=== PATIENT | female | born 1950 | race Caucasian/White ===

== ENCOUNTER → 2016-11-11 | Outpatient (CLI) | payer BC ==
[~2016-11-11] MED LIST: ALEN70TA2 PO; AMIO200T2 PO; BUME2TAB17 PO; CHOL200047 PO; CLON-202 PO; DIGO125T17 PO; GLIM4TAB3 PO; LEVO150T9 PO; LIRA0.6P SQ; LOSA25TA34 PO; METO25TA6 PO; ONDA4TAB7 PO; PANT40TA27 PO; POTA20TA69 PO; SERT50TA PO; SIMV20TA6 PO; SPIR50TA26 PO; WARF5TAB67 PO; WARF7.5T4 PO; [UNRECOGNIZED DRUG - CODE] PO
--- NOTE | 2016-11-11 13:50 | DI ---
Indication: ITS.REASON: S09.90XA INJURY OF HEAD PROCEDURE: CT HEAD W/O CONTRAST: Encounter: Initial Comparison: None Technique: Axial CT images through the head were performed without contrast. Iterative Reconstruction dose reducing technique was utilized. FINDINGS: The attenuation of the brain is normal.. There is no evidence of midline displacement. No hemorrhage, signs of acute territorial stroke, mass effect, mass lesions, or edema is evident. The visualized portions of the skull base, midface, and calvarium demonstrate no abnormality. The paranasal sinuses are well aerated and free of significant disease. The tympanic and mastoid cavities appear normal. A small scalp hematoma is noted in the posterior right parietal region. IMPRESSION: No acute intracranial abnormality or hemorrhage. Attempts to reach the referring provider was unsuccessful as this was a call report. A voice message was left to return the call. .
== END ==
LOC: IMA 13:07
PROVIDERS: ATTEND Family Medicine
DX: S00.03XA Contusion of scalp, initial encounter (principal); W19.XXXA Unspecified fall, initial encounter; Y93.9 Activity, unspecified; Y92.098 Other place in other non-institutional residence as the place of occurrence of the external cause; Y99.9 Unspecified external cause status; S09.90XA Unspecified injury of head, initial encounter

== ENCOUNTER 2016-11-18 17:40 | Emergency (ER) | payer BC ==
[~2016-11-18] VITALS: Ht 157.5 cm; Wt 109.1 kg
[~2016-11-18 17:40] MED LIST changes: -ONDA4TAB7 PO
[2016-11-18 17:42] VITALS: Ht 157.5 cm; Wt 109.1 kg
--- OUTSIDE RECORDS SUMMARY | 2016-11-18 17:44 | XMS REPORT | Continuity of Care Document ---
Author Author [facility] Organization [facility] Address Unknown Phone Unavailable Allergies Active Description Code Type Severity Reaction Onset Reported/Identified Relationship to Patient Clinical Status Yes iodine iodine Drug Allergy Unknown UNKNOWN 10/10/2016 Yes acetaminophen acetaminophen Drug Allergy Severe HIVES 10/16/2016 Yes amoxicillin amoxicillin Drug Allergy Severe GI 10/16/2016 Yes codeine codeine Drug Allergy Severe HIVES 10/16/2016 Yes erythromycin base erythromycin base Drug Allergy Severe GI 10/16/2016 Yes hydrocodone hydrocodone Drug Allergy Severe HIVES 10/16/2016 Yes meperidine meperidine Drug Allergy Severe HIVES 10/16/2016 Yes morphine morphine Drug Allergy Severe HIVES 10/16/2016 Yes penicillamine penicillamine Drug Allergy Severe GI 10/16/2016 Medications Problems Procedures Results Test Result Range CREATININE BEDSIDE - 10/10/16 13:59 METHOD Bedside CREATININE 0.9 mg/dL 0.6-1.0 GLUCOSE (POC) - 10/16/16 05:55 GLUCOSE (POC) 169 mg/dL 70-99 CBC - 10/16/16 06:05 MEAN CELL HGB 28.9 pg 27.0-33.0 MEAN CELL HGB CONCENTRATION 32.8 g/dL 32.0-37.0 MEAN CELL VOLUME 88.1 fl 80.0-100.0 RED BLOOD CELL 5.19 m/cumm 4.00-6.00 RED CELL DISTRIBUTION WIDTH 16.8 % 11.0- 15.6 WHITE BLOOD CELL 9.0 k/cumm 5.0-10.0 HEMOGLOBIN 15.0 gm/dL 12.0-16.0 HEMATOCRIT 45.7 % 37.0-47.0 PLATELET COUNT 248 k/cumm 150-450 METABOLIC PANEL, [facility] - 10/16/16 06:05 POTASSIUM 3.6 mmol/L 3.5-5.3 EST GFR (MDRD) 50 mL/min > 59 ANION GAP 10 mmol/L 5-15 GLUCOSE 169 mg/dL 70-99 CALCIUM 8.7 mg/dL 8.5-10.1 BLOOD UREA NITROGEN 16 mg/dL 7-20 CREATININE 1.1 mg/dL 0.6-1.0 SODIUM 139 mmol/L 135-148 CHLORIDE 101 mmol/L 98-110 AST/SGOT 20 Units/L 10-37 ALT/SGPT 25 Units/L < 66 CARBON DIOXIDE 28 mmol/L 21-32 TOTAL PROTEIN 7.5 gm/dL 6.4-8.2 ALBUMIN 3.6 gm/dL 3.4-5.0 BILI TOTAL 0.5 mg/dL 0.0-1.0 ALKALINE PHOSPHATASE TOTAL 68 IU/L 45- 117 MAGNESIUM - 10/16/16 06:05 MAGNESIUM 1.9 mg/dL 1.8-2.4 PROTHROMBIN TIME WITH INR - 10/16/16 06:05 INTERNATIONAL NORMAL RATIO 2.0 0.9-1.1 PROTHROMBIN TIME 23.9 sec 10.0-12.9 PARTIAL THROMBOPLASTIN TIME - 10/16/16 06:05 PARTIAL THROMBOPLASTIN TIME 38 sec 25-37 ACT PLUS (POC) - 10/16/16 09:42 ACT PLUS (POC) 166 sec [place] <160 ACT PLUS (POC) - 10/16/16 10:27 ACT PLUS (POC) 263 sec [place] <160 ACT PLUS (POC) - 10/16/16 10:52 ACT PLUS (POC) 272 sec [place] <160 ACT PLUS (POC) - 10/16/16 11:15 ACT PLUS (POC) 403 sec [place] <160 ACT PLUS (POC) - 10/16/16 11:42 ACT PLUS (POC) 347 sec [place] <160 ACT PLUS (POC) - 10/16/16 12:07 ACT PLUS (POC) 395 sec [place] <160 ACT PLUS (POC) - 10/16/16 12:36 ACT PLUS (POC) 401 sec [place] <160 GLUCOSE (POC) - 10/16/16 13:17 GLUCOSE (POC) 193 mg/dL 70-99 ACT PLUS (POC) - 10/16/16 13:19 ACT PLUS (POC) 366 sec [place] <160 GLUCOSE (POC) - 10/16/16 20:31 GLUCOSE (POC) 297 mg/dL 70-99 GLUCOSE (POC) - 10/17/16 05:54 GLUCOSE (POC) 189 mg/dL 70-99 GLUCOSE (POC) - 10/17/16 11:09 GLUCOSE (POC) 261 mg/dL 70-99 GLUCOSE (POC) - 10/17/16 17:22 GLUCOSE (POC) 231 mg/dL 70-99 GLUCOSE (POC) - 10/17/16 21:30 GLUCOSE (POC) 289 mg/dL 70-99 GLUCOSE (POC) - 10/18/16 06:12 GLUCOSE (POC) 141 mg/dL 70-99 GLUCOSE (POC) - 10/18/16 11:09 GLUCOSE (POC) 248 mg/dL 70-99 Encounters ACCT No. Visit Date/Time Discharge Status Pt. Type Provider Facility Loc./Unit Complaint [id number] 10/25/2013 08:28:00 10/25/2013 23 :59:59 CLS Outpatient [id number] 07/19/2013 13:40:00 07/19/2013 23 :59:59 CLS Outpatient
--- OUTSIDE RECORDS SUMMARY | 2016-11-18 17:44 | XMS REPORT | Continuity of Care Document ---
Author Author [facility] Organization [facility] Address Unknown Phone Unavailable Support Name Relationship Address Phone EDMUND RO MD Caregiver [address] [place] [address] [address] [place] [address] Unavailable EDMUND RO MD Caregiver [address] [place] [address] [address] [place] [address] Unavailable HECTOR LOPEZ MD Caregiver [address] [address] Unavailable KENNETH HELMS DO Caregiver [address] [place] [address] Unavailable RUDY FIGUEREDO Next Of Kin [address] [place] [address] Insurance Providers Guarantor Marilyn Figueredo Address [address] [place] [id number] Email DENIED/10-14-16 Payer [facility] Policy Number [id number] Subscriber's Name LoveMarilyn Relationship 18 Self Group Number [id number] Advance Directives Directive Response Recorded Date/Time Ordered Resuscitation Status Full Code 10/14/16 7:51pm DPOA for Healthcare Only No 10/15/16 9:16am Living Will No 10/14/16 11:06pm Problems Active Problems Medical Problem Onset Date Status Atherosclerotic heart disease of [place] coronary artery without angina pectoris Unknown Chronic Atrial fibrillation Unknown Chronic Atrial fibrillation with rapid ventricular response Unknown Acute Cardiac pacemaker Unknown Chronic Cellulitis of leg, left Unknown Acute Chest pain Unknown Acute Chronic combined systolic and diastolic heart failure Unknown Chronic Congestive heart failure (CHF) Unknown Chronic Diabetes type 2, controlled Unknown Acute Dyslipidemia Unknown Acute Essential (primary) hypertension Unknown Chronic Gastroenteritis due to norovirus Unknown Acute Hypertension Unknown Chronic Ischemic cardiomyopathy Unknown 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 Chronic Mixed hyperlipidemia Unknown Chronic Nonrheumatic mitral valve insufficiency Unknown Chronic Pain and swelling of left lower leg Unknown Acute Presence of automatic implantable cardioverter-defibrillator Unknown Chronic Presence of prosthetic heart valve Unknown Chronic Type 2 diabetes mellitus without complications Unknown Chronic Vomiting Unknown Acute Past Problems Medical Problem Onset Date Dyspnea Unknown Hypotension Unknown Tachycardia Unknown Tachycardia Unknown Medications Current Home Medications Medication Dose Units Route Directions Days Qty Instructions Start Date Alendronate Sodium (Fosamax) 70 Mg Tablet 70 Mg Oral Every Friday At 12: 00PM 04/23/16 Amiodarone Hcl 200 Mg Tablet 200 Mg Oral Twice A Day 10/14/16 Bumetanide (Bumex) 2 Mg Tablet 2 Mg Oral Twice A Day 06/16/12 Cholecalciferol (Vitamin D3) (Vitamin D3) 2,000 Unit Capsule 2,000 Unit Oral Daily 04/23/16 Clonazepam 0.5 Mg Tablet 0.5 Mg Oral Bedtime as needed for Prn Orders 05/12/13 Digoxin (Digox) 125 Mcg Tablet 125 Mcg Oral Give With Lunch 09/02 Glimepiride 4 Mg Tablet 4 Mg Oral Daily 09/02/16 Levothyroxine Sodium 150 Mcg Tablet 150 Mcg Oral Before Breakfast 05/11/13 Liraglutide (Victoza 2-Marc) 18 Mg/Syringe Inj 1.2 Mg Sub-Q 1500 09/02/16 Losartan Potassium 25 Mg Tablet 25 Mg Oral Daily 04/24/16 Metoprolol Tartrate 25 Mg Tablet 25 Mg Oral Twice A Day 09/02/16 Oxycodone Hcl/Acetaminophen (Percocet 7.5/325 Mg Tablet) 1 Tab Tablet 1 Tab Oral Every 4-6 Hours as needed for Pain 06/16/12 Pantoprazole Sodium 40 Mg Tablet.dr 40 Mg Oral Before Breakfast 04/23/16 Potassium Chloride 20 Meq Tab.prt.sr 20 Meq Oral Daily 06/16/12 Sertraline Hcl (Zoloft) 50 Mg Tablet 50 Mg Oral Bedtime 04/24/16 Simvastatin 20 Mg Tablet 20 Mg Oral Give With Supper 04/23/16 Spironolactone 50 Mg Tablet 50 Mg Oral Daily 03/07/10 Warfarin Sodium (Coumadin) 5 Mg Tablet 5 Mg Oral Sutuwethsa@1700 03/07/10 Warfarin Sodium 7.5 Mg Tablet 7.5 Mg Oral Mofr@1700 04/23/16 Past Home Medications Medication Directions Ordered Status Amiodarone Hcl 200 Mg Tablet, 200 Mg Oral Give With Supper 09/02/16 Discontinued Amiodarone Hcl (Pacerone) 200 Mg Tablet, 400 Mg Oral Daily 01/28/09 Discontinued Aspirin (Aspir 81) 81 Mg Tablet.dr, 81 Mg Oral Daily 05/20/13 Discontinued Aspirin (Enteric Aspirin) 81 Mg Tablet.dr, 81 Mg Oral Daily 07/20/08 Discontinued Atorvastatin Calcium (Lipitor) 40 Mg Tablet, 1 Tab Oral Bedtime 01/28/09 Discontinued Atorvastatin Calcium (Lipitor) 40 Mg Tablet, 40 Mg Oral Bedtime 10/08/08 Discontinued Calcium Carbonate (Calcium) 600 Mg Tablet, 600 Mg Oral Daily 07/20/08 Discontinued Capidex , 60 Twice A Day 01/28/09 Discontinued Carvedilol (Coreg) 3.125 Mg Tablet, 3.125 Mg Oral Twice A Day 03/07/10 Discontinued Carvedilol (Coreg) 6.25 Mg Tablet, 6.25 Mg Oral Twice A Day 10/08/08 Discontinued Clonazepam 0.5 Mg Tablet, 0.5 Mg Oral Daily 03/07/10 Discontinued Fiber Capsule , 07/20/08 Discontinued Furosemide (Lasix) 40 Mg Tablet, 40 Mg Oral Twice A Day 12/20/09 Discontinued Furosemide (Lasix) 20 Mg Tablet, 40 Mg Oral Twice A Day 09/26/09 Discontinued Furosemide 20 Mg Tablet, 1 Tab Oral Twice A Day 01/28/09 Discontinued Lansoprazole (Prevacid) 30 Mg Capsule.dr, 30 Mg Oral Daily 07/20/08 Discontinued Levothyroxine Sodium 137 Mcg Tablet, Daily 09/26/09 Discontinued Levothyroxine Sodium 150 Mcg Tablet, 150 Mcg Oral Daily 10/08/08 Discontinued Levothyroxine Sodium (Synthroid) 137 Mcg Tablet, 137 Mcg Oral Daily 07/20/08 Discontinued Lisinopril 2.5 Mg Tablet, 2.5 Mg Oral Daily 03/07/10 Discontinued Lisinopril 10 Mg Tablet, 10 Mg Oral Daily 07/20/08 Discontinued Mag Hydrox/Al Hydrox/Simeth (Mylanta Max Strength Liquid) 360 Ml Oral.susp, 360 Ml Oral 12/20/09 Discontinued Magnesium Hydroxide/Al Hydrox (Mylanta Liquid) 355 Ml Oral.susp, 355 Ml Oral 2 Tsp Hs 12/18/09 Discontinued Metoprolol Succinate 50 Mg Tab.sr.24h, 0.5 Tab Oral Twice A Day 01/28/09 Discontinued Minocycline Hcl (Minocin) 100 Mg Capsule, 100 Mg Oral Before Meals Twice A Day 04/25/16 Discontinued Nature Multi Vit , 07/20/08 Discontinued Nitrofurantoin/Nitrofuran Mac (Nitrofurantoin-Macro 100 Mg) 100 Mg Capsule, 100 Mg Oral Twice A Day 05/20/13 Discontinued Omeprazole (Prilosec) 40 Mg Capsule.dr, 40 Mg Oral Daily 01/23/10 Discontinued Omeprazole Magnesium (Prilosec Otc) 20 Mg Tablet.dr, 20 Mg Oral Daily Discontinued Oxycodone Hcl/Acetaminophen (Percocet 10/650 Mg Tablet) 1 Tab Tablet, 1 Tab Oral Every 4 Hours Prn 01/23/10 Discontinued Potassium Chloride (Micro-K) 10 Meq Capsule.sa, 20 Meq Oral Three Times A Day 12/20/09 Discontinued Potassium Chloride (Klor-Con M20) 20 Meq Tab.prt.sr, 20 Meq Oral Twice A Day 01/28/09 Discontinued Potassium Chloride (Klor-Con M20) 20 Meq Tab.prt.sr, 20 Meq Oral Twice A Day 10/05/08 Discontinued Prasugrel Hcl (Effient) 10 Mg Tablet, 10 Mg Oral Daily 05/20/13 Discontinued Ranitidine Hcl (Zantac) 150 Mg Tablet, 150 Mg Oral Twice A Day 12/19/09 Discontinued Ranitidine Hcl (Zantac) 150 Mg Tablet.eff, 150 Mg Oral Twice A Day 09/26/09 Discontinued Rosuvastatin Calcium (Crestor) 20 Mg Tablet, 20 Mg Oral Daily 06/16/12 Discontinued Simvastatin , 10/09/15 Discontinued Simvastatin (Zocor) 20 Mg Tablet, 20 Mg Oral Daily 03/07/10 Discontinued Triamterene/Hydrochlorothiazid (Maxzide 75/50 Tablet) 1 Tab Tablet, 0.5 Mg Oral Three Times A Day 12/18/09 Discontinued Warfarin Sodium (Coumadin) 5 Mg Tablet, 2.5 Mg Oral Every Friday05/12/13 Discontinued Warfarin Sodium (Coumadin) 7.5 Mg Tablet, 7.5 Mg Oral Q Day Except Fri Discontinued Warfarin Sodium 5 Mg Tablet, Fri,Fri09/26/09 Discontinued Warfarin Sodium 5 Mg Tablet, 5 Mg Oral Daily 10/08/08 Discontinued Social History Social History Problem Response Recorded Date/Time Onset Date Status Reason for Hospitalization afib RVR 10/15/2016 3:18pm Not Applicable Not Applicable Chewing Tobacco Status No 05/12/2013 1:02pm Not Applicable Not Applicable Hx Substance Use No 10/14/2016 5:55pm Not Applicable Not Applicable Hx Alcohol Use No 10/14/2016 5:55pm Not Applicable Not Applicable Has the pt used tobacco in the last 12 months No 10/14/2016 11:07pm Not Applicable Not Applicable Query Response Start Date Stop Date Smoking Status Former smoker Hospital Discharge Instructions Instructions: Care Instructions: I was in the hospital because (patient own words): in a.fib Discharge Diet: Resume heart healthy diet Discharge Activity: May resume usual activity as tolerated. Follow Up Appointments: Follow up with Dr. Ro on: in 2 weeks following Ablation [phone] Pending Lab / Results: No Pending Lab Patient Instructions: Ablation with Dr. Bishop on 10/16/16 Expected Signs/Symptoms: NA Notify Physician If: chest pain, difficulty breathing. During Business Hours:: Please call the physician's office at [phone] After Business Hours:: Please call [phone] and have the dielectric embossing machine operator page the physician. Pain Management/Treatment: NA Pain Scale Utilized to Educate Patient: 0-10 Pain Scale Wound/Incision Care: NA. Condition at time of discharge: Good Plan of Care Discharge Date 10/15/16 4:20pm Disposition 01 DISCHARGED HOME, SELF-CARE Instructions/Education Provided [facility] Congestive Heart Failure Hypotension (DC) Tachycardia (ED) Prescriptions See Medication Section Care Plan and Goals See Discharge Instructions Section Functional Status Query Response Date Recorded Mobility Status Ambulatory October 15, 2016 12:24am Assistive Devices None October 15, 2016 12:24am Activity Limitations None October 15, 2016 12:24am Feeding Ability Independent October 15, 2016 12:24am Toileting Ability Independent October 15, 2016 12:24am Grooming Ability Independent October 15, 2016 12:24am Dressing Ability Independent October 15, 2016 12:24am Driving Ability Independent October 15, 2016 12:24am Housework Ability Independent October 15, 2016 12:24am Meal Preparation Ability Independent October 15, 2016 12:24am Stair Climbing Ability Independent October 15, 2016 12:24am Ability to complete ADL's impeded by No change October 15, 2016 12:24am Cognitive/Perceptual Impairments None October 15, 2016 12:24am Preferred Method of Learning Listening October 15, 2016 12:24am Allergies, Adverse Reactions, Alerts Allergen Type Severity Reaction Status Last Updated Iodinated Contrast Media - Oral and Adverse Reaction Intermediate VOMITING Active 10/14/16 Penicillin Allergy Intermediate HIVES Active 10/14/16 Morphine Allergy Unknown HEADACHES Active 10/14/16 Codeine Allergy Intermediate HIVES Active 10/14/16 Hydrocodone Adverse Reaction Intermediate ABDOMINAL CRAMPS Active 10/14/16 Erythromycin base Adverse Reaction Intermediate ABDOMINAL CRAMPS Active Amoxicillin Allergy Intermediate hives Active 10/14/16 Metformin Allergy Intermediate NAUSEA & VOMITING Active 10/14/16 Meperidine Allergy Unknown HIVES Active 10/14/16 ANESTHETICS Adverse Reaction Mild NAUSEA Active 04/24/16 Immunizations Query Response on File Recorded Date/Time Hx Influenza Vaccination Y 05/201610/14/16 11:07pm Hx Pneumococcal Vaccination No 10/14/16 11:07pm Hx Influenza Vaccination Y 05/201610/14/16 11:07pm DTaP Vaccine History 2016 10/14/16 5:55pm Influenza Vaccine Hx 05/201610/15/16 11:44am Vital Signs Acute Vital Signs Vital Response Date/Time Temperature (Fahrenheit) 97.5 deg F (96.8 - 99.1) 10/15/2016 7:45am Temperature (Calculated Celsius) 36.64030 degrees C (36.0 - 37.3) 10/15/2016 7:45am Pulse Rate (adult) 107 bpm (60 - 100) 10/15/2016 11:39am Respiratory Rate 16 breaths/min (10 - 20) 10/15/2016 11:39am O2 Sat by Pulse Oximetry 95 % (90 - 100) 10/15/2016 11:39am Oxygen Delivery Method Nasal Cannula 09/02/2016 10:37pm Oxygen Delivery Method Room Air 10/15/2016 11:40am Oxygen Flow Rate 2.00 L/min 10/15/2016 11:39am Blood Pressure 125/84 mm Hg 10/15/2016 11:39am Blood Pressure Source Automatic Cuff 10/15/2016 11:39am Height (Feet) 5 feet 10/15/2016 9:16am Height (Inches) 6.00 inches 10/15/2016 9:16am Weight (Kilograms) 111.000 kg 10/15/2016 7:48am Body Mass Index (BMI) 39.3 10/14/2016 11:05pm Results Laboratory Results Test Name Result Units Flags Reference Collection Date/Time Result Date/ Time Comments D-Dimer 173 NG/ML 0-230 08/11/2016 3:24am 08/11/2016 3:54am <230 NG/ ML D-DU=PRESUMPTIVE NEGATIVE FOR PE OR DVT >230 NG/ML D-DU=ADDITIONAL EVAL FOR PE OR DVT RECOMMENDED Unconjugated Bilirubin 0.60 MG/DL 0.00-1.10 09/03/2016 8:48am 2016 9:05am Conjugated Bilirubin 0.00 MG/DL 0.00-0.30 09/03/2016 8:48am 09/03/2016 9:05am Magnesium Level 2.0 MG/DL 1.6-2.3 09/03/2016 8:48am 09/03/2016 10:01am Thyroid Stimulating Hormone (TSH) 4.45 MIU/L 0.47-4.68 09/02/2016 2: 57pm 09/02/2016 4:13pm Adenovirus (PCR) NEGATIVE NEGATIVE 09/02/2016 5:13pm 09/02/2016 6: 47pm Coronavirus Type 229E (PCR) NEGATIVE NEGATIVE 09/02/2016 5:13pm 09/02 6:47pm Coronavirus Type HKU1 (PCR) NEGATIVE NEGATIVE 09/02/2016 5:13pm 09/02 6:47pm Coronavirus Type NL63 (PCR) NEGATIVE NEGATIVE 09/02/2016 5:13pm 09/02 6:47pm Coronavirus Type OC43 (PCR) DETECTED A NEGATIVE 09/02/2016 5:13pm 6:47pm Human Metapneumovirus (PCR) NEGATIVE NEGATIVE 09/02/2016 5:13pm 09/02 6:47pm Enterovirus/Rhinovirus (PCR) NEGATIVE NEGATIVE 09/02/2016 5:13pm 6:47pm Influenza Virus Type A (PCR) NEGATIVE NEGATIVE 09/02/2016 5:13pm 6:47pm Influenza Virus Type B (PCR) NEGATIVE NEGATIVE 09/02/2016 5:13pm 6:47pm Parainfluenza Type 1 (PCR) NEGATIVE NEGATIVE 09/02/2016 5:13pm 2016 6:47pm Parainfluenza Type 2 (PCR) NEGATIVE NEGATIVE 09/02/2016 5:13pm 2016 6:47pm Parainfluenza Type 3 (PCR) NEGATIVE NEGATIVE 09/02/2016 5:13pm 2016 6:47pm Parainfluenza Type 4 (PCR) NEGATIVE NEGATIVE 09/02/2016 5:13pm 2016 6:47pm Respiratory Syncytial Virus (PCR) NEGATIVE NEGATIVE 09/02/2016 5:13pm 09/02/2016 6:47pm Bordetella parapertussis DNA (PCR) NEGATIVE NEGATIVE 09/02/2016 5: 13pm 09/02/2016 6:47pm Chlamydia pneumoniae DNA (PCR) NEGATIVE NEGATIVE 09/02/2016 5:13pm 6:47pm Mycoplasma pneumoniae (PCR) NEGATIVE NEGATIVE 09/02/2016 5:13pm 09/02 6:47pm White Blood Count 7.7 T/MM3 4.5-11.0 10/14/2016 3:55pm 10/14/2016 3: 59pm Red Blood Count 5.08 M/MM3 4.00-5.20 10/14/2016 3:55pm 10/14/2016 3: 59pm Hemoglobin 14.6 GM/DL 12-16 10/14/2016 3:55pm 10/14/2016 3:59pm Hematocrit 45.0 % 36-46 10/14/2016 3:55pm 10/14/2016 3:59pm Mean Corpuscular Volume 88.6 UM3 80-100 10/14/2016 3:55pm 10/14/2016 3: 59pm Mean Corpuscular Hemoglobin 28.7 UUG 26-34 10/14/2016 3:55pm 2016 3:59pm Mean Corpuscular Hemoglobin Concent 32.4 GM/DL 31-37 10/14/2016 3:55pm 10/14/2016 3:59pm RDW Standard Deviation 53.0 FL H 36.9-50.2 10/14/2016 3:55pm 10/14/2016 3:59pm Platelet Count 224 T/MM3 130-400 10/14/2016 3:55pm 10/14/2016 3:59pm Mean Platelet Volume 10.3 UM3 9.4-12.4 10/14/2016 3:55pm 10/14/2016 3: 59pm Neutrophils (%) (Auto) 70.4 % H 33-66 10/14/2016 3:55pm 10/14/2016 3: 59pm Lymphocytes (%) (Auto) 19.0 % L 23-45 10/14/2016 3:55pm 10/14/2016 3: 59pm Monocytes (%) (Auto) 6.6 % 0-9.0 10/14/2016 3:55pm 10/14/2016 3:59pm Eosinophils (%) (Auto) 3.4 % 0-4 10/14/2016 3:55pm 10/14/2016 3:59pm Basophils (%) (Auto) 0.3 % 0-2 10/14/2016 3:55pm 10/14/2016 3:59pm Immature Granulocyte % (Auto) 0.3 % 0.0-0.5 10/14/2016 3:55pm 2016 3:59pm Absolute Neutrophils (auto) 5.4 T/MM3 1.8-7.7 10/14/2016 3:55pm 2016 3:59pm Absolute Lymphocytes (auto) 1.5 T/MM3 1-4.8 10/14/2016 3:55pm 2016 3:59pm Absolute Monocytes (auto) 0.5 T/MM3 0-0.8 10/14/2016 3:55pm 10/14/2016 3:59pm Absolute Eosinophils (auto) 0.3 T/MM3 0-0.5 10/14/2016 3:55pm 2016 3:59pm Absolute Basophils (auto) 0.0 T/MM3 0-0.2 10/14/2016 3:55pm 10/14/2016 3:59pm Absolute Immature Granulocyte (auto 0.02 T/MM3 0.00-0.03 10/14/2016 3: 55pm 10/14/2016 3:59pm Prothromb Time International Ratio 3.08 H 0.76-1.04 10/14/2016 3:55pm 10/14/2016 5:04pm THERAPUTIC RANGE=2.00-3.00 FOR ANTI-THROMBOSIS THERAPUTIC RANGE=2.50-3.50 FOR IMPLANTED VALVE Icterus Index < 2 0-7 10/14/2016 3:55pm 10/14/2016 4:21pm Chemistry Specimen Hemolysis < 15 0-25 10/14/2016 3:55pm 10/14/2016 4 :21pm 0-25: Specimen Exhibited No Hemolysis. Turbidity < 20 0-20 10/14/2016 3:55pm 10/14/2016 4:21pm Sodium Level 138 MEQ/L 134-144 10/14/2016 3:55pm 10/14/2016 4:09pm Potassium Level 3.7 MEQ/L 3.6-5 10/14/2016 3:55pm 10/14/2016 4:09pm Chloride Level 99 MEQ/L 98-107 10/14/2016 3:55pm 10/14/2016 4:09pm Carbon Dioxide Level 28 MEQ/L 22-30 10/14/2016 3:55pm 10/14/2016 4: 09pm Anion Gap 11 MEQ/L 5-15 10/14/2016 3:55pm 10/14/2016 4:09pm Blood Urea Nitrogen 18.0 MG/DL H 7-10/14/2016 3:55pm 10/14/2016 4: 09pm Creatinine 0.9 MG/DL 0.7-1.2 10/14/2016 3:55pm 10/14/2016 4:09pm BUN/Creatinine Ratio 20 RATIO 6-10/14/2016 3:55pm 10/14/2016 4:09pm Glomerular Filtration Rate Calc 63 10/14/2016 3:55pm 10/14/2016 4: 09pm Glucose Level 260 MG/DL H 65-110 10/14/2016 3:55pm 10/14/2016 4:09pm Calculated Osmolality 277 MOSM/KG 261-280 10/14/2016 3:55pm 10/14/2016 4:09pm Calcium Level 8.7 MG/DL 8.4-10.2 10/14/2016 3:55pm 10/14/2016 4:09pm Total Bilirubin 0.80 MG/DL 0.20-1.30 10/14/2016 3:55pm 10/14/2016 4: 09pm Alkaline Phosphatase 79 U/L 38-126 10/14/2016 3:55pm 10/14/2016 4:09pm Total Protein 7.0 G/DL 6.3-8.2 10/14/2016 3:55pm 10/14/2016 4:09pm Albumin 3.8 G/DL 3.5-5.0 10/14/2016 3:55pm 10/14/2016 4:09pm Globulin 3.2 G/DL 2.4-3.6 10/14/2016 3:55pm 10/14/2016 4:09pm Albumin/Globulin Ratio 1.2 RATIO 1.1-2.2 10/14/2016 3:55pm 10/14/2016 4 :09pm Aspartate Amino Transf (AST/SGOT) 24 U/L 14-36 10/14/2016 3:55pm 2016 4:09pm Alanine Aminotransferase (ALT/SGPT) 33 U/L 9-52 10/14/2016 3:55pm 10/14 4:09pm Troponin I < 0.012 ng/ml 0-0.12 10/14/2016 3:55pm 10/14/2016 4:21pm Troponin values with a difference of 55% increase from orginal troponin value represent a true biological DELTA value. (%increase Calc=Orginal Troponin value, divided by subsequent Troponin value, multiplied by 100) RJ-Jsq-N-Type Natriuretic Peptide 1910 PG/ML H 0-175 10/14/2016 3:55pm 10/14/2016 4:17pm Rule in cut points: <50 years old=450; 50-75 years old=900; >75 years old=1800; When utilizing ProBNP rule-in cut points, adjustment for impaired renal function is typically not required. Plasma Lactate 2.1 MMOL/L 0.6-2.2 10/14/2016 7:15pm 10/14/2016 7:28pm Procalcitonin < 0.05 NG/ML 10/14/2016 7:15pm 10/14/2016 7:45pm PCT < /=0.5 ng/mL - sepsis not likely; PCT >0.5 and </=2 ng/mL - sepsis possible; PCT >2 ng/mL - sepsis likely; PCT >/=10 ng/mL - systemic inflammatory response - sepsis or septic shock highly indicated. Digoxin Level 0.5 NG/ML L 0.8-2.0 10/14/2016 3:55pm 10/14/2016 4:31pm Urine Collection Type CLEANCATCH-MIDSTREAM 10/14/2016 6:52pm 2016 7:01pm Urine Color YELLOW YELLOW 10/14/2016 6:52pm 10/14/2016 7:01pm Urine Turbidity CLEAR CLEAR 10/14/2016 6:52pm 10/14/2016 7:01pm Urine Specific [place] 1.010 L 1.015-1.025 10/14/2016 6:52pm 2016 7:01pm Urine pH 6.0 5.0-8.0 10/14/2016 6:52pm 10/14/2016 7:01pm Urine Leukocyte Esterase NEGATIVE NEGATIVE 10/14/2016 6:52pm 2016 7:01pm Urine Nitrite NEGATIVE NEGATIVE 10/14/2016 6:52pm 10/14/2016 7:01pm Urine Protein NEGATIVE NEGATIVE 10/14/2016 6:52pm 10/14/2016 7:01pm Urine Glucose (UA) TRACE A NEGATIVE 10/14/2016 6:52pm 10/14/2016 7: 01pm Urine Ketones NEGATIVE NEGATIVE 10/14/2016 6:52pm 10/14/2016 7:01pm Urine Urobilinogen 0.2 EU/DL NORMAL 10/14/2016 6:52pm 10/14/2016 7: 01pm Urine Bilirubin NEGATIVE NEGATIVE 10/14/2016 6:52pm 10/14/2016 7: 01pm Urine Blood NEGATIVE NEGATIVE 10/14/2016 6:52pm 10/14/2016 7:01pm Urinalysis Comment MICROSCOPIC NOT IND. 10/14/2016 6:52pm 2016 7:01pm Glucometer 171 mg/dL H 65-110 10/15/2016 5:52am 10/15/2016 6:23am Name: MARILYN FIGUEREDO Unit #: [id number] : 1950 Sex: F Admit Date: Loc / Svc: ED Discharge Date: DIAGNOSTIC IMAGING REPORT Report #: [id number] [facility] GUSTAVO Duran INDICATION: ITS.REASON: shortness of air PROCEDURE: CHEST 2-VIEWS UPRIGHT (PA \\T\\ LAT) Encounter: Initial COMPARISON: 09/02/2016 FINDINGS: The lungs are clear without evidence of focal abnormal airspace opacity. There is no pleural effusion or pneumothorax. There is a left subclavian ICD in place, with the leads unchanged. The patient is status post median sternotomy. There is moderate cardiomegaly with mild pulmonary vascular congestion. No definite overt interstitial pulmonary edema. There is no significant skeletal abnormality. IMPRESSION: Cardiomegaly and pulmonary vascular congestion without overt CHF. . Procedures Procedure Status Date Provider(s) [id number] Completed 06/27/16 Chest x-ray 1 view frontal Completed 08/11/16 Comprehen metabolic panel Completed 08/11/16 Assay of magnesium Completed 08/11/16 Assay of natriuretic peptide Completed 08/11/16 Assay thyroid stim hormone Completed 08/11/16 Assay of troponin quant Completed 08/11/16 Complete cbc w/auto diff wbc Completed 08/11/16 Fibrin degradation quant Completed 08/11/16 Prothrombin time Completed 08/11/16 Electrocardiogram tracing Completed 08/11/16 Hydrate iv infusion add-on Completed 08/11/16 Ther/proph/diag inj sc/im Completed 08/11/16 Ther/proph/diag inj iv push Completed 08/11/16 Emergency dept visit Completed 08/11/16 [id number]"INJECTION, ENOXAPARIN SODIUM, 10 MG" Completed 08/11/16 [id number]"INFUSION, NORMAL SALINE SOLUTION , 1000 CC" Completed 08/11/16 Routine venipuncture Completed 09/02/16 Routine venipuncture Completed 09/02/16 Routine venipuncture Completed 09/02/16 Chest x-ray 1 view frontal Completed 09/02/16 Metabolic panel total ca Completed 09/02/16 Metabolic panel total ca Completed 09/02/16 Hepatic function panel Completed 09/02/16 Reagent strip/blood glucose Completed 09/02/16 Reagent strip/blood glucose Completed 09/02/16 Reagent strip/blood glucose Completed 09/02/16 Assay of magnesium Completed 09/02/16 Assay of magnesium Completed 09/02/16 Assay thyroid stim hormone Completed 09/02/16 Assay of troponin quant Completed 09/02/16 Assay of troponin quant Completed 09/02/16 Assay of troponin quant Completed 09/02/16 Complete cbc w/auto diff wbc Completed 09/02/16 Complete cbc w/auto diff wbc Completed 09/02/16 Prothrombin time Completed 09/02/16 Prothrombin time Completed 09/02/16 Chylmd pneum dna amp probe Completed 09/02/16 M.pneumon dna amp probe Completed 09/02/16 Resp virus 12-25 targets Completed 09/02/16 Detect agent nos dna amp Completed 09/02/16 Electrocardiogram tracing Completed 09/02/16 Electrocardiogram tracing Completed 09/02/16 Measure blood oxygen level Completed 09/02/16 Hydrate iv infusion add-on Completed 09/02/16 Ther/proph/diag inj iv push Completed 09/02/16 Tx/pro/dx inj new drug addon Completed 09/02/16 Initial observation care Completed 09/02/16 Initial observation care Completed 09/02/16 Initial observation care Completed 09/02/16 Initial observation care Completed 09/02/16 Emergency dept visit Completed 09/02/16 [id number]"INJECTION, FUROSEMIDE, UP TO 20 MG" Completed 09/02/16 [id number]"INFUSION, NORMAL SALINE SOLUTION , 1000 CC" Completed 09/02/16 Encounters Encounter Location Arrival/Admit Date Discharge/Depart Date Attending Provider Discharged Inpatient (obs) [facility] 10/14/16 7:50pm 10/15/16 4: 20pm EDMUND RO MD Registered Clinic [facility] 10/08/16 12:23pm EDMUND RO MD Discharged Inpatient (obs) [facility] 09/02/16 4:10pm 09/03/16 1: 15pm EDMUND RO MD Departed Emergency Room [facility] 08/11/16 2:51am 08/11/16 6: 00am FERNANDO PARNELL MD Discharged Recurring [facility] 06/27/16 3:20pm 08/14/16 11:59pm KENNETH HELMS DO Discharged [facility] 06/17/16 9:56am 08/01/16 11:59pm KENNETH HELMS DO
--- OUTSIDE RECORDS SUMMARY | 2016-11-18 17:45 | XMS REPORT ---
Author Author [place], [facility] - Organization Unknown Address Unknown Phone Unavailable Allergies, Adverse Reactions, Alerts * Tape (as Environmental allergen) causes spears skin. * Morphine causes Unknown "severe headache". * Lortab causes nausea and Unknown nausea. * Penicillins causes hives. * IV Dye, Iodine Containing causes vomit. * Erythromycin Base causes nausea. * Demerol causes Hives. * Codeine causes nausea. Onset old. * Amoxicillin causes Hives. * No Latex Allergy. * No Known Food Allergies. Problems * Atrial Fibrillation & Flutter* Status:Active. * Catheterization of Left Heart* Status:Inactive. * Chronic Pain* Status:Active. * Diabetes Mellitus, Type 2* Status:Active. * Tissue Perfusion Impairment* Status:Active. Procedures No relevant procedures performed. Medication It is the responsibility of the patient or patient sales representative business courses to confirm the list of medications with either the patient's personal care provider or the patient's follow-up care provider to ensure the patient has an appropriate list of medications to take at home. Discharge medications* bumetanide 2 mg Tablet, Ordered By: Khushi Ruiz Directions: 1 tablet oral three times a day * clonazePAM (KlonoPIN) 0.5 mg Tablet, Ordered By: Khushi Ruiz Directions: 1 tablet oral daily PRN anxiety * esomeprazole magnesium (NexIUM) 40 mg capsule,delayed release(DR/EC), Ordered By: Khushi Ruiz Directions: 1 capsule oral daily * glimepiride 2 mg Tablet, Ordered By: Khushi Ruiz Directions: 1 tablet oral daily * levothyroxine (Synthroid) 150 mcg Tablet, Ordered By: Khushi Ruiz Directions: 1 tablet oral daily * oxyCODONE-acetaminophen (Percocet) 7.5 mg-325 mg Tablet, Ordered By: Khushi Ruiz Directions: 1 tablet oral daily PRN pain * potassium chloride (Klor-Con M20) 20 mEq tablet,ER particles/crystals, Ordered By: Khushi Ruiz Directions: 1 tablet oral twice a day * rosuvastatin (Crestor) 20 mg Tablet, Ordered By: Khushi Ruiz Directions: 1 tablet oral daily at bedtime * spironolactone 50 mg Tablet, Ordered By: Khushi Ruiz Directions: 1 tablet oral daily * warfarin 5 mg Tablet, Ordered By: Kuhshi Ruiz Directions: 0.5 tablet oral every Friday * warfarin 5 mg Tablet, Ordered By: Khushi Ruiz Directions: 1 tablet oral daily every Friday, Friday, , Friday, Friday and Friday * nitrofurantoin monohyd/m-cryst 100 mg Capsule, Ordered By: Khushi Ruiz Directions: 1 capsule oral twice a day Additional Instructions: for 6 days * metoprolol tartrate 50 mg Tablet, Ordered By: Khushi Ruiz Directions: 1 tablet oral twice a day Stopped medications* amiodarone 200 mg Tablet Directions: 1 tablet oral daily * Prednisone 20 mg Tablet 3 oral the day before procedure and 3 oral day after procedure Last Taken: 05/11/2013 AM Results LAB--BEDSIDE TESTING from 05/13/2013 11:11 PMGlucose NPT 224 mg/dL H (70-100 mg/ dL) LAB--BEDSIDE TESTING from 05/14/2013 6:11 AMGlucose NPT 175 mg/dL H (70-100 mg/ dL) LAB--BEDSIDE TESTING from 05/14/2013 12:40 PMGlucose NPT 162 mg/dL H (70-100 mg/ dL) LAB--BEDSIDE TESTING from 05/14/2013 5:40 PMGlucose NPT 394 mg/dL H (70-100 mg/ dL) LAB--BEDSIDE TESTING from 05/15/2013 4:54 AMGlucose NPT 295 mg/dL H (70-100 mg/ dL) LAB--BEDSIDE TESTING from 05/15/2013 12:29 PMGlucose NPT 266 mg/dL H (70-100 mg/ dL) LAB--BEDSIDE TESTING from 05/15/2013 2:47 PMGlucose NPT 266 mg/dL H (70-100 mg/ dL) LAB--BEDSIDE TESTING from 05/15/2013 9:28 PMGlucose NPT 243 mg/dL H (70-100 mg/ dL) LAB--BEDSIDE TESTING from 05/16/2013 5:33 AMGlucose NPT 245 mg/dL H (70-100 mg/ dL) LAB--BEDSIDE TESTING from 05/16/2013 11:27 AMGlucose NPT 260 mg/dL H (70-100 mg/ dL) LAB--BEDSIDE TESTING from 05/16/2013 6:00 PMGlucose NPT 196 mg/dL H (70-100 mg/ dL) LAB--BEDSIDE TESTING from 05/16/2013 9:12 PMGlucose NPT 145 mg/dL H (70-100 mg/ dL) LAB--BEDSIDE TESTING from 05/17/2013 5:59 AMGlucose NPT 163 mg/dL H (70-100 mg/ dL) LAB--BEDSIDE TESTING from 05/17/2013 10:12 AMGlucose NPT 188 mg/dL H (70-100 mg/ dL) LAB--BEDSIDE TESTING from 05/17/2013 12:25 PMGlucose NPT 151 mg/dL H (70-100 mg/ dL) LAB--BEDSIDE TESTING from 05/17/2013 2:47 PMGlucose NPT 115 mg/dL H (70-100 mg/ dL) LAB--BEDSIDE TESTING from 05/17/2013 4:27 PMGlucose NPT 82 mg/dL (70-100 mg/dL) LAB--BEDSIDE TESTING from 05/17/2013 8:10 PMGlucose NPT 143 mg/dL H (70-100 mg/ dL) LAB--CHEMISTRY from 05/14/2013 3:02 AMAnion Gap 11 (3-20 ) Albumin 3.4 g/dL L (3.5-4.8 g/dL) B-Type Natriuretic Pep. 213 pg/mL H (0-99 pg/mL) BUN 25 mg/dL H (4-20 mg/dL) Calcium 9.2 mg/dL (8.6-10.0 mg/dL) Chloride 97 mEq/L L (99-109 mEq/L) CO2 29 mEq/L (22-32 mEq/L) Creatinine 1.39 mg/dL H (0.44-1.03 mg/dL) eGFR 39 A (>60- ) Glucose 205 mg/dL H (70-100 mg/dL) Potassium 4.2 mEq/L (3.6-5.1 mEq/L) Magnesium 2.4 mg/dL (1.8-2.5 mg/dL) Sodium 137 mEq/L (136-144 mEq/L) Phosphorus 3.1 mg/dL (2.4-4.7 mg/dL) LAB--CHEMISTRY from 05/15/2013 5:32 AMAnion Gap 15 (3-20 ) Albumin 3.3 g/dL L (3.5-4.8 g/dL) BUN 42 mg/dL H (4-20 mg/dL) Calcium 9.2 mg/dL (8.6-10.0 mg/dL) Chloride 96 mEq/L L (99-109 mEq/L) CO2 25 mEq/L (22-32 mEq/L) Creatinine 1.99 mg/dL H (0.44-1.03 mg/dL) eGFR 25 A (>60- ) Glucose 279 mg/dL H (70-100 mg/dL) Potassium 4.6 mEq/L (3.6-5.1 mEq/L) Sodium 136 mEq/L (136-144 mEq/L) Phosphorus 7.2 mg/dL H (2.4-4.7 mg/dL) LAB--CHEMISTRY from 05/16/2013 3:40 AMAnion Gap 9 (3-20 ) Albumin 2.7 g/dL L (3.5-4.8 g/dL) BUN 44 mg/dL H (4-20 mg/dL) Calcium 7.7 mg/dL L (8.6-10.0 mg/dL) Chloride 98 mEq/L L (99-109 mEq/L) CO2 28 mEq/L (22-32 mEq/L) Creatinine 1.73 mg/dL H (0.44-1.03 mg/dL) eGFR 30 A (>60- ) Glucose 271 mg/dL H (70-100 mg/dL) Potassium 4.4 mEq/L (3.6-5.1 mEq/L) Magnesium 2.4 mg/dL (1.8-2.5 mg/dL) Sodium 135 mEq/L L (136-144 mEq/L) Phosphorus 4.8 mg/dL H (2.4-4.7 mg/dL) TSH (with reflex Free T4) 0.68 uIU/mL (0.35-5.50 uIU/mL) LAB--CHEMISTRY from 05/17/2013 5:58 AMAnion Gap 8 (3-20 ) B-Type Natriuretic Pep. 179 pg/mL H (0-99 pg/mL) BUN 34 mg/dL H (4-20 mg/dL) Calcium 8.0 mg/dL L (8.6-10.0 mg/dL) Chloride 99 mEq/L (99-109 mEq/L) CO2 30 mEq/L (22-32 mEq/L) Creatinine 1.40 mg/dL H (0.44-1.03 mg/dL) eGFR 38 A (>60- ) Glucose 146 mg/dL H (70-100 mg/dL) Potassium 4.7 mEq/L (3.6-5.1 mEq/L) Magnesium 2.5 mg/dL (1.8-2.5 mg/dL) Sodium 137 mEq/L (136-144 mEq/L) LAB--COAG STUDIES from 05/15/2013 5:32 AMINR 1.2 (0.9-1.2 ) LAB--COAG STUDIES from 05/16/2013 3:40 AMINR 1.1 (0.9-1.2 ) LAB--COAG STUDIES from 05/16/2013 1:07 PMPTT 21.1 sec L (25.0-35.0 sec) LAB--COAG STUDIES from 05/16/2013 10:49 PMPTT 157.1 sec HH (25.0-35.0 sec) LAB--COAG STUDIES from 05/17/2013 5:58 AMINR 1.2 (0.9-1.2 ) PTT 69.5 sec H (25.0-35.0 sec) LAB--HEMATOLOGY from 05/14/2013 3:02 AMHCT 46.6 % (37.0-47.0 %) HGB 14.8 g/dl (12.0-16.0 g/dl) MCH 27.3 pg (27.0-32.0 pg) MCHC 31.8 g/dL L (32.0-36.0 g/dL) MCV 86.0 fL (82.0-99.0 fL) MPV 10.1 fL (9.4-12.4 fL) Platelet Count 265 K/uL (150-400 K/uL) RBC 5.42 M/uL H (4.00-5.20 M/uL) RDW 16.9 % H (11.5-14.5 %) WBC 9.3 K/uL (4.8-10.8 K/uL) LAB--HEMATOLOGY from 05/14/2013 9:10 PMAbsolute Basophils 0.03 THOUS (0.00-0.20 THOUS) Absolute Eosinophils 0.01 THOUS (0.00-0.50 THOUS) Absolute Lymphocytes 1.29 THOUS (0.80-3.30 THOUS) Absolute Monocytes 1.24 THOUS H (0.30-1.00 THOUS) Absolute Neutrophils 21.09 THOUS H (1.90-7.00 THOUS) HCT 42.3 % (37.0-47.0 %) HGB 13.9 g/dl (12.0-16.0 g/dl) MCH 28.3 pg (27.0-32.0 pg) MCHC 32.9 g/dL (32.0-36.0 g/dL) MCV 86.0 fL (82.0-99.0 fL) MPV 10.5 fL (9.4-12.4 fL) Platelet Count 367 K/uL (150-400 K/uL) RBC 4.92 M/uL (4.00-5.20 M/uL) RDW 16.9 % H (11.5-14.5 %) WBC 23.9 K/uL H (4.8-10.8 K/uL) Basophils 0 % (0-2 %) Eosinophils 0 % (0-4 %) Immature Granulocytes 1.1 % H (0.0-1.0 %) Lymphocytes 5 % L (20-46 %) Monocytes 5 % (4-11 %) Differential Scanned Slide Neutrophils 88 % H (51-75 %) LAB--HEMATOLOGY from 05/15/2013 5:32 AMAbsolute Basophils 0.02 THOUS (0.00-0.20 THOUS) Absolute Eosinophils 0.00 THOUS (0.00-0.50 THOUS) Absolute Lymphocytes 1.61 THOUS (0.80-3.30 THOUS) Absolute Monocytes 1.49 THOUS H (0.30-1.00 THOUS) Absolute Neutrophils 20.59 THOUS H (1.90-7.00 THOUS) HCT 40.6 % (37.0-47.0 %) HGB 13.6 g/dl (12.0-16.0 g/dl) MCH 28.7 pg (27.0-32.0 pg) MCHC 33.5 g/dL (32.0-36.0 g/dL) MCV 85.7 fL (82.0-99.0 fL) MPV 10.9 fL (9.4-12.4 fL) Platelet Count 309 K/uL (150-400 K/uL) RBC 4.74 M/uL (4.00-5.20 M/uL) RDW 16.6 % H (11.5-14.5 %) WBC 23.9 K/uL H (4.8-10.8 K/uL) Basophils 0 % (0-2 %) Eosinophils 0 % (0-4 %) Immature Granulocytes 0.7 % (0.0-1.0 %) Lymphocytes 7 % L (20-46 %) Monocytes 6 % (4-11 %) Nucleated RBC Automated 0.3 /100 WBC (0 /100 WBC) Polychromasia Occasional A Differential Scanned Slide Neutrophils 86 % H (51-75 %) LAB--HEMATOLOGY from 05/16/2013 3:40 AMHCT 30.3 % L (37.0-47.0 %) HGB 9.9 g/dl L (12.0-16.0 g/dl) MCH 28.2 pg (27.0-32.0 pg) MCHC 32.7 g/dL (32.0-36.0 g/dL) MCV 86.3 fL (82.0-99.0 fL) MPV 10.8 fL (9.4-12.4 fL) Platelet Count 239 K/uL (150-400 K/uL) RBC 3.51 M/uL L (4.00-5.20 M/uL) RDW 16.8 % H (11.5-14.5 %) WBC 22.6 K/uL H (4.8-10.8 K/uL) LAB--HEMATOLOGY from 05/17/2013 5:58 AMHCT 28.3 % L (37.0-47.0 %) HGB 8.9 g/dl L (12.0-16.0 g/dl) MCH 27.9 pg (27.0-32.0 pg) MCHC 31.4 g/dL L (32.0-36.0 g/dL) MCV 88.7 fL (82.0-99.0 fL) MPV 10.7 fL (9.4-12.4 fL) Platelet Count 220 K/uL (150-400 K/uL) RBC 3.19 M/uL L (4.00-5.20 M/uL) RDW 17.4 % H (11.5-14.5 %) WBC 17.1 K/uL H (4.8-10.8 K/uL) LAB--MICROBIOLOGY from 05/16/2013 11:00 AMUrine Culture Source: Urine Collected: 05/16/13 11:00 Site: Clean Catch Received : 05/16/13 11:10 Order#: [id number] Urine Culture FINAL 05/17/13 07:11 F Mixed dominic indicative of skin contamination F: Performed at: [facility], [address] [facility], [place] FOR RESULTS: * - NEW RESULT - RESULT WAS MODIFIED AFTER FINAL STATUS SET
[2016-11-18 18:11] LABS: BASOPHILS # (AUTO) 0.1 T/MM3 (0-0.2); BASOPHILS % (AUTO) 0.6 % (0-2); EOSINOPHILS # (AUTO) 0.3 T/MM3 (0-0.5); EOSINOPHILS % (AUTO) 3.5 % (0-4); HCT - HEMATOCRIT 45.2 % (36-46); HGB - HEMOGLOBIN 14.6 GM/DL (12-16); IMMATURE GRANULOCYTE # (AUTO) 0.02 T/MM3 (0.00-0.03); IMMATURE GRANULOCYTE % (AUTO) 0.2 % (0.0-0.5); LYMPHOCYTES # (AUTO) 1.7 T/MM3 (1-4.8); LYMPHOCYTES % (AUTO) 20.3 % (23-45); MEAN CORPUSCULAR HGB 28.7 UUG (26-34); MEAN CORPUSCULAR HGB CONC(MCHC 32.3 GM/DL (31-37); MEAN PLATELET VOLUME 10.5 UM3 (9.4-12.4); MONOCYTES # (AUTO) 0.8 T/MM3 (0-0.8); MONOCYTES % (AUTO) 9.3 % (0-9.0); NEUTROPHILS #(AUTO)-ABSOLUTE 5.5 T/MM3 (1.8-7.7); NEUTROPHILS % (AUTO) 66.1 % (33-66); RED BLOOD COUNT 5.08 M/MM3 (4.00-5.20); WBC - WHITE BLOOD COUNT 8.3 T/MM3 (4.5-11.0)
[2016-11-18 18:12] LABS: INR 2.38 (0.76-1.04); PROTHROMBIN TIME 25.9 SEC (9.31-12.49)
[2016-11-18 18:15] LABS: ALBUMIN 4.3 G/DL (3.5-5.0); ALBUMIN/GLOBULIN RATIO 1.2 RATIO (1.1-2.2); ALKALINE PHOSPHATASE 96 U/L (38-126); ALT (SGPT) 33 U/L (9-52); ANION GAP 18 MEQ/L (5-15); AST (SGOT) 28 U/L (14-36); BUN/CREATININE RATIO 22 RATIO (6-26); CALCIUM 9.5 MG/DL (8.4-10.2); CHLORIDE 98 MEQ/L (98-107); CO2 - CARBON DIOXIDE 25 MEQ/L (22-30); CREATININE 0.9 MG/DL (0.7-1.2); GLOMERULAR FILTRATION RATE 63; GLUCOSE 280 MG/DL (65-110); POTASSIUM 3.9 MEQ/L (3.6-5); SODIUM 141 MEQ/L (134-144); TOTAL PROTEIN 7.8 G/DL (6.3-8.2)
--- NOTE | 2016-11-18 18:17 | ERPDOC ---
Departure Disposition Decision Date: Nov 18, 2016 Disposition Decision Time: 19:32 (HONEY MEDINA APRN) Disposition: 01 DISCHARGED HOME, SELF-CARE Impression Impression (HONEY MEDINA APRN) Impression: Primary Impression: Gastroenteritis Severity: Moderate (HONEY MEDINA APRN) Condition: Stable Seen By: Mid-level only (HONEY MEDINA APRN) Referrals: KENNETH HELMS DO (Family) Patient Instructions: Gastroenteritis (ED) Problems/Meds/Labs Reviewed?: Yes Medications reviewed and manag: Yes (HONEY MEDINA APRN) Additional Instructions: Take the Zofran as needed for nausea. Take small frequent sips of fluids at home to maintain your hydration. Follow up tomorrow with Dr Khan as scheduled. If any further issues/concerns then return to ER for reevaluation. Follow up care ordered?: Yes Mental Status: Alert (HONEY MEDINA APRN) Scripts Ondansetron (Zofran Odt) 4 Mg Tab.rapdis 4 MG PO Q8HR, #10 TAB 0 Refills Orally disintegrating tablet Prov: HONEY MEDINA APRN 11/18/16 HPI - Chest Pain General Chief Complaint: Cardiac Complaint Stated Complaint: AFIB WITH NAUSEA & VOMITING Time Seen by Provider: 17:51 Source: patient Exam Limitations: no limitations (HONEY MEDINA APRN) Time Seen by Provider: 17:52 (DECEMBERNACHO DO) HPI - Chest Pain Initial Comments She presents to ER today for evaluation of palpitations and fast HR. She has a history of atrial fibrillation and sees Dr Khan for this. She did have a cardioversion early in October and was taken off of her Dig and Amiodarone. She states that she feels like her heart is pounding and it is worse when she lays down. She has had nausea and vomiting for the last 4 days as well. She states that she vomited twice on the first day and none since but is nauseated. When her comes back to the room he states however that they ate lunch at [employer] today and she vomited in the parking lot after they ate. She did fall and hit her head 2 weeks ago she states at home but she has some bruising on her neck from the fall. She did see her PCP the next day in clinic and had an outpatient CT of the head that was negative. She does take Coumadin and her INR was 4. Upon review of old charts she had a head CT here at [facility] on 11/11 which is one week ago. I do think that his is more consistent with her injuries of a fall 1 week ago and not 2. Has been feeling fatigued and SOA with exertion. Occurred At: home Onset/Timing: Gradual Duration: 1 week Activities at Onset/Context: none Associated Symptoms: diaphoresis, dizziness, fast HR, nausea/vomiting, shortness of breath, weakness, DENIES: abdominal pain, back pain, edema, fatigue , fever/chills, headache, heartburn, irregular HR, rash, slow HR, swelling/lump in chest, syncope Chest Pain Radiation: no radiation Nitro Today/Relief: no nitro taken today Aspirin Treatment Today: unknown Hx of Similar Symptoms: No (HONEY MEDINA APRN) Allergies: Coded Allergies: Penicillins (Verified Allergy, Intermediate, HIVES, 10/14/16) REACTION PER H&P DATED 05-05-13 amoxicillin (Verified Allergy, Intermediate, hives, 10/14/16) codeine (Verified Allergy, Intermediate, HIVES, 10/14/16) AND NAUEA metformin (Verified Allergy, Intermediate, NAUSEA & VOMITING, 10/14/16) meperidine (Verified Allergy, Unknown, HIVES, 10/14/16) PER H&P DATED 05-05-13 morphine (Verified Allergy, Unknown, HEADACHES, 10/14/16) PER H&P DATED 05-05-13 Iodinated Contrast Media - Oral and (Verified Adverse Reaction, Intermediate, VOMITING, 10/14/16) erythromycin base (Verified Adverse Reaction, Intermediate, ABDOMINAL CRAMPS, 10/14/16) hydrocodone (Verified Adverse Reaction, Intermediate, ABDOMINAL CRAMPS, ) Uncoded Allergies: ANESTHETICS (Adverse Reaction, Mild, NAUSEA, 04/24/16) Past History Patient Surgical History CABG 1 vessel 1991 CABG 3 vessel 2011 (HONEY MEDINA CLOTH HAND) Past Medical History Metabolic: diabetes, hypercholesterolemia, hypertension, hypothyroidism Cardiac: A-fib, CAD, CHF, echocardiogram GI: GERD Integumentary: rashes Hematologic: DVT (NOLD,HONEY N CLOTH HAND) Surgical History General: gallbladder Cardiac: cardiac bypass, cardiac cath, cardiac stent, implantable defib, radio ablation, valve replacement Reproductive/: hysterectomy Joint: knee (NOLD,HONEY N CLOTH HAND) Family History Family PMH: FOUND: CAD, cancer, hypertension (NOLD,HONEY N CLOTH HAND) Vaccines Hx Influenza Vaccination: Yes (05/2016) Hx Pneumococcal Vaccination: No (NOLD,HONEY N CLOTH HAND) Social History Does patient use chewing tobac: No Second Hand Exposure: No Substance Use Type: does not use Alcohol Intake: none Marital Status: Sexuality: male partner Housing: house Household Members: spouse Service: No Current Occupational Status: unemployed Occupational Hazard: No Advance Directives: Yes Full Code (NOLD,HONEY N CLOTH HAND) Review of Systems Constitutional Constitutional: appetite decrease, fatigue, weakness, DENIES: chills, dizziness , fever (NOLD,HONEY N CLOTH HAND) Eyes Vision: DENIES: blurring, double vision (NOLD,HONEY N CLOTH HAND) ENMT Ears: DENIES: drainage, pain Sinuses: DENIES: congestion, rhinorrhea Mouth/Throat: DENIES: painful swallowing, scratchy throat, sore throat (NOLD, HONEY N CLOTH HAND) Cardiovascular Cardiac: chest pain, dyspnea on exertion, DENIES: orthopnea Rhythm/Rate: palpitations, DENIES: irregular beat Vascular: DENIES: pedal edema, unilateral swelling (NOLD,HONEY N CLOTH HAND) Pulmonary Respiratory: DENIES: cough, dyspnea, sputum, tachypnea (NOLD,HONEY N CLOTH HAND) GI Upper Abdomen: nausea, vomiting, DENIES: pain Lower Abdomen: DENIES: constipation, diarrhea, pain (NOLD,HONEY N CLOTH HAND) Integumentary Skin: DENIES: rash (NOLD,HONEY N CLOTH HAND) Neurological General: weakness, DENIES: headache, numbness, tingling (NOLD,HONEY N CLOTH HAND) Physical Exam General General Nourishment: well nourished, well developed, appears stated age, no acute distress, adult, obese General Body Habitus: well groomed (NOLD,HONEY N CLOTH HAND) Vitals and Pain First Documented Vital Signs Date Time Temp Pulse Resp B/P Pulse Ox O2 Delivery O2 Flow Rate FiO2 4/3/17 17:42 97.8 99 18 112/71 95 Room Air (EB M DO) Vitals and Pain Weight: Kilograms: Height (feet): 5 Height (inches): 6.00 Triage Pain Scale: (HONEY MEDINA APRN) RN VS reviewed by Provider: Yes (HONEY MEDINA APRN) Normal Exams: Eyes: Pupils are PERRLA w/ EOMI, No scleral icterus, irritation, or foreign bodies noted ENMT: No facial trauma, nasal exudates, pharyngeal erythema, or exudates are noted Neck: Full range of motion, without adenopathy, JVD, bruits or thyromegaly Chest/Resp: Clear all [place], with good airflow, and symmetry bilaterally CV: Regular rate and rhythm, without murmur or gallop, Pulses 2+ all extremities, capillary refill, <2 seconds all ext., no pedal edema noted Abdomen: Bowel sounds positive, non-distended, no hepatosplenomegaly, masses or bruits noted Lymphatic: No lymphadenopathy, or lymphedema noted Neurologic: Patient is alert, and oriented, cranial nerves, motor/sensory/ cerebellar, exams w/o gross deficits, to observation Psychiatric: Patient exhibits, appropriate attention, emotion and affect (HONEY MEDINA APRN) Abdomen Inspection: NOT FOUND: distention Palpation: FOUND: soft, tender (TTP in the bilateral and mid lower abdomen, mildly), NOT FOUND: involuntary guarding, rebound, voluntary guarding (HONEY MEDINA APRN) Integumentary (brief) Integumentary Brief: FOUND: other (Noted bruising on the right lateral neck) ( HONEY MEDINA APRN) Differential Diagnoses Considering: Acute UT, Anxiety/Panic, Angina, Bradycardia, Costochondritis, Pulmonary Embolus, Other (atrial fibrillation, ICH) (HONEY MEDINA APRN) Progress Results/Orders Orders Procedure Category Date Status Time EKG EKG 11/18/16 Taken Chest, Pa & Lateral RAD 11/18/16 Taken Cbc W/Auto LAB 11/18/16 Complete Diff-Reflex Manual Cmp - Comprehensive LAB 11/18/16 Complete Metabolic Iv Lock (Ed Only) EDM 11/18/16 Transmitted 18:04 Troponin I W LAB 11/18/16 Complete Hemolysis Index INR LAB 11/18/[address] Head W/O Contrast CT 11/18/16 Taken Normal Saline (Normal PHA 11/18/16 Complete Saline Iv) 18:30 Ondansetron Inj PHA 11/18/16 Complete (Zofran) 18:30 Ua, Dip Wreflex LAB 11/18/16 Complete Microsc & Stoner Hand 18:39 D-Dimer LAB 11/18/16 Complete () Lab Results Laboratory Tests Test 11/18/16 18:00 11/18/16 18:51 White Blood Count 8.3T/MM3 Red Blood Count 5.08M/MM3 Hemoglobin 14.6GM/DL Hematocrit 45.2% Mean Corpuscular Volume 89.0UM3 Mean Corpuscular Hemoglobin 28.7UUG Mean Corpuscular Hemoglobin Concent 32.3GM/DL RDW Standard Deviation 53.4FL Platelet Count 286T/MM3 Mean Platelet Volume 10.5UM3 Immature Granulocyte % (Auto) 0.2% Neutrophils (%) (Auto) 66.1% Lymphocytes (%) (Auto) 20.3% Monocytes (%) (Auto) 9.3% Eosinophils (%) (Auto) 3.5% Basophils (%) (Auto) 0.6% Absolute Immature Granulocyte (auto 0.02T/MM3 Absolute Neutrophils (auto) 5.5T/MM3 Absolute Lymphocytes (auto) 1.7T/MM3 Absolute Monocytes (auto) 0.8T/MM3 Absolute Eosinophils (auto) 0.3T/MM3 Absolute Basophils (auto) 0.1T/MM3 Prothromb Time International Ratio 2.38 D-Dimer < 150NG/ML Turbidity < 20 Sodium Level 141MEQ/L Potassium Level 3.9MEQ/L Chloride Level 98MEQ/L Carbon Dioxide Level 25MEQ/L Anion Gap 18MEQ/L Blood Urea Nitrogen 20.0MG/DL Creatinine 0.9MG/DL Glomerular Filtration Rate Calc 63 BUN/Creatinine Ratio 22RATIO Glucose Level 280MG/DL Calculated Osmolality 284MOSM/KG Calcium Level 9.5MG/DL Total Bilirubin 0.90MG/DL Icterus Index < 2 Aspartate Amino Transf (AST/SGOT) 28U/L Alanine Aminotransferase (ALT/SGPT) 33U/L Alkaline Phosphatase 96U/L Troponin I < 0.012ng/ml Total Protein 7.8G/DL Albumin 4.3G/DL Globulin 3.5G/DL Albumin/Globulin Ratio 1.2RATIO Chemistry Specimen Hemolysis < 15 Urine Collection Type Cleancatch-midstream Urine Color Yellow Urine Turbidity Clear Urine pH 5.5 Urine Specific [place] 1.015 Urine Protein Negative Urine Glucose (UA) Trace Urine Ketones Negative Urine Blood Negative Urine Nitrite Negative Urine Bilirubin Negative Urine Urobilinogen 0.2EU/DL Urine Leukocyte Esterase Negative Urinalysis Comment Microscopic not ind. () Medications Current ED Medications Sodium Chloride (Normal Saline IV) 1,000 ml @ 500 mls/hr Q2H ONCE IV Last administered on 11/18/16 18:37; Start 11/18/16 at 18:30; Stop 11/18/16 at 20:29; Status DC Ondansetron HCl (Zofran) 4 mg O ONCE IV Last administered on 11/18/16 18:37; Start 11/18/16 at 18:30; Stop 11/18/16 at 18:31; Status DC () Progress Progress CBC, CMP, troponin, and d dimer today were all negative. UA was clear. Chest xray was negative. EKG does show ventricular paced rhythm which is consistent with previous EKGs. CT of head is negative for ICH. Vitals are stable. She does report that she feels better overall. Is not feeling as weak and is no longer nauseated. Will go ahead and let her go home today. Have her follow up with her primary care provider for reevaluation. She does have an appointment with Dr Khan scheduled fo r tomorrow at 1140. (HONEY MEDINA APRN) Xray Xray : Reason for Exam: SOA Xray: CXR PA/Lat Interpretation: Normal (HONEY MEDINA APRN) CT CT : Reason for Exam: vomiting, post head injury CT: Head no contrast Interpretation: Normal (HONEY MEDINA APRN) HONEY MEDINA APRN Nov 18, 2016 18:17 [place],[facility] Nov 18, 2016 22:54
--- OUTSIDE RECORDS SUMMARY | 2016-11-18 18:17 | XMS REPORT | Continuity of Care Document ---
Author Author [facility] Organization [facility] Address Unknown Phone Unavailable Allergies Active [...] PLATELET COUNT 248 k/cumm 150-450 METABOLIC PANEL, [facility] - 10/16/16 06:05 POTASSIUM 3.6 mmol/L [...] 10/16/16 09:42 ACT PLUS (POC) 166 sec [place] <160 ACT PLUS (POC) - 10/16/16 10:27 ACT PLUS (POC) 263 sec [place] <160 ACT PLUS (POC) - 10/16/16 10:52 ACT PLUS (POC) 272 sec [place] <160 ACT PLUS (POC) - 10/16/16 11:15 ACT PLUS (POC) 403 sec [place] <160 ACT PLUS (POC) - 10/16/16 11:42 ACT PLUS (POC) 347 sec [place] <160 ACT PLUS (POC) - 10/16/16 12:07 ACT PLUS (POC) 395 sec [place] <160 ACT PLUS (POC) - 10/16/16 12:36 ACT PLUS (POC) 401 sec [place] <160 GLUCOSE (POC) - 10/16/16 13:17 GLUCOSE (POC) 193 mg/dL 70-99 ACT PLUS (POC) - 10/16/16 13:19 ACT PLUS (POC) 366 sec [place] <160 GLUCOSE (POC) - 10/16/16 20:31 GLUCOSE [...] Status Pt. Type Provider Facility Loc./Unit Complaint [id number] 10/25/2013 08:28:00 10/25/2013 23 :59:59 CLS Outpatient [id number] 07/19/2013 13:40:00 07/19/2013 23 :59:59 CLS Outpatient
--- OUTSIDE RECORDS SUMMARY | 2016-11-18 18:18 | XMS REPORT ---
Author Author [place], [facility] - Organization Unknown Address Unknown Phone Unavailable [...] the responsibility of the patient or patient technical service representative to confirm the list of medications with [...] mg Tablet, Ordered By: Khushi Ruiz Directions: 0.5 tablet oral every Friday [...] Clean Catch Received : 05/16/13 11:10 Order#: [id number] Urine Culture FINAL 05/17/13 07:11 F Mixed dominic indicative of skin contamination F: Performed at: [facility], [address] [facility], [place] FOR RESULTS: * - NEW RESULT - RESULT WAS MODIFIED AFTER FINAL STATUS SET
[2016-11-18] MEDS ORDERED: ONDANSETRON 4mg/2ml INJECTION IV ONE (18:30)
[2016-11-18] MEDS ORDERED: NORMAL SALINE 1,000 ML IV ONE (18:30)
[2016-11-18 18:56] LABS: BLOOD, URINE NEGATIVE (NEGATIVE); COLOR,URINE YELLOW (YELLOW); LEUKOCYTE ESTERASE ,URINE NEGATIVE (NEGATIVE); NITRITE,URINE NEGATIVE (NEGATIVE); UROBILINOGEN,URINE 0.2 EU/DL (NORMAL)
[2016-11-18] MEDS ORDERED: ONDA4TAB7 PO (19:33)
[2016-11-18 19:55] VITALS: BP 109/72; PULSE 97; RESP 22; TEMP 97.8; O2SAT 94
--- NOTE | 2016-11-19 08:01 | DI ---
Indication: ITS.REASON: lapsed head injury PROCEDURE: CT HEAD W/O CONTRAST: Encounter: Initial Comparison: November 11, 2016 Technique: Axial CT images through the head were performed without contrast. Iterative Reconstruction dose reducing technique was utilized. FINDINGS: Mild atrophy. The ventricles are of normal size, shape, and configuration for the patient's age. There is no evidence of acute intracranial hemorrhage, midline displacement, or mass effect. There are scattered areas of low attenuation in the white matter which most likely represent changes of chronic microvascular ischemia. The CT attenuation of the brain parenchyma is otherwise normal within the cerebellum, brain stem, and cerebral hemispheres. The tympanic cavities and mastoid air cells are free of appreciable disease. There are no definite fractures of the skull base, calvarium, or visualized portion of the midface. Right parietal scalp swelling. IMPRESSION: No CT evidence of acute traumatic intracranial injury. There is a preliminary report by [facility]. .
--- NOTE | 2016-11-19 08:02 | DI ---
INDICATION: ITS.REASON: chest pain, dyspnea PROCEDURE: CHEST 2-VIEWS UPRIGHT (PA \T\ LAT) Encounter: Initial Comparison: October 14, 2016 Findings: The lungs are stable in appearance without new focal airspace consolidation. There is no pleural effusion or pneumothorax. The heart size, pulmonary vascularity and mediastinal contours are unchanged. Left pacemaker and cardiac valve replacement. Prior CABG. IMPRESSION: Stable appearance of the chest without acute cardiopulmonary disease. .
== END 2016-11-18 19:55 | disposition home or self-care (01) ==
LOC: ED 17:40
DX: I48.91 Unspecified atrial fibrillation (principal); R53.83 Other fatigue; K52.9 Noninfective gastroenteritis and colitis, unspecified; Z79.01 Long term (current) use of anticoagulants
CPT/HCPCS: 70450; 71020; 80053; 81003; 84484; 85025; 85379; 85610; 93005; 96361; 96374; 99284; J2405; J7030; 36000

== ENCOUNTER 2016-11-20 18:55 | Emergency (ER) | payer BC ==
[~2016-11-20] VITALS: Ht 167.6 cm; Wt 110.0 kg
[2016-11-20 18:55] VITALS: Ht 167.6 cm; Wt 110.0 kg
[~2016-11-20 18:55] MED LIST changes: -AMIO200T2 PO; -DIGO125T17 PO; +ONDA4TAB7 PO
--- OUTSIDE RECORDS SUMMARY | 2016-11-20 19:00 | XMS REPORT | Continuity of Care Document ---
Author Author [facility] Organization [facility] Address Unknown Phone Unavailable Support Name Relationship Address Phone DECEMBERNACHO DO Caregiver [address] [place] [address] Unavailable KENNETH HELMS DO Caregiver [address] [place] [address] Unavailable RUDY FIGUEREDO Next Of Kin [address], [place] [id number] Insurance Providers Guarantor Marilyn Figueredo Address [address] [place] [address] Email DENIED 16 Payer [facility] Policy Number [id number] Subscriber's Name LoveShauntay Relationship 18 Self Group Number [id number] Advance Directives Directive Response Recorded Date/Time Advanced Directives Type None 11/18/16 5:42pm Chief Complaint and Reason for Visit Chief Complaint Cardiac Complaint Reason for Visit Gastroenteritis Problems Active Problems Medical Problem Onset Date Status 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 [...] Hypertension Unknown Chronic Ischemic cardiomyopathy Unknown Chronic custodial (current) use of anticoagulants Unknown Chronic Mixed hyperlipidemia Unknown Chronic Nonrheumatic mitral valve insufficiency Unknown Chronic Pain and swelling of left lower leg Unknown Acute Presence of automatic implantable cardioverter-defibrillator Unknown Chronic Presence of prosthetic heart valve Unknown Chronic Type 2 diabetes mellitus without complications Unknown Chronic Vomiting Unknown Acute Past Problems Medical Problem Onset Date Dyspnea Unknown Gastroenteritis Unknown Hypotension Unknown Tachycardia Unknown Tachycardia Unknown Medications Current Home Medications Medication Dose Units Route Directions Days Qty Instructions Start Date Alendronate Sodium (Fosamax) 70 Mg Tablet 70 Mg Oral Every Friday At 12: 00PM 04/23/16 Bumetanide (Bumex) 2 Mg Tablet 2 Mg Oral Twice A Day 06/16/12 Cholecalciferol (Vitamin D3) (Vitamin D3) 2,000 Unit Capsule 2,000 Unit Oral Daily 04/23/16 Clonazepam 0.5 Mg Tablet 0.5 Mg Oral Bedtime as needed for Prn Orders 05/12/13 Glimepiride 4 Mg Tablet 4 Mg Oral Daily 09/02/16 Levothyroxine Sodium 150 Mcg Tablet 150 Mcg Oral Before Breakfast 05/11/13 Liraglutide (Victoza 2-Marc) 18 Mg/Syringe Inj 1.2 Mg Sub-Q 1500 09/02/16 Losartan Potassium 25 Mg Tablet 25 Mg Oral Daily 04/24/16 Metoprolol Tartrate 25 Mg Tablet 25 Mg Oral Twice A Day 09/02/16 Ondansetron (Zofran Odt) 4 Mg Tab.rapdis 4 Mg Oral Q8h @ 0100/0900/1700 10 Tablet Orally disintegrating tablet 11/18/16 Oxycodone Hcl/Acetaminophen (Percocet 7.5/325 Mg Tablet) 1 [...] Day 05/20/13 Discontinued Omeprazole (Prilosec) 40 Mg Capsule., 40 Mg Oral Daily 01/23/10 Discontinued Omeprazole Magnesium (Prilosec Otc) 20 Mg Tablet., 20 Mg Oral Daily Discontinued Oxycodone Hcl/Acetaminophen [...] Problem Response Recorded Date/Time Onset Date Status Chewing Tobacco Status No 05/12/2013 1:02pm Not Applicable Not Applicable Hx Substance Use No 11/18/2016 5:45pm Not Applicable Not Applicable Hx Alcohol Use No 11/18/2016 5:45pm Not Applicable Not Applicable Has the pt used tobacco in the last 12 months No 10/14/2016 11:07pm Not Applicable Not Applicable Query Response Start Date Stop Date Smoking Status Former smoker Hospital Discharge Instructions No hospital discharge instructions. Plan of Care Discharge Date 11/18/16 7:55pm Disposition 01 DISCHARGED HOME, SELF-CARE Condition at Discharge Stable Instructions/Education Provided Gastroenteritis (ED) Prescriptions See Medication Section Referrals KENNETH HELMS DO Address: [address] [place] [address] [place] [address] Additional Instructions/Education Take the Zofran as needed for nausea. Take small frequent sips of fluids at home to maintain your hydration. Follow up tomorrow with Dr Ro as scheduled. If any further issues/concerns then return to ER for reevaluation. Care Plan and Goals Physician Care Plan Problem:Nausea/vomiting Goal: Follow up with primary care provider Instructions: Take medications and follow care plan as discussed/written Functional Status No functional status results. Allergies, Adverse Reactions, Alerts Allergen Type Severity [...] Y 05/201610/14/16 11:07pm DTaP Vaccine History 2016 11/18/16 5:45pm Influenza Vaccine Hx 05/201611/18/16 5:45pm Vital Signs Acute Vital Signs Vital Response Date/Time Temperature (Fahrenheit) 97.8 deg F (96.8 - 99.1) 11/18/2016 7:55pm Temperature (Calculated Celsius) 36.25226 degrees C (36.0 - 37.3) 11/18/2016 7:55pm Pulse Rate (adult) 97 bpm (60 - 100) 11/18/2016 7:55pm Respiratory Rate 22 breaths/min (10 - 20) 11/18/2016 7:55pm O2 Sat by Pulse Oximetry 94 % (90 - 100) 11/18/2016 7:55pm Oxygen Delivery Method Nasal Cannula 09/02/2016 10:37pm Oxygen Delivery Method Room Air 10/15/2016 11:40am Oxygen Flow Rate 2.00 L/min 10/15/2016 11:39am Blood Pressure 109/72 mm Hg 11/18/2016 7:55pm Blood Pressure Source Automatic Cuff 10/15/2016 11:39am Height (Feet) 5 feet 11/18/2016 5:42pm Height (Inches) 2.00 inches 11/18/2016 5:42pm Weight (Kilograms) 109.100 kg 11/18/2016 5:42pm Body Mass Index (BMI) 43.0 11/18/2016 5:42pm Results Laboratory Results Test Name Result Units Flags Reference Collection Date/Time Result Date/ Time Comments Unconjugated Bilirubin 0.60 MG/DL 0.00-1.10 09/03/2016 8:48am [...] (PCR) NEGATIVE NEGATIVE 09/02/2016 5:13pm 09/02 6:47pm LV-Rwq-I-Type Natriuretic Peptide 1910 PG/ML H 0-175 10/14/2016 [...] NG/ML L 0.8-2.0 10/14/2016 3:55pm 10/14/2016 4:31pm Glucometer 227 mg/dL H 65-110 10/15/2016 11:13am 10/15/2016 5:05pm White Blood Count 8.3 T/MM3 4.5-11.0 11/18/2016 6:00pm 11/18/2016 6: 11pm Red Blood Count 5.08 M/MM3 4.00-5.20 11/18/2016 6:00pm 11/18/2016 6: 11pm Hemoglobin 14.6 GM/DL 12-16 11/18/2016 6:00pm 11/18/2016 6:11pm Hematocrit 45.2 % 36-46 11/18/2016 6:00pm 11/18/2016 6:11pm Mean Corpuscular Volume 89.0 UM3 80-100 11/18/2016 6:00pm 11/18/2016 6: 11pm Mean Corpuscular Hemoglobin 28.7 UUG 26-34 11/18/2016 6:00pm 2016 6:11pm Mean Corpuscular Hemoglobin Concent 32.3 GM/DL 31-37 11/18/2016 6:00pm 11/18/2016 6:11pm RDW Standard Deviation 53.4 FL H 36.9-50.2 11/18/2016 6:00pm 11/18/2016 6:11pm Platelet Count 286 T/MM3 130-400 11/18/2016 6:00pm 11/18/2016 6:11pm Mean Platelet Volume 10.5 UM3 9.4-12.4 11/18/2016 6:00pm 11/18/2016 6: 11pm Neutrophils (%) (Auto) 66.1 % H 33-66 11/18/2016 6:00pm 11/18/2016 6: 11pm Lymphocytes (%) (Auto) 20.3 % L 23-45 11/18/2016 6:00pm 11/18/2016 6: 11pm Monocytes (%) (Auto) 9.3 % H 0-9.0 11/18/2016 6:00pm 11/18/2016 6:11pm Eosinophils (%) (Auto) 3.5 % 0-4 11/18/2016 6:00pm 11/18/2016 6:11pm Basophils (%) (Auto) 0.6 % 0-2 11/18/2016 6:00pm 11/18/2016 6:11pm Immature Granulocyte % (Auto) 0.2 % 0.0-0.5 11/18/2016 6:00pm 2016 6:11pm Absolute Neutrophils (auto) 5.5 T/MM3 1.8-7.7 11/18/2016 6:00pm 2016 6:11pm Absolute Lymphocytes (auto) 1.7 T/MM3 1-4.8 11/18/2016 6:00pm 2016 6:11pm Absolute Monocytes (auto) 0.8 T/MM3 0-0.8 11/18/2016 6:00pm 11/18/2016 6:11pm Absolute Eosinophils (auto) 0.3 T/MM3 0-0.5 11/18/2016 6:00pm 2016 6:11pm Absolute Basophils (auto) 0.1 T/MM3 0-0.2 11/18/2016 6:00pm 11/18/2016 6:11pm Absolute Immature Granulocyte (auto 0.02 T/MM3 0.00-0.03 11/18/2016 6: 00pm 11/18/2016 6:11pm Prothromb Time International Ratio 2.38 H 0.76-1.04 11/18/2016 6:00pm 11/18/2016 6:12pm THERAPUTIC RANGE=2.00-3.00 FOR ANTI-THROMBOSIS THERAPUTIC RANGE=2.50-3.50 FOR IMPLANTED VALVE D-Dimer < 150 NG/ML 0-230 11/18/2016 6:00pm 11/18/2016 7:18pm <230 NG/ ML D-DU=PRESUMPTIVE NEGATIVE FOR PE OR DVT >230 NG/ML D-DU=ADDITIONAL EVAL FOR PE OR DVT RECOMMENDED Icterus Index < 2 0-7 11/18/2016 6:00pm 11/18/2016 6:15pm Chemistry Specimen Hemolysis < 15 0-25 11/18/2016 6:00pm 11/18/2016 6 :15pm 0-25: Specimen Exhibited No Hemolysis. Turbidity < 20 0-20 11/18/2016 6:00pm 11/18/2016 6:15pm Sodium Level 141 MEQ/L 134-144 11/18/2016 6:00pm 11/18/2016 6:15pm Potassium Level 3.9 MEQ/L 3.6-5 11/18/2016 6:00pm 11/18/2016 6:15pm Chloride Level 98 MEQ/L 98-107 11/18/2016 6:00pm 11/18/2016 6:15pm Carbon Dioxide Level 25 MEQ/L 22-30 11/18/2016 6:00pm 11/18/2016 6: 15pm Anion Gap 18 MEQ/L H 5-15 11/18/2016 6:00pm 11/18/2016 6:15pm Blood Urea Nitrogen 20.0 MG/DL H 7-17 11/18/2016 6:00pm 11/18/2016 6: 15pm Creatinine 0.9 MG/DL 0.7-1.2 11/18/2016 6:00pm 11/18/2016 6:15pm BUN/Creatinine Ratio 22 RATIO 6-26 11/18/2016 6:00pm 11/18/2016 6:15pm Glomerular Filtration Rate Calc 63 11/18/2016 6:00pm 11/18/2016 6: 15pm Glucose Level 280 MG/DL H 65-110 11/18/2016 6:00pm 11/18/2016 6:15pm Calculated Osmolality 284 MOSM/KG H 261-280 11/18/2016 6:00pm 2016 6:15pm Calcium Level 9.5 MG/DL 8.4-10.2 11/18/2016 6:00pm 11/18/2016 6:15pm Total Bilirubin 0.90 MG/DL 0.20-1.30 11/18/2016 6:00pm 11/18/2016 6: 15pm Alkaline Phosphatase 96 U/L 38-126 11/18/2016 6:00pm 11/18/2016 6:15pm Total Protein 7.8 G/DL 6.3-8.2 11/18/2016 6:00pm 11/18/2016 6:15pm Albumin 4.3 G/DL 3.5-5.0 11/18/2016 6:00pm 11/18/2016 6:15pm Globulin 3.5 G/DL 2.4-3.6 11/18/2016 6:00pm 11/18/2016 6:15pm Albumin/Globulin Ratio 1.2 RATIO 1.1-2.2 11/18/2016 6:00pm 11/18/2016 6 :15pm Aspartate Amino Transf (AST/SGOT) 28 U/L 14-36 11/18/2016 6:00pm 2016 6:15pm Alanine Aminotransferase (ALT/SGPT) 33 U/L 9-52 11/18/2016 6:00pm 11/18 6:15pm Troponin I < 0.012 ng/ml 0-0.12 11/18/2016 6:00pm 11/18/2016 6:27pm Troponin values with a difference of 55% increase from orginal troponin value represent a true biological DELTA value. (%increase Calc=Orginal Troponin value, divided by subsequent Troponin value, multiplied by 100) Urine Collection Type CLEANCATCH-MIDSTREAM 11/18/2016 6:51pm 2016 6:56pm Urine Color YELLOW YELLOW 11/18/2016 6:51pm 11/18/2016 6:56pm Urine Turbidity CLEAR CLEAR 11/18/2016 6:51pm 11/18/2016 6:56pm Urine Specific [place] 1.015 1.015-1.025 11/18/2016 6:51pm 2016 6:56pm Urine pH 5.5 5.0-8.0 11/18/2016 6:51pm 11/18/2016 6:56pm Urine Leukocyte Esterase NEGATIVE NEGATIVE 11/18/2016 6:51pm 2016 6:56pm Urine Nitrite NEGATIVE NEGATIVE 11/18/2016 6:51pm 11/18/2016 6:56pm Urine Protein NEGATIVE NEGATIVE 11/18/2016 6:51pm 11/18/2016 6:56pm Urine Glucose (UA) TRACE A NEGATIVE 11/18/2016 6:51pm 11/18/2016 6: 56pm Urine Ketones NEGATIVE NEGATIVE 11/18/2016 6:51pm 11/18/2016 6:56pm Urine Urobilinogen 0.2 EU/DL NORMAL 11/18/2016 6:51pm 11/18/2016 6: 56pm Urine Bilirubin NEGATIVE NEGATIVE 11/18/2016 6:51pm 11/18/2016 6: 56pm Urine Blood NEGATIVE NEGATIVE 11/18/2016 6:51pm 11/18/2016 6:56pm Urinalysis Comment MICROSCOPIC NOT IND. 11/18/2016 6:51pm 2016 6:56pm Procedures Procedure Status Date Provider(s) Routine venipuncture Completed 09/02/16 Routine venipuncture Completed [...] Completed 09/02/16 Emergency dept visit Completed 09/02/16 259242"INJECTION, FUROSEMIDE, UP TO 20 MG" Completed 09/02/16 [id number]"INFUSION, NORMAL SALINE SOLUTION , 1000 CC" Completed 09/02/16 Breathing capacity test Completed 10/08/16 Pulm funct tst plethysmograp Completed 10/08/16 Co/membane diffuse capacity Completed 10/08/16 Routine venipuncture Completed 10/14/16 Chest x-ray 2vw frontal&latl Completed 10/14/16 Comprehen metabolic panel Completed 10/14/16 Assay of digoxin total Completed 10/14/16 Urinalysis auto w/o scope Completed 10/14/16 Reagent strip/blood glucose Completed 10/14/16 Reagent strip/blood glucose Completed 10/14/16 Reagent strip/blood glucose Completed 10/14/16 Assay of lactic acid Completed 10/14/16 Assay of natriuretic peptide Completed 10/14/16 Procalcitonin (pct) Completed 10/14/16 Assay of troponin quant Completed 10/14/16 Complete cbc w/auto diff wbc Completed 10/14/16 Prothrombin time Completed 10/14/16 Electrocardiogram tracing Completed 10/14/16 Hydrate iv infusion add-on Completed 10/14/16 Hydrate iv infusion add-on Completed 10/14/16 Ther/proph/diag inj iv push Completed 10/14/16 Tx/pro/dx inj new drug addon Completed 10/14/16 Initial observation care Completed 10/14/16 Initial observation care Completed 10/14/16 Initial observation care Completed 10/14/16 Initial observation care Completed 10/14/16 Emergency dept visit Completed 10/14/16 [id number]"INJECTION, DIGOXIN, UP TO 0.5 MG" Completed 10/14/16 [id number]"INFUSION, NORMAL SALINE SOLUTION , 1000 CC" Completed 10/14/16 [id number]"INFUSION, NORMAL SALINE SOLUTION , 1000 CC" Completed 10/14/16 Encounters Encounter Location Arrival/Admit Date Discharge/Depart Date Attending Provider Departed Emergency Room [facility] 11/18/16 5:40pm 11/18/16 7: 55pm NACHO ROBBINS DO Registered [facility] 11/11/16 1:07pm KENNETH HELMS DO Discharged Inpatient (obs) [facility] 10/14/16 7:50pm 10/15/16 4: 20pm EDMUND RO MD Registered [facility] 10/08/16 12:23pm EDMUND RO MD Discharged Inpatient (obs) [facility] 09/02/16 4:10pm 09/03/16 1: 15pm EDMUND RO MD Recent Diagnosis
--- OUTSIDE RECORDS SUMMARY | 2016-11-20 19:01 | XMS REPORT | Continuity of Care Document ---
Author Author [facility] Organization [facility] Address Unknown Phone Unavailable Allergies Active [...] PLATELET COUNT 248 k/cumm 150-450 METABOLIC PANEL, [facility] - 10/16/16 06:05 POTASSIUM 3.6 mmol/L 3.5-5.3 [...] 10/16/16 09:42 ACT PLUS (POC) 166 sec [place] <160 ACT PLUS (POC) - 10/16/16 10:27 ACT PLUS (POC) 263 sec [place] <160 ACT PLUS (POC) - 10/16/16 10:52 ACT PLUS (POC) 272 sec [place] <160 ACT PLUS (POC) - 10/16/16 11:15 ACT PLUS (POC) 403 sec [place] <160 ACT PLUS (POC) - 10/16/16 11:42 ACT PLUS (POC) 347 sec [place] <160 ACT PLUS (POC) - 10/16/16 12:07 ACT PLUS (POC) 395 sec [place] <160 ACT PLUS (POC) - 10/16/16 12:36 ACT PLUS (POC) 401 sec [place] <160 GLUCOSE (POC) - 10/16/16 13:17 GLUCOSE (POC) 193 mg/dL 70-99 ACT PLUS (POC) - 10/16/16 13:19 ACT PLUS (POC) 366 sec [place] <160 GLUCOSE (POC) - 10/16/16 20:31 GLUCOSE [...] Status Pt. Type Provider Facility Loc./Unit Complaint [id number] 10/25/2013 08:28:00 10/25/2013 23 :59:59 CLS Outpatient [id number] 07/19/2013 13:40:00 07/19/2013 23 :59:59 CLS Outpatient
--- OUTSIDE RECORDS SUMMARY | 2016-11-20 19:02 | XMS REPORT ---
Author Author [facility], [facility] - Organization Unknown Address Unknown Phone Unavailable [...] the responsibility of the patient or patient apparel trimmings sales representative to confirm the list of medications [...] Clean Catch Received : 05/16/13 11:10 Order#: [id number] Urine Culture FINAL 05/17/13 07:11 F Mixed dominic indicative of skin contamination F: Performed at: [facility], [address] [facility], [place] FOR RESULTS: * - NEW RESULT - RESULT WAS MODIFIED AFTER FINAL STATUS SET
--- NOTE | 2016-11-20 19:11 | ERPDOC ---
Departure Disposition Decision Date: Nov 20, 2016 Disposition Decision Time: 22:39 Disposition: 01 DISCHARGED HOME, SELF-CARE Impression Impression Impression: Primary Impression: Viral gastroenteritis Additional Impression: Mild dehydration Severity: Moderate Condition: Stable Seen By: Physician only Referrals: KENNETH HELMS DO (Family) Patient Instructions: Abdominal Pain (ED) Problems/Meds/Labs Reviewed?: Yes Medications reviewed and manag: Yes Additional Instructions: Gatorade sips frequently for hydration. Follow-up with your primary care provider tomorrow. Please take your nausea medication as prescribed. Follow up care ordered?: Yes HPI - Abdominal Pain General Chief Complaint: Abdominal Pain Stated Complaint: ABD PAIN Time Seen by Provider: 19:08 HPI - Abdominal Pain Initial Comments 66-year-old female brought in by EMS with abdominal pain. Patient has had abdominal pain for a couple of days, has an appointment with Dr. Helms for tomorrow, but feels like she cannot wait. She describes her pain currently is 10 out of 10, but states it is been worse than this in the last few days. When we tried to commit her to scale of 1-10, she stated that she might as well call it a 10. No fever, no chills. Abdominal pain is more epigastric. Denies shortness of breath. She received [address] of f[address] on the way in, due to the severity of her pain. She has had no diarrhea, or vomiting. Allergies: Coded Allergies: Penicillins (Verified Allergy, Intermediate, HIVES, 11/20/16) REACTION PER H&P DATED 05-05-13 amoxicillin (Verified Allergy, Intermediate, hives, 11/20/16) codeine (Verified Allergy, Intermediate, HIVES, 11/20/16) AND NAUEA metformin (Verified Allergy, Intermediate, NAUSEA & VOMITING, 11/20/16) meperidine (Verified Allergy, Unknown, HIVES, 11/20/16) PER H&P DATED 05-05-13 morphine (Verified Allergy, Unknown, HEADACHES, 11/20/16) PER H&P DATED 05-05-13 Iodinated Contrast Media - Oral and (Verified Adverse Reaction, Intermediate, VOMITING, 11/20/16) erythromycin base (Verified Adverse Reaction, Intermediate, ABDOMINAL CRAMPS, 11/20/16) hydrocodone (Verified Adverse Reaction, Intermediate, ABDOMINAL CRAMPS, 11/20/16) Uncoded Allergies: ANESTHETICS (Adverse Reaction, Mild, NAUSEA, 04/24/16) Past History Patient Surgical History CABG 1 vessel 1991 CABG 3 vessel 2011 Past Medical History Metabolic: diabetes, hypercholesterolemia, hypertension, hypothyroidism Cardiac: A-fib, CAD, CHF, echocardiogram GI: GERD Integumentary: rashes Hematologic: DVT Surgical History General: gallbladder Cardiac: cardiac bypass, cardiac cath, cardiac stent, implantable defib, radio ablation, valve replacement Reproductive/: hysterectomy Joint: knee Family History Family PMH: FOUND: CAD, cancer, hypertension Vaccines Hx Influenza Vaccination: Yes (05/2016) Hx Pneumococcal Vaccination: No Social History Smoking Status: Former smoker Does patient use chewing tobac: No Second Hand Exposure: No Substance Use Type: does not use Alcohol Intake: none Marital Status: Sexuality: male partner Housing: house Household Members: spouse Service: No Current Occupational Status: unemployed Occupational Hazard: No Advance Directives: Yes Full Code Record Review Pertinent history updated: Yes Review of Systems GI Upper Abdomen: see HPI Lower Abdomen: see HPI Musculoskeletal General: see HPI Physical Exam General General Nourishment: adult, obese General Body Habitus: well groomed Vitals and Pain First Documented Vital Signs Date Time Temp Pulse Resp B/P Pulse Ox O2 Delivery O2 Flow Rate FiO2 11/20/16 18:55 97.5 94 16 95/61 98 Room Air 11/20/16 19:10 2.00 Weight: Kilograms: Height (feet): 5 Height (inches): 2.00 Triage Pain Scale: Normal Exams: Head: Normocephalic w/o trauma ENMT: No facial trauma, nasal exudates, pharyngeal erythema, or exudates are noted Neck: Full range of motion, without adenopathy, JVD, bruits or thyromegaly Chest/Resp: Clear all [place], with good airflow, and symmetry bilaterally CV: Regular rate and rhythm, without murmur or gallop, Pulses 2+ all extremities, capillary refill, <2 seconds all ext., no pedal edema noted Neurologic: Patient is alert, and oriented, cranial nerves, motor/sensory/ cerebellar, exams w/o gross deficits, to observation Psychiatric: Patient exhibits, appropriate attention, emotion and affect Abdomen (brief) Comments Positive bowel sounds, obese, no masses palpable. Patient tolerated fairly deep palpation with the Ramos the stethoscope as I was listening to bowel sounds, but as soon as I used my hand, she literally came up off the table even with light touch midepigastric. Differential Diagnoses Considering: Biliary Colic, Bowel Obstruction, Constipation, Diverticulitis, Gastroenteritis, GI Bleed, Ileus Progress Results/Orders Orders Procedure Category Date Status Time Iv Lock (Ed Only) EDM 11/20/16 Transmitted 19:14 Nothing By Mouth (Ed EDM 11/20/16 Transmitted Only) 19:14 Cbc W/Auto LAB 11/20/16 Complete Diff-Reflex Manual 19:14 Cmp - Comprehensive LAB 11/20/16 Complete Metabolic 19:14 Lipase LAB 11/20/16 Complete 19:14 Kub W/Upright RAD 11/20/16 Taken 19:14 Normal Saline (Normal PHA 11/20/16 Complete Saline Iv) 19:14 Ondansetron Inj PHA 11/20/16 Complete (Zofran) 19:15 Blood Culture YNES 11/20/16 In Process 19:14 UA, LAB 11/20/16 Complete Dip&Micro(Complete) & 19:40 G.I. Cocktail PHA 11/20/16 Complete (/Maalox/Lidocaine 20:45 Oxycodone/Apap PHA 11/20/16 Complete 7.5/325 (Percocet 21:30 Ct Abd/Pelvis W/O CT 11/20/16 Taken Contrast 21:28 Lab Results Laboratory Tests Test 11/20/16 19:40 White Blood Count 9.2T/MM3 Red Blood Count 5.14M/MM3 Hemoglobin 14.6GM/DL Hematocrit 46.4% Mean Corpuscular Volume 90.3UM3 Mean Corpuscular Hemoglobin 28.4UUG Mean Corpuscular Hemoglobin Concent 31.5GM/DL RDW Standard Deviation 56.2FL Platelet Count 279T/MM3 Mean Platelet Volume 11.1UM3 Immature Granulocyte % (Auto) 0.1% Neutrophils (%) (Auto) 64.7% Lymphocytes (%) (Auto) 21.3% Monocytes (%) (Auto) 10.8% Eosinophils (%) (Auto) 2.7% Basophils (%) (Auto) 0.4% Absolute Immature Granulocyte (auto 0.01T/MM3 Absolute Neutrophils (auto) 5.9T/MM3 Absolute Lymphocytes (auto) 2.0T/MM3 Absolute Monocytes (auto) 1.0T/MM3 Absolute Eosinophils (auto) 0.3T/MM3 Absolute Basophils (auto) 0.0T/MM3 Urine Collection Type Voided-not cc-midstr Urine Color Yellow Urine Turbidity Sl cloudy Urine pH 5.5 Urine Specific Burden 1.025 Urine Protein Trace Urine Glucose (UA) Negative Urine Ketones Negative Urine Blood 1+ Urine Nitrite Negative Urine Bilirubin Negative Urine Urobilinogen 1.0EU/DL Urine Leukocyte Esterase Negative Urine RBC 3-5/HPF Urine WBC 0-1/HPF Urine Amorphous Urates Moderate Urine Bacteria None seen Urine Fine Granular Casts 3-5/LPF Urine Culture Indicated Cult not indicated Turbidity < 20 Sodium Level 142MEQ/L Potassium Level 3.6MEQ/L Chloride Level 96MEQ/L Carbon Dioxide Level 28MEQ/L Anion Gap 18MEQ/L Blood Urea Nitrogen 17.0MG/DL Creatinine 1.0MG/DL Glomerular Filtration Rate Calc 56 BUN/Creatinine Ratio 17RATIO Glucose Level 176MG/DL Calculated Osmolality 279MOSM/KG Calcium Level 8.9MG/DL Total Bilirubin 1.10MG/DL Icterus Index < 2 Aspartate Amino Transf (AST/SGOT) 30U/L Alanine Aminotransferase (ALT/SGPT) 34U/L Alkaline Phosphatase 80U/L Total Protein 7.5G/DL Albumin 4.2G/DL Globulin 3.3G/DL Albumin/Globulin Ratio 1.3RATIO Lipase 147U/L Chemistry Specimen Hemolysis < 15 Medications Current ED Medications Sodium Chloride (Normal Saline IV) 1,000 ml @ 500 mls/hr Q2H ONCE IV Last administered on 11/20/16 20:23; Start 11/20/16 at 19:14; Stop 11/20/16 at 21:13; Status DC Ondansetron HCl (Zofran) 4 mg O ONCE IV Last administered on 11/20/16 20:23; Start 11/20/16 at 19:15; Stop 11/20/16 at 19:18; Status DC Pharmacy Profile Note (/Maalox/ Lidocaine Soln) 30 ml O ONCE PO Last administered on 11/20/16 20:35; Start 11/20/16 at 20:45; Stop 11/20/16 at 20:46; Status DC Oxycodone/ Acetaminophen (Percocet 7.5/ 325) 1 tab O ONCE PO ; Start 11/20/16 at 21:30; Stop 11/20/16 at 21:31; Status DC Progress Progress White count returns normal at 5.1, CMP is appropriate, UA shows 1+ hematuria. Patient is not noticed any blood in her urine, has no dysuria. I did obtain CT abdomen pelvis due to the hematuria and the fact that she has had tomorrow very complete workup over the last 3 days and has not been satisfied. I was concerned we may have been missing something in the abdomen or pelvis, however CT returned normal. She was worked up thoroughly in the emergency room 48 hours ago, and saw Dr. Khan in his clinic yesterday. She was scheduled to see Dr. Helms today, and came into the emergency department tonight. She has had 3 different physicians all agree on diagnosis of viral gastroenteritis. I have encouraged her to see Dr. Helms tomorrow. The patient and her were very insistent that she be admitted to the hospital, however I cannot come up with a qualifying diagnosis. They are adamant that she will just come back tomorrow, which she is welcome to do if she feels she needs to. I tried to answer questions, but was unable to satisfy her . They continued to insist on hospital admission, I did offer to admit her, but explained that insurance would likely not cover the cost and they may be responsible for it out of pocket. They declined to come into the hospital under those conditions. I explained that I had ordered the CT scan of her abdomen pelvis in an attempt to find anything else that would allow me to admit her. With normal labs over a [address] scan of abdomen pelvis, she was given IV fluids, pain medication and nausea medication. She declined oral pain medication stating she would throw it up. I offered more nausea medication on discharge, patient stated that she had some. She wasn't certain what was and could not remember what it tasted like, I offered to write both Phenergan and Zofran for so that she would have the alternative, but she declined that as well. She states she can't have Gatorade because she has heart failure, explained that for the next couple of days Gatorade would be just fine and would help keep her hydrated. She states she's been eating broth, and throwing it up. I explained that this is more solid Gatorade and likely be more irritating to her stomach as well. She may need to see GI for follow-up if she continues to have the abdominal pain, she can discuss this with Dr. Helms. ANTHONY GELLER MD Nov 20, 2016 19:11
[2016-11-20] MEDS ORDERED: NORMAL SALINE 1,000 ML IV ONE (19:14)
[2016-11-20] MEDS ORDERED: ONDANSETRON 4mg/2ml INJECTION IV ONE (19:15)
--- OUTSIDE RECORDS SUMMARY | 2016-11-20 19:29 | XMS REPORT | Continuity of Care Document ---
Author Author [facility] Organization [facility] Address Unknown Phone Unavailable Allergies Active [...] PLATELET COUNT 248 k/cumm 150-450 [facility]EL, [facility] - 10/16/16 06:05 POTASSIUM 3.6 mmol/L 3.5-5.3 [...] 10/16/16 09:42 ACT PLUS (POC) 166 sec [place] <160 ACT PLUS (POC) - 10/16/16 10:27 ACT PLUS (POC) 263 sec [place] <160 ACT PLUS (POC) - 10/16/16 10:52 ACT PLUS (POC) 272 sec [place] <160 ACT PLUS (POC) - 10/16/16 11:15 ACT PLUS (POC) 403 sec [place] <160 ACT PLUS (POC) - 10/16/16 11:42 ACT PLUS (POC) 347 sec [place] <160 ACT PLUS (POC) - 10/16/16 12:07 ACT PLUS (POC) 395 sec [place] <160 ACT PLUS (POC) - 10/16/16 12:36 ACT PLUS (POC) 401 sec [place] <160 GLUCOSE (POC) - 10/16/16 13:17 GLUCOSE (POC) 193 mg/dL 70-99 ACT PLUS (POC) - 10/16/16 13:19 ACT PLUS (POC) 366 sec [place] <160 GLUCOSE (POC) - 10/16/16 20:31 GLUCOSE [...] Status Pt. Type Provider Facility Loc./Unit Complaint [id number] 10/25/2013 08:28:00 10/25/2013 23 :59:59 CLS Outpatient [id number] 07/19/2013 13:40:00 07/19/2013 23 :59:59 CLS Outpatient
--- OUTSIDE RECORDS SUMMARY | 2016-11-20 19:31 | XMS REPORT ---
Author Author [place], [facility] - Organization Unknown Address Unknown Phone Unavailable [...] the responsibility of the patient or patient training representative to confirm the list of medications [...] Clean Catch Received : 05/16/13 11:10 Order#: [id number] Urine Culture FINAL 05/17/13 07:11 F Mixed dominic indicative of skin contamination F: Performed at: [facility], [address] [facility], [place] FOR RESULTS: * - NEW RESULT - RESULT WAS MODIFIED AFTER FINAL STATUS SET
--- NOTE | 2016-11-20 19:41 | NUR ---
LAB IN ROOM
[2016-11-20 20:05] LABS: BLOOD, URINE 1+ (NEGATIVE); COLOR,URINE YELLOW (YELLOW); LEUKOCYTE ESTERASE ,URINE NEGATIVE (NEGATIVE); NITRITE,URINE NEGATIVE (NEGATIVE)
[2016-11-20 20:12] LABS: BASOPHILS % (AUTO) 0.4 % (0-2); EOSINOPHILS # (AUTO) 0.3 T/MM3 (0-0.5); EOSINOPHILS % (AUTO) 2.7 % (0-4); HCT - HEMATOCRIT 46.4 % (36-46); HGB - HEMOGLOBIN 14.6 GM/DL (12-16); IMMATURE GRANULOCYTE # (AUTO) 0.01 T/MM3 (0.00-0.03); IMMATURE GRANULOCYTE % (AUTO) 0.1 % (0.0-0.5); LYMPHOCYTES % (AUTO) 21.3 % (23-45); MEAN CORPUSCULAR HGB 28.4 UUG (26-34); MEAN CORPUSCULAR HGB CONC(MCHC 31.5 GM/DL (31-37); MEAN CORPUSCULAR VOLUME 90.3 UM3 (80-100); MEAN PLATELET VOLUME 11.1 UM3 (9.4-12.4); MONOCYTES % (AUTO) 10.8 % (0-9.0); NEUTROPHILS #(AUTO)-ABSOLUTE 5.9 T/MM3 (1.8-7.7); NEUTROPHILS % (AUTO) 64.7 % (33-66); RED BLOOD COUNT 5.14 M/MM3 (4.00-5.20); WBC - WHITE BLOOD COUNT 9.2 T/MM3 (4.5-11.0)
[2016-11-20 20:16] LABS: ALBUMIN 4.2 G/DL (3.5-5.0); ALBUMIN/GLOBULIN RATIO 1.3 RATIO (1.1-2.2); ALKALINE PHOSPHATASE 80 U/L (38-126); ALT (SGPT) 34 U/L (9-52); ANION GAP 18 MEQ/L (5-15); AST (SGOT) 30 U/L (14-36); BUN/CREATININE RATIO 17 RATIO (6-26); CALCIUM 8.9 MG/DL (8.4-10.2); CHLORIDE 96 MEQ/L (98-107); CO2 - CARBON DIOXIDE 28 MEQ/L (22-30); GLOMERULAR FILTRATION RATE 56; GLUCOSE 176 MG/DL (65-110); LIPASE 147 U/L (23-300); POTASSIUM 3.6 MEQ/L (3.6-5); SODIUM 142 MEQ/L (134-144); TOTAL PROTEIN 7.5 G/DL (6.3-8.2)
[2016-11-20 20:24] LABS: WBC,URINE 0-1 /HPF (0-5)
[2016-11-20 20:34] LABS: BACTERIA,URINE NONE SEEN (NEGATIVE)
[2016-11-20] MEDS ORDERED: G.I. COCKTAIL 30ml PO ONE (20:45)
--- NOTE | 2016-11-20 21:15 | NUR ---
STATUS PT STATES GI COCKTAIL DID NOT HELP THE PAIN
--- NOTE | 2016-11-20 21:45 | NUR ---
BACK FROM CT
--- NOTE | 2016-11-20 21:51 | NUR ---
STATUS PT REFUSES PAIN PILL SHE STATES THAT SHE IS NAUSEATED. REFUSES CRACKERS OR PUDDING
--- NOTE | 2016-11-20 21:52 | NUR ---
PAIN DR GELLER NOTIFIED OF PTS PAIN C/O
--- NOTE | 2016-11-20 22:23 | NUR ---
DR GELLER WITH PT
[2016-11-20 22:50] VITALS: BP 108/62; PULSE 97; RESP 18; TEMP 97.5; O2SAT 98
--- NOTE | 2016-11-21 07:54 | DI ---
Indication: ITS.REASON: abdominal pain, midepigastric, hematuria PROCEDURE: CT ABD/PELVIS W/O CONTRAST: Encounter: Initial Comparison: May 20, 2013 Technique: Axial CT images were performed through the abdomen and pelvis without intravenous contrast. Coronal and sagittal two-dimensional reformats. Automated Exposure Control and Iterative Reconstruction dose reducing techniques were utilized. Findings: Cardiac pacemaker and mitral valve replacement. Cardiomegaly trace right pleural effusion. Liver is enlarged without contour deforming mass. The gallbladder is surgically absent. The spleen, pancreas and adrenal glands are within normal limits. Unenhanced kidneys are grossly normal. No ureteral stones seen. Bladder is normal. Uterus is absent. Small amount of free fluid in the pelvis. No bowel obstruction. The appendix is not seen. There is an enlarged right inguinal lymph node on axial image #94 measuring 1.4 cm in diameter. This could be reactive. Bone windows show no acute findings. Impression: 1. No acute disease process seen in the abdomen or pelvis. 2. Borderline enlarged superficial right inguinal lymph node. This is probably reactive however a follow-up ultrasound is recommended in one to two months to evaluate for resolution. .
--- NOTE | 2016-11-21 07:57 | DI ---
Indication: ITS.REASON: abdominal pain PROCEDURE: KUB W/UPRIGHT: Encounter: Initial Comparison: None Findings: Lung bases are grossly clear. No free air identified. Nonobstructive nonspecific bowel gas pattern. Hepatomegaly. Scattered colonic gas seen to the level of the rectum. Mild degenerative change and scoliosis in the spine. Cholecystectomy clips. Impression: Hepatomegaly. No acute disease process seen. .
[2016-11-21] MEDS ORDERED: ALEN70TA48 PO (13:08)
== END 2016-11-20 22:50 | disposition home or self-care (01) ==
LOC: ED 18:55
DX: A08.4 Viral intestinal infection, unspecified (principal); E86.0 Dehydration; R31.9 Hematuria, unspecified; I11.0 Hypertensive heart disease with heart failure; I50.9 Heart failure, unspecified; Z87.891 Personal history of nicotine dependence
CPT/HCPCS: 36415; 74020; 74176; 80053; 81001; 83690; 85025; 87040; 96361; 96374; 99284; J2405; J7030; J7999

== ENCOUNTER 2016-11-21 11:53 | Inpatient (IN) | payer BC ==
[2016-11-21] VITALS (7 sets, daily range): BP systolic 112–134; BP diastolic 67–84; PULSE 96–99; RESP 16–24; TEMP 95.1–97.2; O2SAT 88–94; Ht 167.6 cm; Wt 117.4 kg
[~2016-11-21] VITALS: Ht 167.6 cm; Wt 117.4 kg
[~2016-11-21 11:53] MED LIST changes: -ALEN70TA2 PO; -ONDA4TAB7 PO; -WARF7.5T4 PO
[2016-11-21] MEDS ORDERED: PROMETHAZINE 25 MG INJECTION IV PRN (12:00)
[2016-11-21] MEDS ORDERED: 1/2 NS 1,000 ML IV SCH (12:00)
--- NOTE | 2016-11-21 12:05 | NUR ---
ADMISSION TO MEDICAL VSS, HOWEVER PATIENT'S O2 SATURATION AT TIMES DIPS BELOW 9%, 1L O2 NC APPLIED. PATIENT REPORTS SOME SOA. REPORTING 10/10 PAIN IN EPIGASTRIC AREA, EXTREMELY PAINFUL TO TOUCH ESPECIALLY. ORIENTED TO ROOM. SON PRESENT.
--- OUTSIDE RECORDS SUMMARY | 2016-11-21 12:06 | XMS REPORT | Continuity of Care Document ---
Author Author [facility] Organization [facility] Address Unknown Phone Unavailable Allergies Active Description [...] PLATELET COUNT 248 k/cumm 150-450 METABOLIC PANEL, [facility] - 10/16/16 06:05 POTASSIUM 3.6 mmol/L [...] 10/16/16 09:42 ACT PLUS (POC) 166 sec [place] <160 ACT PLUS (POC) - 10/16/16 10:27 ACT PLUS (POC) 263 sec [place] <160 ACT PLUS (POC) - 10/16/16 10:52 ACT PLUS (POC) 272 sec [place] <160 ACT PLUS (POC) - 10/16/16 11:15 ACT PLUS (POC) 403 sec [place] <160 ACT PLUS (POC) - 10/16/16 11:42 ACT PLUS (POC) 347 sec [place] <160 ACT PLUS (POC) - 10/16/16 12:07 ACT PLUS (POC) 395 sec [place] <160 ACT PLUS (POC) - 10/16/16 12:36 ACT PLUS (POC) 401 sec [place] <160 GLUCOSE (POC) - 10/16/16 13:17 GLUCOSE (POC) 193 mg/dL 70-99 ACT PLUS (POC) - 10/16/16 13:19 ACT PLUS (POC) 366 sec [place] <160 GLUCOSE (POC) - 10/16/16 20:31 GLUCOSE [...] Status Pt. Type Provider Facility Loc./Unit Complaint [id number] 10/25/2013 08:28:00 10/25/2013 23 :59:59 CLS Outpatient [id number] 07/19/2013 13:40:00 07/19/2013 23 :59:59 CLS Outpatient
--- OUTSIDE RECORDS SUMMARY | 2016-11-21 12:07 | XMS REPORT ---
Author Author [place], [facility] - Organization Unknown Address Unknown [...] the responsibility of the patient or patient pharmaceutical specialty representative to confirm the list of medications [...] Clean Catch Received : 05/16/13 11:10 Order#: [id number] Urine Culture FINAL 05/17/13 07:11 F Mixed dominic indicative of skin contamination F: Performed at: [facility], [address] [facility], [place] FOR RESULTS: * - NEW RESULT - RESULT WAS MODIFIED AFTER FINAL STATUS SET
--- OUTSIDE RECORDS SUMMARY | 2016-11-21 12:08 | XMS REPORT | Continuity of Care Document ---
Author Author [facility] Organization [facility] Address Unknown Phone Unavailable Support Name Relationship Address Phone ANTHONY GELLER MD Caregiver [address] [place] [address] Unavailable KENNETH HELMS DO Caregiver [address] [place] [address] Unavailable RUDY FIGUEREDO Next Of Kin [address], [place] [id number] Insurance Providers Guarantor Marilyn Figueredo Address [address] [place] [address] Email DENIED 16 Payer [facility] Policy Number [id number] Subscriber's Name FigueredoShaun choudharytay Relationship 18 Self Group Number [id number] Chief Complaint and Reason for Visit Chief Complaint Abdominal Pain Reason for Visit Viral gastroenteritis Mild dehydration Problems Active Problems Medical Problem Onset Date Status 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 [...] Hypertension Unknown Chronic Ischemic cardiomyopathy Unknown 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 Mixed hyperlipidemia Unknown Chronic Nonrheumatic mitral valve insufficiency Unknown Chronic Pain and swelling of left lower leg Unknown Acute Presence of automatic implantable cardioverter-defibrillator Unknown Chronic Presence of prosthetic heart valve Unknown Chronic Type 2 diabetes mellitus without complications Unknown Chronic Vomiting Unknown Acute Past Problems Medical Problem Onset Date Dyspnea Unknown Gastroenteritis Unknown Hypotension Unknown Mild dehydration Unknown Tachycardia Unknown Tachycardia Unknown Viral gastroenteritis Unknown Medications Current Home Medications Medication Dose [...] Daily 04/24/16 Metoprolol Tartrate 25 Mg Tablet 50 Mg Oral Twice A Day 09/02/16 Ondansetron [...] 01/28/09 Discontinued Aspirin (Aspir 81) 81 Mg Tablet., 81 Mg Oral Daily 05/20/13 Discontinued Aspirin [...] Applicable Not Applicable Hx Substance Use No 11/20/2016 7:10pm Not Applicable Not Applicable Hx Alcohol Use No 11/20/2016 7:10pm Not Applicable Not Applicable Has the pt used tobacco in the last 12 months No 10/14/2016 11:07pm Not Applicable Not Applicable Query Response Start Date Stop Date Smoking Status Never smoker Hospital Discharge Instructions No hospital discharge instructions. Plan of Care Discharge Date 11/20/16 10:50pm Disposition 01 DISCHARGED HOME, SELF-CARE Condition at Discharge Stable Instructions/Education Provided Abdominal Pain (ED) Prescriptions See Medication Section Referrals KENNETH HELMS DO Address: [address] [place] [address] [place] [address] Additional Instructions/Education Gatorade sips frequently for hydration. Follow-up with your primary care provider tomorrow. Please take your nausea medication as prescribed. Functional Status No functional status results. Allergies, Adverse Reactions, Alerts Allergen Type Severity Reaction Status Last Updated Iodinated Contrast Media - Oral and Adverse Reaction Intermediate VOMITING Active 11/20/16 Penicillin Allergy Intermediate HIVES Active 11/20/16 Morphine Allergy Unknown HEADACHES Active 11/20/16 Codeine Allergy Intermediate HIVES Active 11/20/16 Hydrocodone Adverse Reaction Intermediate ABDOMINAL CRAMPS Active 11/20/16 Erythromycin base Adverse Reaction Intermediate ABDOMINAL CRAMPS Active Amoxicillin Allergy Intermediate hives Active 11/20/16 Metformin Allergy Intermediate NAUSEA & VOMITING Active 11/20/16 Meperidine Allergy Unknown HIVES Active 11/20/16 ANESTHETICS Adverse Reaction Mild NAUSEA Active 04/24/16 Immunizations Query Response on File Recorded Date/Time Hx Influenza Vaccination Y 05/201610/14/16 11:07pm Hx Pneumococcal Vaccination No 10/14/16 11:07pm Hx Influenza Vaccination Y 05/201610/14/16 11:07pm DTaP Vaccine History 2016 11/20/16 7:10pm Influenza Vaccine Hx 05/201611/20/16 7:10pm Vital Signs Acute Vital Signs Vital Response Date/Time Temperature (Fahrenheit) 97.5 deg F (96.8 - 99.1) 11/20/2016 10:50pm Temperature (Calculated Celsius) 36.00425 degrees C (36.0 - 37.3) 11/20/2016 10:50pm Pulse Rate (adult) 97 bpm (60 - 100) 11/20/2016 10:50pm Respiratory Rate 18 breaths/min (10 - 20) 11/20/2016 10:50pm O2 Sat by Pulse Oximetry 98 % (90 - 100) 11/20/2016 10:50pm Oxygen Delivery Method Nasal Cannula 09/02/2016 10:37pm Oxygen Delivery Method Room Air 10/15/2016 11:40am Oxygen Flow Rate 2.00 L/min 11/20/2016 10:50pm Blood Pressure 108/62 mm Hg 11/20/2016 10:50pm Blood Pressure Source Automatic Cuff 10/15/2016 11:39am Height (Feet) 5 feet 11/20/2016 6:55pm Height (Inches) 6.00 inches 11/20/2016 6:55pm Weight (Kilograms) 110.000 kg 11/20/2016 6:55pm Body Mass Index (BMI) 39.0 11/20/2016 6:55pm Results Laboratory Results Test Name Result Units [...] (PCR) NEGATIVE NEGATIVE 09/02/2016 5:13pm 09/02 6:47pm IB-Oon-P-Type Natriuretic Peptide 1910 PG/ML H 0-175 10/14/2016 [...] mg/dL H 65-110 10/15/2016 11:13am 10/15/2016 5:05pm Prothromb Time International Ratio 2.38 H 0.76-1.04 11/18/2016 6:00pm 11/18/2016 6:12pm THERAPUTIC RANGE=2.00-3.00 FOR ANTI-THROMBOSIS THERAPUTIC RANGE=2.50-3.50 FOR IMPLANTED VALVE D-Dimer < 150 NG/ML 0-230 11/18/2016 6:00pm 11/18/2016 7:18pm <230 NG/ ML D-DU=PRESUMPTIVE NEGATIVE FOR PE OR DVT >230 NG/ML D-DU=ADDITIONAL EVAL FOR PE OR DVT RECOMMENDED Troponin I < 0.012 ng/ml 0-0.12 11/18/2016 6:00pm 11/18/2016 6:27pm Troponin values with a difference of 55% increase from orginal troponin value represent a true biological DELTA value. (%increase Calc=Orginal Troponin value, divided by subsequent Troponin value, multiplied by 100) Urinalysis Comment MICROSCOPIC NOT IND. 11/18/2016 6:51pm 2016 6:56pm White Blood Count 9.2 T/MM3 4.5-11.0 11/20/2016 7:40pm 11/20/2016 8: 12pm Red Blood Count 5.14 M/MM3 4.00-5.20 11/20/2016 7:40pm 11/20/2016 8: 12pm Hemoglobin 14.6 GM/DL 12-16 11/20/2016 7:40pm 11/20/2016 8:12pm Hematocrit 46.4 % H 36-46 11/20/2016 7:40pm 11/20/2016 8:12pm Mean Corpuscular Volume 90.3 UM3 80-100 11/20/2016 7:40pm 11/20/2016 8: 12pm Mean Corpuscular Hemoglobin 28.4 UUG 26-34 11/20/2016 7:40pm 2016 8:12pm Mean Corpuscular Hemoglobin Concent 31.5 GM/DL 31-37 11/20/2016 7:40pm 11/20/2016 8:12pm RDW Standard Deviation 56.2 FL H 36.9-50.2 11/20/2016 7:40pm 11/20/2016 8:12pm Platelet Count 279 T/MM3 130-400 11/20/2016 7:40pm 11/20/2016 8:12pm Mean Platelet Volume 11.1 UM3 9.4-12.4 11/20/2016 7:40pm 11/20/2016 8: 12pm Neutrophils (%) (Auto) 64.7 % 33-66 11/20/2016 7:40pm 11/20/2016 8: 12pm Lymphocytes (%) (Auto) 21.3 % L 23-45 11/20/2016 7:40pm 11/20/2016 8: 12pm Monocytes (%) (Auto) 10.8 % H 0-9.0 11/20/2016 7:40pm 11/20/2016 8:12pm Eosinophils (%) (Auto) 2.7 % 0-4 11/20/2016 7:40pm 11/20/2016 8:12pm Basophils (%) (Auto) 0.4 % 0-2 11/20/2016 7:40pm 11/20/2016 8:12pm Immature Granulocyte % (Auto) 0.1 % 0.0-0.5 11/20/2016 7:40pm 2016 8:12pm Absolute Neutrophils (auto) 5.9 T/MM3 1.8-7.7 11/20/2016 7:40pm 2016 8:12pm Absolute Lymphocytes (auto) 2.0 T/MM3 1-4.8 11/20/2016 7:40pm 2016 8:12pm Absolute Monocytes (auto) 1.0 T/MM3 H 0-0.8 11/20/2016 7:40pm 2016 8:12pm Absolute Eosinophils (auto) 0.3 T/MM3 0-0.5 11/20/2016 7:40pm 2016 8:12pm Absolute Basophils (auto) 0.0 T/MM3 0-0.2 11/20/2016 7:40pm 11/20/2016 8:12pm Absolute Immature Granulocyte (auto 0.01 T/MM3 0.00-0.03 11/20/2016 7: 40pm 11/20/2016 8:12pm Icterus Index < 2 0-7 11/20/2016 7:40pm 11/20/2016 8:16pm Chemistry Specimen Hemolysis < 15 0-25 11/20/2016 7:40pm 11/20/2016 8 :16pm 0-25: Specimen Exhibited No Hemolysis. Turbidity < 20 0-20 11/20/2016 7:40pm 11/20/2016 8:16pm Sodium Level 142 MEQ/L 134-144 11/20/2016 7:40pm 11/20/2016 8:16pm Potassium Level 3.6 MEQ/L 3.6-5 11/20/2016 7:40pm 11/20/2016 8:16pm Chloride Level 96 MEQ/L L 98-107 11/20/2016 7:40pm 11/20/2016 8:16pm Carbon Dioxide Level 28 MEQ/L 22-30 11/20/2016 7:40pm 11/20/2016 8: 16pm Anion Gap 18 MEQ/L H 5-15 11/20/2016 7:40pm 11/20/2016 8:16pm Blood Urea Nitrogen 17.0 MG/DL 7-17 11/20/2016 7:40pm 11/20/2016 8: 16pm Creatinine 1.0 MG/DL 0.7-1.2 11/20/2016 7:40pm 11/20/2016 8:16pm BUN/Creatinine Ratio 17 RATIO 6-26 11/20/2016 7:40pm 11/20/2016 8:16pm Glomerular Filtration Rate Calc 56 11/20/2016 7:40pm 11/20/2016 8: 16pm Glucose Level 176 MG/DL H 65-110 11/20/2016 7:40pm 11/20/2016 8:16pm Calculated Osmolality 279 MOSM/KG 261-280 11/20/2016 7:40pm 11/20/2016 8:16pm Calcium Level 8.9 MG/DL 8.4-10.2 11/20/2016 7:40pm 11/20/2016 8:16pm Total Bilirubin 1.10 MG/DL 0.20-1.30 11/20/2016 7:40pm 11/20/2016 8: 16pm Alkaline Phosphatase 80 U/L 38-126 11/20/2016 7:40pm 11/20/2016 8:16pm Total Protein 7.5 G/DL 6.3-8.2 11/20/2016 7:40pm 11/20/2016 8:16pm Albumin 4.2 G/DL 3.5-5.0 11/20/2016 7:40pm 11/20/2016 8:16pm Globulin 3.3 G/DL 2.4-3.6 11/20/2016 7:40pm 11/20/2016 8:16pm Albumin/Globulin Ratio 1.3 RATIO 1.1-2.2 11/20/2016 7:40pm 11/20/2016 8 :16pm Aspartate Amino Transf (AST/SGOT) 30 U/L 14-36 11/20/2016 7:40pm 2016 8:16pm Alanine Aminotransferase (ALT/SGPT) 34 U/L 9-52 11/20/2016 7:40pm 11/20 8:16pm Lipase 147 U/L 23-300 11/20/2016 7:40pm 11/20/2016 8:16pm Urine Collection Type VOIDED-NOT CC-MIDSTR 11/20/2016 7:40pm 2016 8:05pm Urine Color YELLOW YELLOW 11/20/2016 7:40pm 11/20/2016 8:05pm Urine Turbidity SL CLOUDY CLEAR 11/20/2016 7:40pm 11/20/2016 8:05pm Urine Specific [place] 1.025 1.015-1.025 11/20/2016 7:40pm 2016 8:05pm Urine pH 5.5 5.0-8.0 11/20/2016 7:40pm 11/20/2016 8:05pm Urine Leukocyte Esterase NEGATIVE NEGATIVE 11/20/2016 7:40pm 2016 8:05pm Urine Nitrite NEGATIVE NEGATIVE 11/20/2016 7:40pm 11/20/2016 8:05pm Urine Protein TRACE A NEGATIVE 11/20/2016 7:40pm 11/20/2016 8:05pm Urine Glucose (UA) NEGATIVE NEGATIVE 11/20/2016 7:40pm 11/20/2016 8: 05pm Urine Ketones NEGATIVE NEGATIVE 11/20/2016 7:40pm 11/20/2016 8:05pm Urine Urobilinogen 1.0 EU/DL NORMAL 11/20/2016 7:40pm 11/20/2016 8: 05pm Urine Bilirubin NEGATIVE NEGATIVE 11/20/2016 7:40pm 11/20/2016 8: 05pm Urine Blood 1+ A NEGATIVE 11/20/2016 7:40pm 11/20/2016 8:05pm Urine WBC 0-1 /HPF 0-5 11/20/2016 7:40pm 11/20/2016 8:26pm Urine RBC 3-5 /HPF H 0-3 11/20/2016 7:40pm 11/20/2016 8:26pm Urine Bacteria NONE SEEN NEGATIVE 11/20/2016 7:40pm 11/20/2016 8: 34pm Urine Amorphous Urates MODERATE 11/20/2016 7:40pm 11/20/2016 8: 26pm Urine Fine Granular Casts 3-5 /LPF 11/20/2016 7:40pm 11/20/2016 8: 26pm Urine Culture Indicated CULT NOT INDICATED 11/20/2016 7:40pm 2016 8:34pm Microbiology Results Procedure Source Organism/Result Collection Date/Time Result Date/Time Result Status Blood Culture Peripheral/Iv Start CULTURE INITIATED - RESULTS PENDING 11/20 7:47pm 11/20/2016 8:02pm Preliminary Procedures Procedure Status Date Provider(s) Routine venipuncture [...] Completed 09/02/16 Emergency dept visit Completed 09/02/16 457766"INJECTION, FUROSEMIDE, UP TO 20 MG" Completed 09/02/16 978533"INFUSION, NORMAL SALINE SOLUTION , 1000 CC" Completed [...] Completed 10/14/16 Emergency dept visit Completed 10/14/16 [id number]"INJECTION, DIGOXIN, UP TO 0.5 MG" Completed 10/14/16 [id number]"INFUSION, NORMAL SALINE SOLUTION , 1000 CC" Completed 10/14/16 [id number]"INFUSION, NORMAL SALINE SOLUTION , 1000 CC" Completed 10/14/16 Ct head/brain w/o dye Completed 11/11/16 Ct head/brain w/o dye Completed 11/18/16 Chest x-ray 2vw frontal&latl Completed 11/18/16 Comprehen metabolic panel Completed 11/18/16 Urinalysis auto w/o scope Completed 11/18/16 Assay of troponin quant Completed 11/18/16 Complete cbc w/auto diff wbc Completed 11/18/16 Fibrin degradation quant Completed 11/18/16 Prothrombin time Completed 11/18/16 Electrocardiogram tracing Completed 11/18/16 Hydrate iv infusion add-on Completed 11/18/16 Ther/proph/diag inj iv push Completed 11/18/16 Emergency dept visit Completed 11/18/16 [id number]"INJECTION, ONDANSETRON HYDROCHLORIDE, PER 1 MG" Completed 11/18/16 [id number]"INFUSION, NORMAL SALINE SOLUTION , 1000 CC" Completed 11/18/16 Encounters Encounter Location Arrival/Admit Date Discharge/Depart Date Attending Provider Departed Emergency Room [facility] 11/20/16 6:55pm 11/20/16 10: 50pm ANTHONY GELLER MD Departed Emergency Room [facility] 11/18/16 5:40pm 11/18/16 7: 55pm NACHO ROBBINS DO Registered Clinic [facility] 11/11/16 1:07pm KENNETH HELMS DO Discharged Inpatient (obs) [facility] 10/14/16 7:50pm 10/15/16 4: 20pm EDMUND RO MD Registered Clinic [facility] 10/08/16 12:23pm EDMUND RO MD Discharged Inpatient (obs) [facility] 09/02/16 4:10pm 09/03/16 1: 15pm EDMUND RO MD Recent Diagnosis
[2016-11-21] MEDS: ONDANSETRON 4mg/2ml INJECTION IV PRN ×2 (13:08→20:56)
[2016-11-21] MEDS ORDERED: ALEN70TA48 PO (13:08)
[2016-11-21 13:10] LABS: INR 2.88 (0.76-1.04); PROTHROMBIN TIME 31.4 SEC (9.31-12.49)
[2016-11-21 13:12] LABS: BASOPHILS % (AUTO) 0.2 % (0-2); EOSINOPHILS % (AUTO) 0.1 % (0-4); HCT - HEMATOCRIT 43.9 % (36-46); IMMATURE GRANULOCYTE # (AUTO) 0.02 T/MM3 (0.00-0.03); IMMATURE GRANULOCYTE % (AUTO) 0.2 % (0.0-0.5); LYMPHOCYTES % (AUTO) 9.8 % (23-45); MEAN CORPUSCULAR HGB 28.7 UUG (26-34); MEAN CORPUSCULAR HGB CONC(MCHC 31.9 GM/DL (31-37); MEAN PLATELET VOLUME 10.8 UM3 (9.4-12.4); MONOCYTES # (AUTO) 0.7 T/MM3 (0-0.8); MONOCYTES % (AUTO) 6.6 % (0-9.0); NEUTROPHILS #(AUTO)-ABSOLUTE 8.4 T/MM3 (1.8-7.7); NEUTROPHILS % (AUTO) 83.1 % (33-66); RED BLOOD COUNT 4.88 M/MM3 (4.00-5.20); WBC - WHITE BLOOD COUNT 10.1 T/MM3 (4.5-11.0)
[2016-11-21 13:20] LABS: ALBUMIN 3.7 G/DL (3.5-5.0); ALBUMIN/GLOBULIN RATIO 1.2 RATIO (1.1-2.2); ALKALINE PHOSPHATASE 78 U/L (38-126); ALT (SGPT) 42 U/L (9-52); ANION GAP 16 MEQ/L (5-15); AST (SGOT) 40 U/L (14-36); BUN/CREATININE RATIO 16 RATIO (6-26); C-REACTIVE PROTEIN 25.7 MG/L (0-9); CALCIUM 7.9 MG/DL (8.4-10.2); CHLORIDE 100 MEQ/L (98-107); CO2 - CARBON DIOXIDE 25 MEQ/L (22-30); CREATININE 1.1 MG/DL (0.7-1.2); GLOMERULAR FILTRATION RATE 50; GLUCOSE 247 MG/DL (65-110); LIPASE 100 U/L (23-300); MAGNESIUM 2.1 MG/DL (1.6-2.3); POTASSIUM 3.9 MEQ/L (3.6-5); SODIUM 141 MEQ/L (134-144); TOTAL PROTEIN 6.8 G/DL (6.3-8.2)
[2016-11-21] MEDS: PANTOPRAZOLE 40mg INJECTION IV SCH ×2 (13:20→20:37)
[2016-11-21 13:34] LABS: HEMOGLOBIN A1C 8.5 % (6.1-7.9)
--- NOTE | 2016-11-21 13:39 | HPPDOC ---
VIKASH PORRAS V SMALL BUSINESS CONSULTANT 11/21/16 1318: HPI - Adult Date DATE: 11/21/16 TIME: 13:08 General Chief Complaint: nausea, vomiting, epigastric pain History of Present Illness Lincoln is a 66-year-old female who currently sees Dr. Sakshi Cancino for her primary care. Patient has not been feeling well since Friday11/18/16 in which she woke up having diarrhea, nausea and vomiting. He presented to the emergency room on 11/18 for acute evaluation. At that time she was having some palpitations and was concerned she was in atrial fibrillation. She had a complete evaluation and was discharged home to follow-up with Dr. Khan at his office. On Friday , 11/[address] Khan at his office, however, was not found to be in atrial fibrillation. She was discharged at that time. She then presented to the emergency room again last evening 11/20/16 with continued abdominal discomfort and nausea. Laboratory studies and CT scan were obtained. WBC count was found to be normal at 9.2, hemoglobin 14.6, hematocrit 46.4, platelet count 279. Sodium is normal at 142, potassium 3.6, chloride 96, BUN 17, creatinine 1.0, glucose 174. Lipase was normal at 147. A urinalysis was obtained showing a trace protein, 1+ blood, 3-5 WBCs, otherwise unremarkable. Given her continued pain. A CT scan of the abdomen and pelvis was obtained showing no acute process. She was given IV fluids for hydration, Zofran for nausea, GI cocktail for epigastric pain and Percocet for pain control. She was then discharged home and instructed to follow with primary care today. She did see Dr. Neff the today with continued symptoms. Due to the ongoing nausea and vomiting. The hospitalist services were contacted and accepted patient directly for an outpatient admission for further evaluation and treatment. Lincoln is seen today on initially examination she is alert and orientated. She was found to be borderline hypoxic on arrival with room air saturations 88- 90% and was placed on 1 liter of oxygen. She continues to complain of nausea and epigastric discomfort. Reports she is unable to taken any food or liquids due to the nausea. She does not appear to be in any acute distress. Her abdomen is soft, tender at the epigastric area. Reports diarrhea has subsided. Admission vital signs reviewed. Temperature 97.2, pulse 99, respiratory 24, blood pressure 112/67, room air saturations 88%. Did discuss advanced directives and she does wish to be a full code. Past Medical History Past Medical History Atrial fibrillation Diabetes Ischemic cardiomyopathy Mitral valve replacement- prosthetic heart valve Congestive heart failure Coronary artery disease History of PE Hypertension Hyperlipidemia Hypothyroidism GERD Gastric ulcers Arthritis Surgical History Patient's Surgical History: Pacemaker/defibrillator Cardiac Ablasion- 10/2016 (Dr Bishop) CABG 1 vessel -1991 CABG 3 vessels -2011 Hysterectomy Appendectomy. Cholecystectomy-2007. LAXMI EGD-2008 Right knee arthroscopic 2002 Right meniscal tear repair 2003 Current Medications Home Meds Reported Medications Alendronate Sodium (Alendronate Sodium) 70 Mg Tablet, 70 MG PO Q7D, TAB TAKE ON EMPTY STOMACH AND TAKE NOTHING ELSE FOR 30 MINUTES. MUST REMAIN UPRIGHT-SEATED OR STANDING. 11/21/16 Liraglutide (Victoza 2-Marc) 18 Mg/Syringe Inj, 1.2 MG SQ 1500 09/02/16 Metoprolol Tartrate (Metoprolol Tartrate) 25 Mg Tablet, 50 MG PO BID 09/02/16 Glimepiride (Glimepiride) 4 Mg Tablet, 4 MG PO DAILY 09/02/16 Sertraline (Zoloft) 50 Mg Tablet, 50 MG PO HS 04/24/16 Losartan Potassium (Losartan Potassium) 25 Mg Tablet, 25 MG PO DAILY 04/24/16 Cholecalciferol (Vitamin D3) (Vitamin D3) 2,000 Unit Capsule, 2000 UNIT PO DAILY 04/23/16 Pantoprazole Sodium (Pantoprazole Sodium) 40 Mg Tablet.dr, 40 MG PO ACB 04/23/16 Simvastatin (Simvastatin) 20 Mg Tablet, 20 MG PO WS 04/23/16 Clonazepam (Clonazepam) 0.5 Mg Tablet, 0.5 MG PO HS Y for PRN ORDERS 05/12/13 Levothyroxine Sodium (Levothyroxine Sodium) 150 Mcg Tablet, 150 MCG PO ACB 05/11/13 Oxycodone Hcl/Acetaminophen (Percocet 7.5/325 Mg Tablet) 1 Tab Tablet, 1 TAB PO Q4-6H Y for PAIN 06/16/12 Potassium Chloride (Potassium Chloride) 20 Meq Tab.prt.sr, 20 MEQ PO DAILY 06/16/12 Bumetanide (Bumex) 2 Mg Tablet, 2 MG PO BID 06/16/12 Spironolactone (Spironolactone) 50 Mg Tablet, 50 MG PO DAILY 03/07/10 Warfarin Sodium (Coumadin) 5 Mg Tablet, 5 MG PO DAILY 03/07/10 Allergies: Coded Allergies: Penicillins (Verified Allergy, Intermediate, HIVES, 11/20/16) REACTION PER H&P DATED 05-05-13 amoxicillin (Verified Allergy, Intermediate, hives, 11/20/16) codeine (Verified Allergy, Intermediate, HIVES, 11/20/16) AND NAUEA metformin (Verified Allergy, Intermediate, NAUSEA & VOMITING, 11/20/16) Iodinated Contrast Media - Oral and (Verified Allergy, Unknown, 11/21/16) meperidine (Verified Allergy, Unknown, HIVES, 11/20/16) PER H&P DATED 05-05-13 morphine (Verified Allergy, Unknown, HEADACHES, 11/20/16) PER H&P DATED 05-05-13 erythromycin base (Verified Adverse Reaction, Intermediate, ABDOMINAL CRAMPS, 11/20/16) hydrocodone (Verified Adverse Reaction, Intermediate, ABDOMINAL CRAMPS, 11/20/16) Uncoded Allergies: ANESTHETICS (Adverse Reaction, Mild, NAUSEA, 04/24/16) Family History Family History: Father-hypertension, coronary artery disease Mother-hypertension, diabetes, coronary artery disease, intestinal cancer Brother-coronary artery disease Social History Smoking Status: Never smoker Does patient use chewing tobac: No Second Hand Exposure: No Substance Use Type: does not use Alcohol Intake: none Marital Status: Sexuality: male partner Housing: house Household Members: spouse Service: No Current Occupational Status: unemployed Occupational Hazard: No Advance Directives: Yes Full Code, No DPOA for Healthcare Only Social History Comments Primary care provider, Dr. Mariel Neff Cardiology Dr. Khan Review of Systems Constitutional: REPORTS: fatigue GI Upper Abdomen: dysphagia, nausea, pain (Epigastric), vomiting Lower Abdomen: diarrhea (now resolved) All Other Systems All Other Systems: Reviewed (remainder of 10-point ROS Neg.) Physical Exam General General Nourishment: well nourished, well developed Vital Signs Vital Signs Date Time Temp Pulse Resp B/P Pulse Ox O2 Delivery O2 Flow Rate FiO2 11/21/16 12:33 93 Nasal Cannula 1.00 11/21/16 12:20 97.2 99 24 112/67 Height (Feet): 5 Height (Inches): 6.00 Eyes Brief: FOUND: EOMI, PERRL ENMT Brief: FOUND: mucosa moist, normal dentition, NOT FOUND: pharnyx erythema Respiratory Brief: FOUND: clear all [place], equal bilaterally Cardiovascular (brief) Cardiac Brief: FOUND: pedal edema (trace bialteral lower ext edema), regular rate, regular rhythm Abdomen (brief) Abdominal Brief: FOUND: soft, tender (epigastric), NOT FOUND: BS normo active x4 (hypoactive bowel sounds), distended Musculoskeletal (brief) Musculoskeletal Brief: NOT FOUND: tenderness Integumentary (brief) Integumentary Brief: FOUND: dry, pink, warm Neurologic (brief) Neurological Brief: FOUND: cranial 2-12 intact Neurologic RN Documented GCS Eye Opening: Verbal: Motor: Total: Psychiatric (brief) FOUND: alert, attentive, normal affect, oriented Laboratory Laboratory Tests Test 11/21/16 12:54 Assessment & Plan Problems: (1) Epigastric abdominal pain Status: Acute (2) Nausea & vomiting Qualifiers: Vomiting Intractability: unspecified (3) Hypoxia Status: Acute (4) Chronic combined systolic and diastolic heart failure Status: Chronic (5) Presence of prosthetic heart valve Status: Chronic Assessment & Plan: Mitral valve (6) Atherosclerotic heart disease of [place] coronary artery without angina pectoris Status: Chronic (7) Type 2 diabetes mellitus without complications Status: Chronic (8) Nonrheumatic mitral valve insufficiency Status: Chronic (9) Essential (primary) hypertension Status: Chronic (10) Ischemic cardiomyopathy Status: Chronic (11) Atrial fibrillation Status: Chronic Qualifiers: Atrial fibrillation type: paroxysmal Qualified Codes: I48.0 - Paroxysmal atrial fibrillation (12) Mixed hyperlipidemia Status: Chronic (13) Cardiac pacemaker Status: Chronic (14) joint terminal attack controller (current) use of anticoagulants Status: Chronic (15) GERD (gastroesophageal reflux disease) (16) Hx of ulcer disease Status: Chronic (17) OA (osteoarthritis) Status: Chronic (18) Obesity Status: Chronic Qualifiers: Obesity type: due to excess calories Obesity severity: morbid Qualified Codes: E66.01 - Morbid (severe) obesity due to excess calories Plan/Intensity of Service Admit patient to outpatient observation under care of Dr. Taylor for nausea, vomiting, epigastric pain and hypoxia. Will obtain the following laboratory studies on admission, CBC, CMP, magnesium, hemoglobin A1c, lipase, CRP Will obtain a urinalysis on admission Will also obtain GI panel. If patient has any loose stools. Check INR given chronic anticoagulation. Will consult pharmacy for Coumadin dosing management Place patient on cardiac telemetry to monitor for dysrhythmias. Given significant cardiac history. KUB with upright as well as two-view chest x-ray. Given mild hypoxia on admission will continue with oxygen to maintain adequate saturations. Zofran and Phenergan as needed for nausea. Given significant epigastric tenderness. Will place patient on scheduled Protonix 40 milligrams IV twice a day She may have clear liquid only if her nausea is controlled Will monitor Accuchecks with meals and at bedtime SCDs to bilateral lower ext for DVT prophylaxis Recheck CBC and BMP tomorrow morning to follow blood counts, renal function and electrolytes Once home medications are reconciled will order appropriate medications Will discuss further plan of care with attending, Dr Taylor At time of discharge medical care is to return to PCP Dr Neff Code Status Full Code, unverified Hospital Course Summary Disclaimer The hospital course summary below is not to be considered part of the above Progress Note. Hospital Course Summary Admit patient to outpatient observation under care of Dr. Taylor for nausea, vomiting and epigastric pain. Will obtain the following laboratory studies on admission, CBC, CMP, magnesium, hemoglobin A1c, lipase, CRP Will obtain a urinalysis on admission Will also obtain GI panel. If patient has any loose stools. Check INR given chronic anticoagulation. Will consult pharmacy for Coumadin dosing management Place patient on cardiac telemetry to monitor for dysrhythmias. Given significant cardiac history. KUB with upright as well as two-view chest x-ray. Given mild hypoxia on admission. Will continue with oxygen to maintain adequate saturations. Zofran and Phenergan as needed for nausea. Given significant epigastric tenderness. Will place patient on scheduled Protonix 40 milligrams IV twice a day She may have clear liquid only if her nausea is controlled Will monitor Accuchecks with meals and at bedtime SCDs to bilateral lower ext for DVT prophylaxis Recheck CBC and BMP tomorrow morning to follow blood counts, renal function and electrolytes Once home medications are reconciled will order appropriate medications Will discuss further plan of care with attending, Dr Taylor At time of discharge medical care is to return to PCP MARY Craft MD 11/21/16 1529: Past Medical History Current Medications Home Meds Reported Medications Alendronate Sodium (Alendronate Sodium) 70 Mg Tablet, 70 MG PO Q7D, TAB TAKE ON EMPTY STOMACH AND TAKE NOTHING ELSE FOR 30 MINUTES. MUST REMAIN UPRIGHT-SEATED OR STANDING. 11/21/16 Liraglutide (Victoza 2-Marc) 18 Mg/Syringe Inj, 1.2 MG SQ 1500 09/02/16 Metoprolol Tartrate (Metoprolol Tartrate) 25 Mg Tablet, 50 MG PO BID 09/02/16 Glimepiride (Glimepiride) 4 Mg Tablet, 4 MG PO DAILY 09/02/16 Sertraline (Zoloft) 50 Mg Tablet, 50 MG PO HS 04/24/16 Losartan Potassium (Losartan Potassium) 25 Mg Tablet, 25 MG PO DAILY 04/24/16 Cholecalciferol (Vitamin D3) (Vitamin D3) 2,000 Unit Capsule, 2000 UNIT PO DAILY 04/23/16 Pantoprazole Sodium (Pantoprazole Sodium) 40 Mg Tablet.dr, 40 MG PO ACB 04/23/16 Simvastatin (Simvastatin) 20 Mg Tablet, 20 MG PO WS 04/23/16 Clonazepam (Clonazepam) 0.5 Mg Tablet, 0.5 MG PO HS Y for PRN ORDERS 05/12/13 Levothyroxine Sodium (Levothyroxine Sodium) 150 Mcg Tablet, 150 MCG PO ACB 05/11/13 Oxycodone Hcl/Acetaminophen (Percocet 7.5/325 Mg Tablet) 1 Tab Tablet, 1 TAB PO Q4-6H Y for PAIN 06/16/12 Potassium Chloride (Potassium Chloride) 20 Meq Tab.prt.sr, 20 MEQ PO DAILY 06/16/12 Bumetanide (Bumex) 2 Mg Tablet, 2 MG PO BID 06/16/12 Spironolactone (Spironolactone) 50 Mg Tablet, 50 MG PO DAILY 03/07/10 Warfarin Sodium (Coumadin) 5 Mg Tablet, 5 MG PO DAILY 03/07/10 Allergies: Coded Allergies: Penicillins (Verified Allergy, Intermediate, HIVES, 11/20/16) REACTION PER H&P DATED 05-05-13 amoxicillin (Verified Allergy, Intermediate, hives, 11/20/16) codeine (Verified Allergy, Intermediate, HIVES, 11/20/16) AND NAUEA metformin (Verified Allergy, Intermediate, NAUSEA & VOMITING, 11/20/16) Iodinated Contrast Media - Oral and (Verified Allergy, Unknown, 11/21/16) meperidine (Verified Allergy, Unknown, HIVES, 11/20/16) PER H&P DATED 05-05-13 morphine (Verified Allergy, Unknown, HEADACHES, 11/20/16) PER H&P DATED 05-05-13 erythromycin base (Verified Adverse Reaction, Intermediate, ABDOMINAL CRAMPS, 11/20/16) hydrocodone (Verified Adverse Reaction, Intermediate, ABDOMINAL CRAMPS, 11/20/16) Uncoded Allergies: ANESTHETICS (Adverse Reaction, Mild, NAUSEA, 04/24/16) Assessment & Plan Problems: (1) Epigastric abdominal pain Status: Acute (2) Nausea & vomiting Qualifiers: Vomiting Intractability: unspecified (3) Hypoxia Status: Acute (4) Chronic combined systolic and diastolic heart failure Status: Chronic (5) Presence of prosthetic heart valve Status: Chronic Assessment & Plan: Mitral valve (6) Atherosclerotic heart disease of [place] coronary artery without angina pectoris Status: Chronic (7) Type 2 diabetes mellitus without complications Status: Chronic (8) Nonrheumatic mitral valve insufficiency Status: Chronic (9) Essential (primary) hypertension Status: Chronic (10) Ischemic cardiomyopathy Status: Chronic (11) Atrial fibrillation Status: Chronic Qualifiers: Atrial fibrillation type: paroxysmal Qualified Codes: I48.0 - Paroxysmal atrial fibrillation (12) Mixed hyperlipidemia Status: Chronic (13) Cardiac pacemaker Status: Chronic (14) nursing home (current) use of anticoagulants Status: Chronic (15) GERD (gastroesophageal reflux disease) (16) Hx of ulcer disease Status: Chronic (17) OA (osteoarthritis) Status: Chronic (18) Obesity Status: Chronic Qualifiers: Obesity type: due to excess calories Obesity severity: morbid Qualified Codes: E66.01 - Morbid (severe) obesity due to excess calories Plan/Intensity of Service Have independently interviewed and examined pt. Chart reviewed. Case discussed with Dr Neff and my SMALL BUSINESS CONSULTANT. Care plan developed with my supervision; agree with above. Been feeling sick for about 1 week - very nauseated and throwing up after eating. Reports episodes of loose stools. Seen in ED twice - first time pt more concerned about fast HR than the N/V - Hx of afib but in sinus. Seen by Dr Bill see and heart status fine. N/V persistent - seen last night in ED with extensive w/u that was negative. Presents to PCP office today - not seeing any change. Reports diffuse ab discomfort. Much more weak in general. At the time of my interview, pt groggy (had IV Phenergan about 30 minutes before). Lungs: decreased CV: regular AB: soft obese nd, BS decreased. MSE: groggy, will answer question with short phrases GEN: looks very tired and washed out. Plan: OBS, IVF for hydration - caution due to underlying CHF, control nausea with Zofran and Phenergan as needed, will try Scopolamine patch, IV Protonix for GI protection and her GERD, Continue Coumadin-monitor INR, Clear liquids- increase as patient able, recheck BMP/CBC/INR in am. DVT Prophylaxis: SCD'S, Coumadin VIKASH PORRAS APRN Nov 21, 2016 13:18 MARY TAYLOR MD Nov 21, 2016 15:29
[2016-11-21 13:51] LABS: BLOOD, URINE TRACE-LYSED (NEGATIVE); COLOR,URINE YELLOW (YELLOW); LEUKOCYTE ESTERASE ,URINE NEGATIVE (NEGATIVE); NITRITE,URINE NEGATIVE (NEGATIVE)
[2016-11-21] MEDS ORDERED: INSULIN REGULAR 100 UNIT/ML SQ ONE (14:00)
[2016-11-21 14:17] LABS: RBC,URINE 0-1 /HPF (0-3); SQUAMOUS EPITHELIAL CELL,UR 0-5; WBC,URINE NONE SEEN /HPF (0-5)
[2016-11-21 14:18] LABS: BACTERIA,URINE 3+ (NEGATIVE); MUCUS,URINE PRESENT
--- NOTE | 2016-11-21 14:31 | NUR ---
COUMADIN CONSULT (Initial): 66 y.o. female with history of a. fib and chronic Warfarin anticoagulation. Home Warfarin dose is 5 mg po daily. Warfarin per pharmacy protocol ordered. goal INR rang= 2 to 3. date INR dose 11/21 2.88 plan: 4 mg Will give Warfarin 4 mg today. no significant drug-drug interactions noted. Pharmacy will continue to monitor and make adjustments accordingly. Thank you for the protocol. [place] Rosario RPh
[2016-11-21] MEDS: PROMETHAZINE 50 MG INJECTION IV PRN (14:40)
--- NOTE | 2016-11-21 14:52 | DI ---
INDICATION: ITS.REASON: Afib, chf PROCEDURE: CHEST 2-VIEWS UPRIGHT (PA \T\ LAT) Encounter: Initial COMPARISON: November 18, 2016 FINDINGS: New trace pleural effusions. Lung [place] are clear. No pneumothorax. Cardiac silhouette remains significantly enlarged with a valve replacement and left pacemaker defibrillator. Prior CABG. Overlying monitoring leads. Mild pulmonary vascular congestion. Impression: Trace effusions and mild pulmonary vascular congestion. No pneumonia. .
--- NOTE | 2016-11-21 14:56 | DI ---
Indication: ITS.REASON: N/V PROCEDURE: KUB W/UPRIGHT: Encounter: Initial Comparison: November 20, 2016 Findings: There is no free air on the upright view. The bowel gas pattern is nonobstructive and nonspecific. Gas is seen in nondilated small and large bowel to the level of the rectum. Moderate stool is seen throughout the colon. Degenerative change in the spine and left hip. Impression: Nonobstructive nonspecific bowel gas pattern. .
[2016-11-21] MEDS ORDERED: DEXTROSE 50% SYRINGE 50ml (Eq. 1 AMP) IV PRN (15:00)
[2016-11-21] MEDS ORDERED: CLONAZEPAM 0.5 MG TABLET PO PRN (15:00)
[2016-11-21] MEDS ORDERED: GLUCOSE ORAL GEL 40% 37.5 G TUBE PO PRN (15:00)
[2016-11-21] MEDS ORDERED: INSULIN REGULAR 100 UNIT/ML SQ PRN (15:00)
[2016-11-21] MEDS ORDERED: WARFARIN 4 MG TABLET PO ONE (16:00)
[2016-11-21] MEDS: SCOPOLAMINE 1.5 MG PATCH TD SCH (16:36)
--- NOTE | 2016-11-21 18:04 | NUR ---
SHIFT SUMMARY VSS. 1L NC O2. UP WITH SBA, VERY SLEEPY AFTER RECEIVING PHENERGAN. SCOPALAMINE PATCH IN PLACE FOR NAUSEA, ZOFRAN AND PHENERGAN ALSO GIVEN. PATIENT ORDERED CLEAR LIQUIDS TO EAT BUT THEN DECIDED SHE WAS NOT HUNGRY. 1/2 NS INFUSING AT 125CC/HR. BED ALARM IN USE, ABLE TO POSITION SELF IN BED.
[2016-11-21] MEDS: 1/2 NS 1,000 ML IV SCH ×2 (19:15→22:01)
--- NOTE | 2016-11-21 19:30 | NUR ---
STATUS PT IS VERY SLEEPY AND HAS A HARD TIME HOLDING A CONVERSATION. SHE HAD RECEIVED PHENERGAN EARLIER TODAY. PT IS DIAPHORETIC AT THIS TIME AND TEMPERATURE 96.9. VITALS STABLE. SHE COMPLAINS OF 10/10 EPIGASTRIC PAIN. THIS RELAYED TO DR VAZQUEZ-SEE PROVIDER NOTIFICATION. WILL CONTINUE TO MONITOR.
[2016-11-21] MEDS ORDERED: KETOROLAC 30mg/ml INJECTION IV ONE (19:45)
[2016-11-21] MEDS ORDERED: MAG-AL + SIM XS 30 ML UDC PO PRN (19:45)
[2016-11-21] MEDS: SERTRALINE 50 MG TABLET PO SCH (20:49)
--- NOTE | 2016-11-21 21:00 | NUR ---
EPIGASTRIC PAIN PT CONTINUES TO HAVE EPIGASTRIC PAIN WHICH SHE RATES 9/10. SHE IS OFFERED MAALOX AND STATES SHE CANNOT TAKE IT DUE TO HER GERD. PT IS GIVEN TORADOL AT THIS TIME THAT WAS ORDERED BY DR VAZQUEZ. SHE IS MORE ALERT THAN AT THE BEGINNING OF SHIFT. SHE STILL COMPLAINS OF NAUSEA. ZOFRAN GIVEN AT THIS TIME WELL. WILL CONTINUE TO MONITOR.
[2016-11-22] VITALS (8 sets, daily range): BP systolic 116–128; BP diastolic 76–93; PULSE 60–101; RESP 14–16; TEMP 95.3–98.2; O2SAT 93–96
[2016-11-22] MEDS: HYDROMORPHONE 2mg/ml INJECTION IV PRN ×2 (00:04→14:41)
--- NOTE | 2016-11-22 00:10 | NUR ---
output encouraged pt to try bathroom, no void in 10 hours. pt also thought she would possibly have bm ( needed stool sample). placed hat in back of toilet, no bm, and did not measure this urine.
--- NOTE | 2016-11-22 00:19 | NUR ---
PAIN GAVE 0.5MG IV DILAUDID FOR 9/10 STABBING EPIGASTRIC PAIN. PT ALSO HAS NAUSEA, TRYING JUST DILAUDID FOR NOW INSTEAD OF BOTH AT THIS TIME, PT WAS SEDATED AT SHIFT CHANGE PER LAST RN.
--- NOTE | 2016-11-22 01:54 | NUR ---
Chart Check 24 hour chart check completed
--- NOTE | 2016-11-22 02:47 | NUR ---
SLEEP PT IV DINGING OCCLUSION. PT REQUESTED EAR PLUGS. PROVIDED.
[2016-11-22] MEDS: PROMETHAZINE 50 MG INJECTION IV PRN (04:50)
--- NOTE | 2016-11-22 05:04 | NUR ---
NAUSEA/SWEATING PT AWAKENED NAUSEATED AND SWEATING THROUGH GOWN FROM HEAD TO SHOULDERS. GAVE 25MG IV PHENERGAN. PT V.S.S. WITH 1LNC. PT DRY HEAVED, THEN LIED SELF BACK DOWN IN BED. BED ALARM ON. WILL CHECK BLOOD SUGAR SOON, PT DENIED FEELING HYPOGLYCEMIC.
[2016-11-22 05:30] LABS: HCT - HEMATOCRIT 44.6 % (36-46); HGB - HEMOGLOBIN 14.3 GM/DL (12-16); MEAN CORPUSCULAR HGB 28.8 UUG (26-34); MEAN CORPUSCULAR HGB CONC(MCHC 32.1 GM/DL (31-37); MEAN CORPUSCULAR VOLUME 89.9 UM3 (80-100); MEAN PLATELET VOLUME 11.1 UM3 (9.4-12.4); RED BLOOD COUNT 4.96 M/MM3 (4.00-5.20); WBC - WHITE BLOOD COUNT 11.4 T/MM3 (4.5-11.0)
[2016-11-22 05:38] LABS: INR 2.82 (0.76-1.04); PROTHROMBIN TIME 30.7 SEC (9.31-12.49)
[2016-11-22 05:46] LABS: ANION GAP 14 MEQ/L (5-15); BUN/CREATININE RATIO 17 RATIO (6-26); CALCIUM 7.9 MG/DL (8.4-10.2); CHLORIDE 101 MEQ/L (98-107); CO2 - CARBON DIOXIDE 27 MEQ/L (22-30); CREATININE 1.3 MG/DL (0.7-1.2); GLOMERULAR FILTRATION RATE 41; GLUCOSE 136 MG/DL (65-110); POTASSIUM 3.9 MEQ/L (3.6-5); SODIUM 142 MEQ/L (134-144)
[2016-11-22] MEDS: LEVOTHYROXINE 150 MCG TABLET PO SCH (05:55)
[2016-11-22 06:21] LABS: BAND NEUTROPHILS # 0.7 T/MM3; EOSINOPHILS # (MANUAL) 0.2 T/MM3 (0-0.5); LYMPHOCYTES # (MANUAL) 2.2 T/MM3 (1-4.8); MONOCYTES # (MANUAL) 1.1 T/MM3 (0-0.8); NEUTROPHILS #(MANUAL)-ABSOLUTE 7.2 T/MM3 (1.8-7.7); TOTAL CELLS COUNTED 100 %
--- NOTE | 2016-11-22 06:25 | NUR ---
STATUS PT STATES NAUSEA IS A LITTLE RELIEVED AFTER THE 25MG PHENERGAN. TOOK THYROID PILL. BLOOD SUGAR WAS 141. THE DIAPHORESIS WASN'T SOMETHING THAT WAS NEW AND V.S.S. REMAINS ON 1L NC. TROPONIN WAS WNL. LOW URINE OUTPUT. HAD ONE VOID SINCE (RIGHT AT) MIDNIGHT, DENIED URGE THIS A.M., THAT ONE VOID WAS NOT MEASURED DUE TO US FOCUSING ON TRYING TO OBTAIN STOOL FOR G.I. PANEL,SHE DID NOT HAVE ANY BM'S. NO EMESIS THIS SHIFT, ONLY DRY HEAVING ONCE.
[2016-11-22] MEDS: PANTOPRAZOLE 40mg INJECTION IV SCH ×2 (08:23→21:11)
[2016-11-22] MEDS: 1/2 NS 1,000 ML IV SCH ×2 (08:24→18:20)
--- NOTE | 2016-11-22 09:38 | NUR ---
WARFARIN CONSULT S: 66 y/o F on warfarin for afib. Home dose is 5 mg PO daily. Goal INR 2-3. O: Date INR Warfarin Dose 11/21 2.88 4 mg 11/22 2.82 PLAN: 4 mg A/P: INR therapeutic. Will order warfarin 4 mg PO x 1 today. No significant drug-drug interactions. Will continue to monitor & make adjustments accordingly. Thank you for the consult. Stephanie Lizarraga, PharmD, BCPS
--- NOTE | 2016-11-22 11:48 | NUR ---
CM CM SPOKE WITH PT SPOUSE, KIMBERLI. HE IS PT CAREGIVER. HE IS UNCLEAR IS THEY WILL NEED HHS. HE IS GIVEN CM CONTACT INFORMATION AND ENCOURAGED TO CONTACT CM IF HHS ARE NEEDED. HE VERBALIZED UNDERSTANDING. CM IN TO VISIT WITH PT AND INTRODUCE HERSELF. PT REPORTS THAT SHE DOES NOT CURRENTLY USE HOME O2. Addendum: 11/22/16 at 1151 by ALICAI IRIZARRY RN Amended: Links added.
[2016-11-22] MEDS ORDERED: WARFARIN 4 MG TABLET PO ONE (12:00)
[2016-11-22] MEDS: SPIRONOLACTONE 50 MG TABLET PO SCH (13:16)
--- NOTE | 2016-11-22 14:00 | NUR ---
TRANSFERRED to inpt status.co of severe abd pain medicated with Dilaudid 0.5 mg sivp.
--- NOTE | 2016-11-22 14:33 | PNPDOC ---
VIKASH PORRAS V CABLE INSTALLER REPAIRER HELPER 11/22/16 1430: Subjective Date DATE: 11/22/16 TIME: 14:27 Subjective Lincoln is seen today laying in bed. She reports that she is still having some nausea and has been dry heaving throughout the day. She has not eaten and only been able to hold down sips of water. She is very drowsy and keeps her eyes closed for most of the exam. She reports epigastric pain to her lower chest and upper left quadrant. She reports that her last bowel movement was on November 20. She reports that it was somewhat loose but was not black or red. She denies being on antibiotics within the past 60 days. She denies chest pain or shortness of air. Nursing reports she has been sleeping all of the day without evidence of acute vomiting. She continues on 1 liter of oxygen without evidence of any respiratory distress. Objective Vital Signs Vital signs Vital Signs Date Time Temp Pulse Resp B/P Pulse Ox O2 Delivery O2 Flow Rate FiO2 11/22/16 13:14 101 14 116/76 95 Nasal Cannula 1.00 11/22/16 08:03 96.9 Height (Feet): 5 Height (Inches): 6.00 Weight (Kilograms): 113.400 General General Appearance: Obese, Orientated x 3, Well Nourished, Cooperative, No Acute Distress Respiratory (Brief) Respiratory: FOUND: clear all [place], equal bilaterally Cardiovascular (Brief) Cardiac: FOUND: other (Paced), regular rate, regular rhythm Abdomen (Brief) Abdominal: FOUND: BS normo active x4, soft, tender (to epigastric and to left upper quadrant) Integumentary (Brief) Integumentary: FOUND: dry, pink, warm Psychiatric (Brief) Psychiatric: FOUND: alert, normal affect, oriented Comments Sedated Laboratory Laboratory Laboratory Tests 11/20/16 19:40 11/21/16 12:54 11/22/16 04:33 Laboratory Tests 11/21/16 12:54 11/22/16 04:33 Assessment & Plan Problems: (1) Drowsiness Status: Acute (2) Epigastric abdominal pain Status: Acute (3) Nausea & vomiting Status: Acute Qualifiers: Vomiting Intractability: unspecified (4) Hypoxia Status: Acute (5) Chronic combined systolic and diastolic heart failure Status: Chronic (6) Presence of prosthetic heart valve Status: Chronic Assessment & Plan: Mitral valve (7) Atherosclerotic heart disease of [place] coronary artery without angina pectoris Status: Chronic (8) Type 2 diabetes mellitus without complications Status: Chronic (9) Nonrheumatic mitral valve insufficiency Status: Chronic (10) Essential (primary) hypertension Status: Chronic (11) Ischemic cardiomyopathy Status: Chronic (12) Atrial fibrillation Status: Chronic Qualifiers: Atrial fibrillation type: paroxysmal Qualified Codes: I48.0 - Paroxysmal atrial fibrillation (13) Mixed hyperlipidemia Status: Chronic (14) Cardiac pacemaker Status: Chronic (15) buttermaker continuous churn (current) use of anticoagulants Status: Chronic (16) GERD (gastroesophageal reflux disease) (17) Hx of ulcer disease Status: Chronic (18) OA (osteoarthritis) Status: Chronic (19) Obesity Status: Chronic Qualifiers: Obesity type: due to excess calories Obesity severity: morbid Qualified Codes: E66.01 - Morbid (severe) obesity due to excess calories Plan/Intensity of Service 11/22/16 Obtain an ABG and ammonia level to rule out further etiology for significant drowsiness Will discontinue the Dilaudid and Phenergan for possible contribution to drowsiness. In light of continued Epigastric pain and nausea will continue Protonix 40mg IV twice daily, Zofaran as needed and will also add Reglan 5mg IV every 6 hours scheduled. If no improvement, we will consider consulting general surgery. She is still on 1L nasal cannula to maintain her oxygen saturations. Suspicion that drowsiness could be related to IV medications. We will try to wean off of oxygen as she is able. Continue Coumadin for her cardiac co-morbidities, her INR is within range at 2.82, dosing management by pharmacy. Continue to monitor blood sugars, fasting BGM 141. Continue with sliding scale insulin. Continue to monitor routine labs. Creatinine did slightly increase to 1.3 today. This could be secondary to administration of Toradol. Will recheck CBC and BMP tomorrow morning to follow blood counts, renal function and electrolytes Continue SCDs for additional DVT prophylaxis. DVT Prophylaxis: SCD'S Code Status Full Code Hospital Course Summary Disclaimer The hospital course summary below is not to be considered part of the above Progress Note. Hospital Course Summary 11/21/16 Admit patient to outpatient observation under care of Dr. Taylor for nausea, vomiting and epigastric pain. Will obtain the following laboratory studies on admission, CBC, CMP, magnesium, hemoglobin A1c, lipase, CRP Will obtain a urinalysis on admission Will also obtain GI panel. If patient has any loose stools. Check INR given chronic anticoagulation. Will consult pharmacy for Coumadin dosing management Place patient on cardiac telemetry to monitor for dysrhythmias. Given significant cardiac history. KUB with upright as well as two-view chest x-ray. Given mild hypoxia on admission. Will continue with oxygen to maintain adequate saturations. Zofran and Phenergan as needed for nausea. Given significant epigastric tenderness. Will place patient on scheduled Protonix 40 milligrams IV twice a day She may have clear liquid only if her nausea is controlled Will monitor Accuchecks with meals and at bedtime SCDs to bilateral lower ext for DVT prophylaxis Recheck CBC and BMP tomorrow morning to follow blood counts, renal function and electrolytes Once home medications are reconciled will order appropriate medications Will discuss further plan of care with attending, Dr Taylor At time of discharge medical care is to return to PCP Dr Neff 11/22/16 Obtain an ABG and ammonia level to rule out further etiology for significant drowsiness Will discontinue the Dilaudid and Phenergan for possible contribution to drowsiness. In light of continued Epigastric pain and nausea will continue Protonix 40mg IV twice daily, Zofaran as needed and will also add Reglan 5mg IV every 6 hours scheduled. If no improvement, we will consider consulting general surgery. She is still on 1L nasal cannula to maintain her oxygen saturations. Suspicion that drowsiness could be related to IV medications. We will try to wean off of oxygen as she is able. Continue Coumadin for her cardiac co-morbidities, her INR is within range at 2.82, dosing management by pharmacy. Continue to monitor blood sugars, fasting BGM 141. Continue with sliding scale insulin. Continue to monitor routine labs. Creatinine did slightly increase to 1.3 today. This could be secondary to administration of Toradol. Will recheck CBC and BMP tomorrow morning to follow blood counts, renal function and electrolytes Continue SCDs for additional DVT prophylaxis. MIKA MCGUIRE MD 11/22/16 5357: Assessment & Plan Assessment 11/22/2016-I reviewed this chart, the patient history, and the CABLE INSTALLER REPAIRER HELPER's/PA's documented findings as above. We discussed and formulated the assessment and plan as above with the additions below.-Dr. Mcguire The patient was seen this evening accompanied by her . She is drowsy but arousable. She is oriented 3. She feels very nauseated but has not vomited today. While was in talking with her she asked her to help her sit up so she could vomit but ultimately did not vomit or retch. She complains of pain in her epigastrium and lower abdomen. Prior to admission she had nausea, vomiting and some diarrhea. She did not vomit any blood or coffee-ground emesis. She does not feel constipated. She does feel mildly short of breath and is not on oxygen at home. Ammonia level was tested and was elevated at 61. She does not have any history of liver disease. Liver enzymes are not significantly elevated. CT abdomen did not show any specific problems with the liver or gallbladder. Her also reports that she's been sweating but has not had fever. She does not have a underlying history of diabetic gastroparesis. The patient's states that she fell about 2 weeks ago and hit her head. She had a CT head done on 11/11/2016 and repeated on 11/18/2016 and neither of those showed any acute abnormalities. She has eaten very little in the past 3 or 4 days. She is diabetic. On exam she is drowsy but arousable. Vital signs are stable and she is on 1 L of oxygen with O2 sat of 94%. Weight is up 3 kg since admission and is currently 113 kg. She is oriented 3. HEENT reveals sclerae to be anicteric and oropharynx is moist. Neck is supple. Chest is clear to auscultation. Cardiovascular reveals a regular rate and rhythm without murmur. Abdomen is soft with mild epigastric and lower abdominal tenderness. Bowel sounds are present. No significant tympany. Extremities are free of edema. Impression Somnolence of uncertain etiology, possibly secondary to medications with Dilaudid and Phenergan. These are on hold. Ammonia level is also elevated of uncertain cause. Will recheck tomorrow and if still elevated start lactulose either orally or per enema. Patient does not think she can take it orally tonight due to nausea. Possible diabetic gastroparesis-start Reglan 10 mg IV scheduled 4 times a day Diabetes-continue to monitor [id number] Diaphoresis without signs of infection-check TSH, blood sugar is okay Consider concussion as cause of nausea and vomiting since she hit her head 2 weeks ago Continue proton pump inhibitor for abdominal pain Consider surgical consult if abdominal pain not improving. We'll check magnesium, phosphorus and CPK. Recheck liver enzymes tomorrow. Greater than 45 minutes of time spent seeing and evaluating the patient and reviewed the chart and talking with the patient's . DVT Prophylaxis: Coumadin VIKASH PORRAS APRN Nov 22, 2016 14:30 MIKA MCGUIRE MD Nov 22, 2016 20:59
[2016-11-22] MEDS ORDERED: METOCLOPRAMIDE 10mg/2ml INJECTION IV SCH (15:00)
--- NOTE | 2016-11-22 17:44 | NUR ---
resting in bed states her pain is a 6/10 more awake conversing with family members. is cool and clammy at times vs stable bgm 146. continue to observe at present.
--- NOTE | 2016-11-22 18:43 | NUR ---
shift status hr is 59 sinus ,gets cool and clammy intermittently takes very little po takes a few ice chips has a flat affect. has voided only once this shift no bms has had some dry heaves but no emesis. bed alarm is on. hob elevated o2 is at 1 liter.
--- NOTE | 2016-11-22 19:05 | NUR ---
assited up to bsc voided 2oocc of dark su colored urine. very sweaty bed linens changed. sat up at edge of bed at bedside.
[2016-11-22] MEDS ORDERED: ONDANSETRON 4mg/2ml INJECTION IV PRN (20:30)
[2016-11-22] MEDS ORDERED: BISACODYL 10 MG SUPPOSITORY RECTALLY ONE (20:45)
[2016-11-22 20:49] LABS: CK - CPK 57 U/L (30-135); PHOSPHORUS 3.9 MG/DL (2.5-4.5)
[2016-11-22] MEDS: SERTRALINE 50 MG TABLET PO SCH (21:12)
[2016-11-22] MEDS: METOCLOPRAMIDE 10mg/2ml INJECTION IV SCH (21:12)
--- NOTE | 2016-11-22 23:02 | NUR ---
STATUS. PT WAS SEEN BY DR WHITTAKER AROUND 2000HR. AT BEDSIDE. PT ALERT AND ORIENTED. SHE KEEP DOZING OFF. DR REQUESTED THE PT TO BE MOVED TO RM 144 FOR VISUAL OBSERVATION BY STAFFS. NEW ORDERS NOTED. PT WAS BLADDER SCANNED AND DR NOTIFIED ABT 221ML RESIDUAL. BLOOD GLUCOSE WAS 157. DR WHITTAKER NOTIFIED. OK WITH HOLDING THE SLIDING SCALE INSULIN TONIGHT. PT ALSO GIVEN DULCOLAX SUPPOSITORY FOR CONSTIPATION. WILL CONTINUE TO MONITOR.
[2016-11-22] MEDS: ONDANSETRON 4mg/2ml INJECTION IV PRN (23:34)
[2016-11-23] VITALS: BP 124/88; PULSE 60; RESP 20; TEMP 95.9; O2SAT 92
--- NOTE | 2016-11-23 | NUR ---
PRN PT WAS GIVEN IV ZOFRAN PER HER REQUEST. SITTING ON THE BED. WILL CONTINUE TO MONITOR.
--- NOTE | 2016-11-23 02:31 | NUR ---
STATUS. PT HAS NOT VOIDED THIS SHIFT. BLADDER SCANNED. PT HOLDING 352ML OF URINE. HAS BEEN ON THE COMMODE TWICE BUT DIDN'T VOID. WILL CONTINUE TO MONITOR.
[2016-11-23] MEDS: METOCLOPRAMIDE 10mg/2ml INJECTION IV SCH ×4 (03:54→21:30)
[2016-11-23 05:38] LABS: HCT - HEMATOCRIT 44.4 % (36-46); HGB - HEMOGLOBIN 14.7 GM/DL (12-16); MEAN CORPUSCULAR HGB 28.9 UUG (26-34); MEAN CORPUSCULAR HGB CONC(MCHC 33.1 GM/DL (31-37); MEAN CORPUSCULAR VOLUME 87.2 UM3 (80-100); MEAN PLATELET VOLUME 11.4 UM3 (9.4-12.4); RED BLOOD COUNT 5.09 M/MM3 (4.00-5.20); WBC - WHITE BLOOD COUNT 13.5 T/MM3 (4.5-11.0)
[2016-11-23] MEDS: LEVOTHYROXINE 150 MCG TABLET PO SCH (05:38)
[2016-11-23 05:39] LABS: AMMONIA 92 UMOL/L (9-33)
[2016-11-23] MEDS: 1/2 NS 1,000 ML IV SCH ×2 (05:39→16:49)
[2016-11-23 05:58] LABS: INR 4.34 (0.76-1.04); PROTHROMBIN TIME 47.3 SEC (9.31-12.49)
[2016-11-23 06:07] LABS: ALBUMIN 3.8 G/DL (3.5-5.0); ALBUMIN/GLOBULIN RATIO 1.2 RATIO (1.1-2.2); ALKALINE PHOSPHATASE 112 U/L (38-126); ALT (SGPT) 520 U/L (9-52); ANION GAP 16 MEQ/L (5-15); BUN/CREATININE RATIO 27 RATIO (6-26); CALCIUM 7.5 MG/DL (8.4-10.2); CHLORIDE 102 MEQ/L (98-107); CO2 - CARBON DIOXIDE 20 MEQ/L (22-30); CREATININE 1.1 MG/DL (0.7-1.2); GLOMERULAR FILTRATION RATE 50; GLUCOSE 199 MG/DL (65-110); MAGNESIUM 2.5 MG/DL (1.6-2.3); PHOSPHORUS 3.6 MG/DL (2.5-4.5); POTASSIUM 3.7 MEQ/L (3.6-5); SODIUM 138 MEQ/L (134-144)
--- NOTE | 2016-11-23 06:08 | NUR ---
PT SLEEPING AT THE MOMENT. PT IS ALERT AND ORIENTED. HAS BEEN UP SEVERAL TIMES TO SIT ON THE COMMODE. PT COMPLAINED OF NAUSEA. NAUSEA MEDICATION WAS GIVEN SEVERAL TIMES THIS SHIFT. ASSIST X1 TO THE COMMODE. PT WAS GIVEN SUPPOSITORY X1 PER DR'S ORDER. HAD SMALL BMS WITH LITTLE URINE. GI PANEL CANCELLED BY LAB BECAUSE THE STOOL WAS FORMED. PT ON CLEAR LIQUID THAT SHE IS COMPLIANT WITH. PT CONTINUES ON IV FLUIDS.
[2016-11-23 06:13] LABS: AST (SGOT) 944 U/L (14-36)
[2016-11-23 06:22] LABS: BAND NEUTROPHILS # 0.5 T/MM3; LYMPHOCYTES # (MANUAL) 0.7 T/MM3 (1-4.8); MONOCYTES # (MANUAL) 0.8 T/MM3 (0-0.8); NEUTROPHILS #(MANUAL)-ABSOLUTE 11.5 T/MM3 (1.8-7.7); TOTAL CELLS COUNTED 100 %
[2016-11-23 06:23] LABS: ANISOCYTOSIS 1+
--- NOTE | 2016-11-23 07:00 | NUR ---
BEGINNING OF SHIFT REPORT RECEIVED FROM JUAREZ MAN. PT CURRENTLY SLEEPING. NIGHT RN REPORTS DR WILL BE IN THIS AM TO CHECK ON PT, PT WAS ABLE TO PASS A SMALL AMOUNT OF SOFT STOOL REPORTED BY NIGHT RN, WBC COUNT IS ELEVATED, WELL INR, WILL DISCUSS WITH DR WHITTAKER FURTHER TREATMENT OPTIONS.
--- NOTE | 2016-11-23 07:31 | NUR ---
COUMADIN CONSULT (Recurring): Today's INR = 4.34. Will give NO Warfarin today. Will continue to monitor & make adjustments accordingly. Thank you.
[2016-11-23 08:00] VITALS: BP 130/83; PULSE 69; RESP 19; O2SAT 95
--- NOTE | 2016-11-23 08:40 | PNPDOC ---
Subjective Date DATE: 11/23/16 TIME: 08:17 Subjective The patient was seen in her room this morning. Her is not yet present. She states she feels a little bit better today. She had several bowel movements after suppository. She states her abdominal pain is better. She has mild shortness of breath. Her nausea is better. She does not think she can take the lactulose orally and would rather try an enema. Objective Vital Signs Vital signs Vital Signs Date Time Temp Pulse Resp B/P Pulse Ox O2 Delivery O2 Flow Rate FiO2 11/23/16 00:00 95.9 60 20 124/88 92 Nasal Cannula 1.00 GEN-not is somnolent as yesterday, oriented 3, appears ill HEENT-sclera mildly icteric, pupils are equal, oropharynx is dry NECK-supple CV-regular rate and rhythm CHEST-very minimal basilar crackles otherwise clear ABD-soft, obese, nontender, nondistended, decreased bowel sounds -no [place] EXT-no edema NEURO-mildly somnolent but oriented 3 and no focal deficits SKIN-warm and dry today. No rashes Height (Feet): 5 Height (Inches): 6.00 Weight (Kilograms): 113.400 Laboratory Laboratory Item Value Date Time Prothromb Time International Ratio 4.34 H 11/23/16 0528 Prothromb Time International Ratio 2.82 H 11/22/16 0433 Prothromb Time International Ratio 2.88 H 11/21/16 1254 Total Bilirubin 2.40 MG/DL H 11/23/16 0426 Aspartate Amino Transf (AST/SGOT) 944 U/L H # 11/23/16 0426 Alanine Aminotransferase (ALT/SGPT) 520 U/L H # 11/23/16 0426 Alkaline Phosphatase 112 U/L # 11/23/16 0426 Ammonia 92 UMOL/L H 11/23/16 0426 Ammonia 61 UMOL/L H 11/22/16 1506 Total Bilirubin 1.30 MG/DL 11/21/16 1254 Aspartate Amino Transf (AST/SGOT) 40 U/L H 11/21/16 1254 Alanine Aminotransferase (ALT/SGPT) 42 U/L 11/21/16 1254 Alkaline Phosphatase 78 U/L 11/21/16 1254 Total Creatine Kinase 57 U/L 4/5/17 1932 Thyroid Stimulating Hormone (TSH) 15.20 MIU/L H 11/20/161931 Laboratory Tests 11/21/16 12:54 11/22/16 04:33 11/23/16 04:26 Laboratory Tests 11/21/16 12:54 11/22/16 04:33 11/23/16 04:26 Assessment & Plan Problems: (1) Drowsiness Status: Acute (2) Epigastric abdominal pain Status: Acute (3) Nausea & vomiting Status: Acute Qualifiers: Vomiting Intractability: unspecified (4) Hypoxia Status: Acute (5) Chronic combined systolic and diastolic heart failure Status: Chronic (6) Presence of prosthetic heart valve Status: Chronic Assessment & Plan: Mitral valve (7) Atherosclerotic heart disease of [place] coronary artery without angina pectoris Status: Chronic (8) Type 2 diabetes mellitus without complications Status: Chronic (9) Nonrheumatic mitral valve insufficiency Status: Chronic (10) Essential (primary) hypertension Status: Chronic (11) Ischemic cardiomyopathy Status: Chronic (12) Atrial fibrillation Status: Chronic Qualifiers: Atrial fibrillation type: paroxysmal Qualified Codes: I48.0 - Paroxysmal atrial fibrillation (13) Mixed hyperlipidemia Status: Chronic (14) Cardiac pacemaker Status: Chronic (15) correction (current) use of anticoagulants Status: Chronic (16) GERD (gastroesophageal reflux disease) (17) Hx of ulcer disease Status: Chronic (18) OA (osteoarthritis) Status: Chronic (19) Obesity Status: Chronic Qualifiers: Obesity type: due to excess calories Obesity severity: morbid Qualified Codes: E66.01 - Morbid (severe) obesity due to excess calories Assessment Impression/plan Elevated transaminases and bilirubin, new since admission. Etiology unknown. - Check gallbladder liver sonogram, hepatitis panel, CMV, EBV, HIV, GI panel Elevated ammonia with mild hepatic encephalopathy -start lactulose enema. Recent nausea, vomiting, diarrhea -check GI panel Hold Protonix as it can sometimes cause elevated liver enzymes Possible diabetic gastroparesis-continue Reglan 10 mg IV scheduled 4 times a day Diabetes-continue to monitor [id number]-dose sliding scale insulin Leukocytosis -without fever-check blood cultures, urinalysis, chest x-ray, GI panel, lactate Diaphoresis without signs of infection Consider concussion as cause of nausea and vomiting since she hit her head 2 weeks ago Prosthetic mitral valve on chronic anticoagulation Elevated INR in the patient on Coumadin-supratherapeutic INR likely related to acute liver enzyme elevation-discussed with pharmacy and we'll hold Coumadin and continue daily INR Coronary artery disease Ischemic cardiomyopathy paroxysmal atrial fibrillation Greater than 45 minutes of time was spent seeing and evaluating the patient today. Plan/Intensity of Service 11/22/16 Obtain an ABG and ammonia level to rule out further etiology for significant drowsiness Will discontinue the Dilaudid and Phenergan for possible contribution to drowsiness. In light of continued Epigastric pain and nausea will continue Protonix 40mg IV twice daily, Zofaran as needed and will also add Reglan 5mg IV every 6 hours scheduled. If no improvement, we will consider consulting general surgery. She is still on 1L nasal cannula to maintain her oxygen saturations. Suspicion that drowsiness could be related to IV medications. We will try to wean off of oxygen as she is able. Continue Coumadin for her cardiac co-morbidities, her INR is within range at 2.82, dosing management by pharmacy. Continue to monitor blood sugars, fasting BGM 141. Continue with sliding scale insulin. Continue to monitor routine labs. Creatinine did slightly increase to 1.3 today. This could be secondary to administration of Toradol. Will recheck CBC and BMP tomorrow morning to follow blood counts, renal function and electrolytes Continue SCDs for additional DVT prophylaxis. DVT Prophylaxis: Coumadin Code Status Full Code Hospital Course Summary Disclaimer The hospital course summary below is not to be considered part of the above Progress Note. Hospital Course Summary 11/21/16 Admit patient to outpatient observation under care of Dr. Taylor for nausea, vomiting and epigastric pain. Will obtain the following laboratory studies on admission, CBC, CMP, magnesium, hemoglobin A1c, lipase, CRP Will obtain a urinalysis on admission Will also obtain GI panel. If patient has any loose stools. Check INR given chronic anticoagulation. Will consult pharmacy for Coumadin dosing management Place patient on cardiac telemetry to monitor for dysrhythmias. Given significant cardiac history. KUB with upright as well as two-view chest x-ray. Given mild hypoxia on admission. Will continue with oxygen to maintain adequate saturations. Zofran and Phenergan as needed for nausea. Given significant epigastric tenderness. Will place patient on scheduled Protonix 40 milligrams IV twice a day She may have clear liquid only if her nausea is controlled Will monitor Accuchecks with meals and at bedtime SCDs to bilateral lower ext for DVT prophylaxis Recheck CBC and BMP tomorrow morning to follow blood counts, renal function and electrolytes Once home medications are reconciled will order appropriate medications Will discuss further plan of care with attending, Dr Taylor At time of discharge medical care is to return to PCP Dr Neff 11/22/16 Obtain an ABG and ammonia level to rule out further etiology for significant drowsiness Will discontinue the Dilaudid and Phenergan for possible contribution to drowsiness. In light of continued Epigastric pain and nausea will continue Protonix 40mg IV twice daily, Zofaran as needed and will also add Reglan 5mg IV every 6 hours scheduled. If no improvement, we will consider consulting general surgery. She is still on 1L nasal cannula to maintain her oxygen saturations. Suspicion that drowsiness could be related to IV medications. We will try to wean off of oxygen as she is able. Continue Coumadin for her cardiac co-morbidities, her INR is within range at 2.82, dosing management by pharmacy. Continue to monitor blood sugars, fasting BGM 141. Continue with sliding scale insulin. Continue to monitor routine labs. Creatinine did slightly increase to 1.3 today. This could be secondary to administration of Toradol. Will recheck CBC and BMP tomorrow morning to follow blood counts, renal function and electrolytes Continue SCDs for additional DVT prophylaxis. MIKA WHITTAKER MD Nov 23, 2016 08:30
[2016-11-23] MEDS: SPIRONOLACTONE 50 MG TABLET PO SCH (08:47)
[2016-11-23] MEDS: LACTULOSE RECTALLY SCH ×2 (09:21→13:42)
--- NOTE | 2016-11-23 09:45 | NUR ---
UPDATE AFTER 1ST DOSE OF RECTAL LACTULOSE PT PASSED ONLY A VERY SMALL AMOUNT OF SOFT STOOL. PT COMPLAINS OF ABD PAIN. ABD IS STILL DISTENDED AND TENDER TO R AND L UPPER QUADRANTS, WILL CONTINUE TO MONITOR AND WILL ADMINISTERED 2ND DOSE OF LACTULOSE AT 1330.
[2016-11-23] MEDS: HYDROMORPHONE 2mg/ml INJECTION IV PRN (12:25)
--- NOTE | 2016-11-23 15:06 | NUR ---
UPDATE PT CURRENTLY SLEEPING. DR WHITTAKER NOTIFIED AT 1440 THAT PTS 2ND RECTAL LACTULOSE TREATMENT ONLY RESULTED IN A SMALL AMOUNT OF SOFT STOOL. WILL CONTINUE TO MONITOR PT.
[2016-11-23 16:22] VITALS: BP 137/93; PULSE 69; RESP 16; TEMP 97.4; O2SAT 93
[2016-11-23 18:20] LABS: BLOOD, URINE NEGATIVE (NEGATIVE); COLOR,URINE YELLOW (YELLOW); LEUKOCYTE ESTERASE ,URINE NEGATIVE (NEGATIVE); NITRITE,URINE NEGATIVE (NEGATIVE)
--- NOTE | 2016-11-23 18:22 | NUR ---
UPDATE PT WAS ABLE TO HAVE A SMALL BOWEL MOVEMENT AFTER 2 ROUNDS OF RECTAL LACTULOSE. WE WERE UNABLE TO SEND STOOL SAMPLE DUE TO BEING CONTAMINATED, HOWEVER A UA SAMPLE WAS SENT. PT TRIED EATING JELLOW BEFORE DINNER TIME, PT DID NOT VOMIT BUT BECAME NAUSEOUS AND DID NOT FINISH IT. PT RECEIVED 1 DOSE OF DILAUDID TODAY ORDERED FOR PAIN, HAS NOT COMPLAINED OF PAIN EVER SINCE THIS AFTERNOON. WILL CONTINUE TO MONITOR.
[2016-11-23] MEDS: ONDANSETRON 4mg/2ml INJECTION IV PRN (18:40)
[2016-11-23] MEDS: SERTRALINE 50 MG TABLET PO SCH (21:30)
[2016-11-24 00:14] VITALS: BP 137/93; PULSE 61; RESP 18; TEMP 96.1; O2SAT 93
[2016-11-24] MEDS: 1/2 NS 1,000 ML IV SCH (03:02)
[2016-11-24] MEDS: METOCLOPRAMIDE 10mg/2ml INJECTION IV SCH ×4 (03:02→20:38)
[2016-11-24] MEDS: LEVOTHYROXINE 150 MCG TABLET PO SCH (06:25)
[2016-11-24 06:47] LABS: HCT - HEMATOCRIT 39.7 % (36-46); HGB - HEMOGLOBIN 12.7 GM/DL (12-16); MEAN CORPUSCULAR HGB 28.4 UUG (26-34); MEAN CORPUSCULAR VOLUME 88.8 UM3 (80-100); MEAN PLATELET VOLUME 11.3 UM3 (9.4-12.4); RED BLOOD COUNT 4.47 M/MM3 (4.00-5.20); WBC - WHITE BLOOD COUNT 9.7 T/MM3 (4.5-11.0)
[2016-11-24 06:56] LABS: ALBUMIN 3.4 G/DL (3.5-5.0); ALBUMIN/GLOBULIN RATIO 1.1 RATIO (1.1-2.2); ALKALINE PHOSPHATASE 113 U/L (38-126); ALT (SGPT) 434 U/L (9-52); ANION GAP 13 MEQ/L (5-15); AST (SGOT) 604 U/L (14-36); BUN/CREATININE RATIO 25 RATIO (6-26); CALCIUM 7.3 MG/DL (8.4-10.2); CHLORIDE 101 MEQ/L (98-107); CO2 - CARBON DIOXIDE 25 MEQ/L (22-30); GLOMERULAR FILTRATION RATE 56; GLUCOSE 112 MG/DL (65-110); POTASSIUM 3.3 MEQ/L (3.6-5); SODIUM 139 MEQ/L (134-144); TOTAL PROTEIN 6.4 G/DL (6.3-8.2)
[2016-11-24 07:05] LABS: BAND NEUTROPHILS # 0.6 T/MM3; EOSINOPHILS # (MANUAL) 0.3 T/MM3 (0-0.5); LYMPHOCYTES # (MANUAL) 1.7 T/MM3 (1-4.8); MONOCYTES # (MANUAL) 0.5 T/MM3 (0-0.8); NEUTROPHILS #(MANUAL)-ABSOLUTE 6.6 T/MM3 (1.8-7.7); TOTAL CELLS COUNTED 100 %
[2016-11-24 07:06] LABS: ANISOCYTOSIS 1+
[2016-11-24 07:13] LABS: INR 3.64 (0.76-1.04); PROTHROMBIN TIME 39.7 SEC (9.31-12.49)
--- NOTE | 2016-11-24 07:31 | NUR ---
SHIFT REPORT: PT IS A&OX3, WAS IN PT'S ROOM WHEN I FIRST CAME ON SHIFT, BUT LEFT AROUND 20:00. BGM'S WERE IN RANGE. PT HAD 1 LIQUID STOOL AND A LARGE VOID DURING THE NIGHT. PT HAD NAUSEA EARLY IN MY SHIFT, SCHEDULED MEDICATION GIVEN. FREQUENT ROUNDING. CALL LIGHT WITHIN REACH, BED ALARM ON.
[2016-11-24 08:00] VITALS: RESP 17
--- NOTE | 2016-11-24 08:32 | NUR ---
WARFARIN CONSULT 66 y/o F on warfarin for afib. Hx of Prothetic Mitral Valve (Tissue). Warfarin home dose is 5 mg PO daily. Goal INR 2-3. Date INR Warfarin Dose 11/21 2.88 4 mg 11/22 2.82 4 mg 11/23 4.34 HOLD Dose 11/24 3.64 Will HOLD Dose again today. No significant drug-drug interactions noted. Will continue to monitor & make adjustments accordingly. Thank you for the consult.
[2016-11-24 08:40] VITALS: BP 129/86; PULSE 61; RESP 17; TEMP 96.9; O2SAT 94
[2016-11-24] MEDS: HYDROMORPHONE 2mg/ml INJECTION IV PRN ×2 (09:42→15:24)
--- NOTE | 2016-11-24 10:11 | PNPDOC ---
Subjective Date DATE: 11/24/16 TIME: 09:50 Subjective Mrs. Aleman told the nurse earlier this morning that her appetite was better and she wanted to try more than clear liquids. She stated her abdominal pain was a 0 out of 10. When I came to see the patient shortly after she stated that she was nauseated again. She stated she was having a lot of abd pain. She had not yet eaten her clear liquid breakfast. She also complained of feeling short of breath. She denies any pain elsewhere. She points to her lower abdomen as the area of pain. Her mouth feels dry. She had several loose stools yesterday and at least one today. She is urinating without difficulties. Overall, she states she is not feeling much better. She did state she was chronically on Protonix, so I don't think this is the cause of her liver enzyme elevation. Objective Vital Signs Vital signs Vital Signs Date Time Temp Pulse Resp B/P Pulse Ox O2 Delivery O2 Flow Rate FiO2 11/24/16 09:42 18 11/24/16 08:40 96.9 61 129/86 94 Nasal Cannula 1.00 Weight on admission was 110 kg and is now 116 kg GEN-alert, oriented, mild distress from pain HEENT-sclera anicteric, oropharynx is mildly dry NECK-supple CV-regular rate and rhythm, prosthetic click present CHEST-clear to auscultation anteriorly ABD-soft, tender throughout but no rebound or guarding, bowel sounds are present , no tympany -no Almanza EXT-no edema NEURO-more alert than she had been, no focal deficits SKIN-warm and dry without rashes Height (Feet): 5 Height (Inches): 6.00 Weight (Kilograms): 116.000 Laboratory Laboratory Item Value Date Time Prothromb Time International Ratio 3.64 H 11/24/16 0511 Prothromb Time International Ratio 4.34 H 11/23/16 0528 Prothromb Time International Ratio 2.82 H 11/22/16 0433 Prothromb Time International Ratio 2.88 H 11/21/16 1254 Total Bilirubin 2.00 MG/DL H 11/24/16 0511 Magnesium Level 2.5 MG/DL H # 11/23/16 0426 Total Bilirubin 1.30 MG/DL 11/21/16 1254 Aspartate Amino Transf (AST/SGOT) 604 U/L H 11/24/16 0511 Alanine Aminotransferase (ALT/SGPT) 434 U/L H 11/24/16 0511 Aspartate Amino Transf (AST/SGOT) 944 U/L H # 11/23/16 0426 Alanine Aminotransferase (ALT/SGPT) 520 U/L H # 11/23/16 0426 Total Bilirubin 2.40 MG/DL H 11/23/16 0426 Aspartate Amino Transf (AST/SGOT) 40 U/L H 11/21/16 1254 Alanine Aminotransferase (ALT/SGPT) 42 U/L 11/21/16 1254 Ammonia 43 UMOL/L H 11/24/16 0510 Ammonia 92 UMOL/L H 11/23/16 0426 Ammonia 61 UMOL/L H 11/22/16 1506 Laboratory Tests 11/23/16 04:26 11/24/16 05:11 Laboratory Tests 11/23/16 04:26 11/24/16 05:11 HIV is negative Hepatitis panel, CMV, EBV, HSV testing are all pending Microbiology Microbiology Microbiology Date/Time Source Procedure Growth Status 11/23/16 08:38 Peripheral/Iv Start Blood Culture - Preliminary NO GROWTH AFTER 24 HOURS Resulted 11/23/16 08:34 Peripheral/Iv Start Blood Culture - Preliminary NO GROWTH AFTER 24 HOURS Resulted GI panel is negative Assessment & Plan Problems: (1) Epigastric abdominal pain Status: Acute (2) Nausea & vomiting Status: Acute Qualifiers: Vomiting Intractability: unspecified (3) Hypoxia Status: Acute (4) Chronic combined systolic and diastolic heart failure Status: Chronic (5) Presence of prosthetic heart valve Status: Chronic Assessment & Plan: Mitral valve (6) Atherosclerotic heart disease of [place] coronary artery without angina pectoris Status: Chronic (7) Type 2 diabetes mellitus without complications Status: Chronic (8) Nonrheumatic mitral valve insufficiency Status: Chronic (9) Essential (primary) hypertension Status: Chronic (10) Ischemic cardiomyopathy Status: Chronic (11) Atrial fibrillation Status: Chronic Qualifiers: Atrial fibrillation type: paroxysmal Qualified Codes: I48.0 - Paroxysmal atrial fibrillation (12) Mixed hyperlipidemia Status: Chronic (13) Cardiac pacemaker Status: Chronic (14) watermelon harvesting supervisor (current) use of anticoagulants Status: Chronic (15) GERD (gastroesophageal reflux disease) (16) Hx of ulcer disease Status: Chronic (17) OA (osteoarthritis) Status: Chronic (18) Obesity Status: Chronic Qualifiers: Obesity type: due to excess calories Obesity severity: morbid Qualified Codes: E66.01 - Morbid (severe) obesity due to excess calories (19) Encephalopathy Assessment 11/24/2016 Impression/plan Acutely Elevated transaminases and bilirubin-improved, etiology still unknown. Liver sonogram showed fatty liver and enlargement of the liver, but no other abnormalities. hepatitis panel, CMV, EBV, are all pending. GI panel is negative. Elevated ammonia with mild hepatic encephalopathy -improved post lactulose enemas. Monitor at this time. No further lactulose for now as it may be contributing to abdominal discomfort Abdominal pain -CT abdomen prior to admission showed no significant abnormalities other than an enlarged right inguinal node. Check KUB today. Hypoxia -check chest x-ray today, chest x-ray yesterday showed cardiomegaly and official report is pending Recent nausea, vomiting-improving Possible diabetic gastroparesis-continue Reglan 10 mg IV scheduled 4 times a day Diabetes-continue to monitor Fyfp-Hthnm-uah-dose sliding scale insulin Leukocytosis -without fever-improved today. Blood cultures negative to date. Urinalysis negative. GI panel negative. The patient is not on antibiotics. Diaphoresis without signs of infection-improved Consider concussion as cause of nausea and vomiting since she hit her head 2 weeks ago Prosthetic mitral valve on chronic anticoagulation Elevated INR in the patient on Coumadin-supratherapeutic INR yesterday, likely related to acute liver enzyme elevation-discussed with pharmacy yesterday and Coumadin held. INR has improved today. Coronary artery disease Ischemic cardiomyopathy paroxysmal atrial fibrillation GERD with history of ulcer-restart Protonix, the patient states she had been taking this chronically. It is doubtful that it contributed to elevated liver enzymes. Greater than 45 minutes of time was spent seeing and evaluating the patient today. DVT Prophylaxis: Coumadin Code Status Full Code Hospital Course Summary Disclaimer The hospital course summary below is not to be considered part of the above Progress Note. Hospital Course Summary 11/21/16 Admit patient to outpatient observation under care of Dr. Taylor for nausea, vomiting and epigastric pain. Will obtain the following laboratory studies on admission, CBC, CMP, magnesium, hemoglobin A1c, lipase, CRP Will obtain a urinalysis on admission Will also obtain GI panel. If patient has any loose stools. Check INR given chronic anticoagulation. Will consult pharmacy for Coumadin dosing management Place patient on cardiac telemetry to monitor for dysrhythmias. Given significant cardiac history. KUB with upright as well as two-view chest x-ray. Given mild hypoxia on admission. Will continue with oxygen to maintain adequate saturations. Zofran and Phenergan as needed for nausea. Given significant epigastric tenderness. Will place patient on scheduled Protonix 40 milligrams IV twice a day She may have clear liquid only if her nausea is controlled Will monitor Accuchecks with meals and at bedtime SCDs to bilateral lower ext for DVT prophylaxis Recheck CBC and BMP tomorrow morning to follow blood counts, renal function and electrolytes Once home medications are reconciled will order appropriate medications Will discuss further plan of care with attending, Dr Taylor At time of discharge medical care is to return to PCP Dr Neff 11/22/16 Obtain an ABG and ammonia level to rule out further etiology for significant drowsiness Will discontinue the Dilaudid and Phenergan for possible contribution to drowsiness. In light of continued Epigastric pain and nausea will continue Protonix 40mg IV twice daily, Zofaran as needed and will also add Reglan 5mg IV every 6 hours scheduled. If no improvement, we will consider consulting general surgery. She is still on 1L nasal cannula to maintain her oxygen saturations. Suspicion that drowsiness could be related to IV medications. We will try to wean off of oxygen as she is able. Continue Coumadin for her cardiac co-morbidities, her INR is within range at 2.82, dosing management by pharmacy. Continue to monitor blood sugars, fasting BGM 141. Continue with sliding scale insulin. Continue to monitor routine labs. Creatinine did slightly increase to 1.3 today. This could be secondary to administration of Toradol. Will recheck CBC and BMP tomorrow morning to follow blood counts, renal function and electrolytes Continue SCDs for additional DVT prophylaxis. 11/23/2016 Impression/plan Elevated transaminases and bilirubin, new since admission. Etiology unknown. - Check gallbladder liver sonogram, hepatitis panel, CMV, EBV, HIV, GI panel Elevated ammonia with mild hepatic encephalopathy -start lactulose enema. Recent nausea, vomiting, diarrhea -check GI panel Hold Protonix as it can sometimes cause elevated liver enzymes Possible diabetic gastroparesis-continue Reglan 10 mg IV scheduled 4 times a day Diabetes-continue to monitor Qdgt-Jzkii-tni-dose sliding scale insulin Leukocytosis -without fever-check blood cultures, urinalysis, chest x-ray, GI panel, lactate Diaphoresis without signs of infection Consider concussion as cause of nausea and vomiting since she hit her head 2 weeks ago Prosthetic mitral valve on chronic anticoagulation Elevated INR in the patient on Coumadin-supratherapeutic INR likely related to acute liver enzyme elevation-discussed with pharmacy and we'll hold Coumadin and continue daily INR Coronary artery disease Ischemic cardiomyopathy paroxysmal atrial fibrillation Greater than 45 minutes of time was spent seeing and evaluating the patient today. MIKA WHITTAKER MD Nov 24, 2016 09:54
[2016-11-24] MEDS: PANTOPRAZOLE 40mg INJECTION IV SCH (10:16)
[2016-11-24] MEDS: POTASSIUM CHLORIDE 40 MEQ in 1/2 NS 1,000 ML IV SCH ×3 (10:17)
--- NOTE | 2016-11-24 10:25 | NUR ---
UPDATE PT IS SITTING BY THE BED AND EATING BREAKFAST. PT STATES SHE FEELS MUCH BETTER. PT IS TALKING TO FAMILY MEMBERS, AND STATES SHE FEEL SHE HAS MORE ENERGY.
--- NOTE | 2016-11-24 10:26 | DI ---
Indication: ITS.REASON: elevated liver enzymes PROCEDURE: US GALLBLADDER: Encounter: Initial Comparison: None Technique: Grayscale and color Doppler sonographic imaging of the right upper quadrant of the abdomen was performed. Findings: Hepatic parenchyma is four And echogenic without evidence for focal mass. The gallbladder is surgically absent. Both the intra and extrahepatic biliary system are of normal caliber with the common duct measuring 6 mm in dimension. Visualized portions of the head and body of the pancreas are unremarkable. The right kidney is present without collecting system dilatation. The right kidney measures 13.4 cm in length. Impression: Hepatic steatosis and borderline hepatomegaly. There is a preliminary report by [facility]. .
--- NOTE | 2016-11-24 10:32 | DI ---
Indication: ITS.REASON: abdominal pain PROCEDURE: PA view of the chest with supine and upright AP views of the abdomen Encounter: Initial Comparison: KUB dated November 21, 2016 and chest x-ray dated November 23, 2016 FINDINGS: Lungs are stable in appearance. No focal consolidative pneumonia, gross pleural effusion or pneumothorax. Severe cardiomegaly with cardiac valve replacement, prior CABG and left cardiac pacemaker defibrillator. No free air identified. The bowel gas pattern is nonobstructive and nonspecific. Scattered nondifferential air-fluid levels in small and large bowel. Degenerative changes in the hips, left greater than right. Enlarged liver silhouette. Impression: 1. No pneumonia or congestive failure. 2. Findings of possible gastroenteritis or mild ileus. No evidence of acute obstruction. .
--- NOTE | 2016-11-24 10:38 | DI ---
Indication: ITS.REASON: hypoxia, elevated wbc PROCEDURE: CHEST 1 VIEW: Encounter: Initial Comparison: November 21, 2016 Findings: Cardiac silhouette remains severely enlarged with prior sternotomy changes and left cardiac pacemaker defibrillator. No focal pneumonia or gross pneumothorax. No obvious pulmonary edema or effusion. Impression: Stable chest without focal pneumonia or overt congestive failure. Somewhat poor visualization of the left lung base due to cardiomegaly. .
[2016-11-24] MEDS: SCOPOLAMINE 1.5 MG PATCH TD SCH (15:23)
[2016-11-24] MEDS ORDERED: SCOPOLAMINE PATCH REMOVAL TD SCH (15:45)
[2016-11-24 16:00] VITALS: BP 130/88; PULSE 59; RESP 16; TEMP 96.9; O2SAT 96
--- NOTE | 2016-11-24 18:21 | NUR ---
UPDATE PT SEEMED TO HAVE MORE APPETITE AND STRENGTH THIS MORNING. WAS ABLE TO EAT CHICKEN BROTH AND SAT BY THE EDGE OF THE BED TO VISIT WITH FAMILY. SHE HAD 2 EPISODES OF HARP UPPER ABDOMINAL PAIN WHICH SHE WAS GIVEN DILAUDID ORDERED. PT DID NOT WANT TO EAT ANYTHING FOR LUNCH AND HAS NOT YET EATEN DINNER, HER MEAL IS AT BEDSIDE, SHE WAS ENCOURAGED TO EAT BUT SHE SAID SHE NEEDED SOME MORE TIME TO REST. WILL CONTINUE TO MONITOR.
[2016-11-24] MEDS: SERTRALINE 50 MG TABLET PO SCH (20:38)
--- NOTE | 2016-11-24 21:10 | NUR ---
PRN PT WAS GIVEN PRN PAIN MEDICATION FOR 8/10 ABD PAIN. PT SITTING ON THE COMMODE AT THE MOMENT. CALL LIGHT WITHIN REACH.
--- NOTE | 2016-11-24 23:03 | NUR ---
STATUS PT HAS NO URINE OUTPUT RECORDED IN THE PAST 24HRS. BLADDER SCAN WAS DONE. 459ML RESIDUE URINE. TELE HOSPITALIST WAS CONTACTED.
--- NOTE | 2016-11-25 | NUR ---
STATUS PT WAS STRAIGHT CATHED. STERILE PROCEDURE FOLLOWED. 250ML DARK ELADIA URINE. SUSY CARE PROVIDED. PT WAS ALSO HELPED WITH REPOSITIONING. WILL CONTINUE TO MONITOR.
[2016-11-25 00:11] VITALS: BP 106/69; PULSE 85; RESP 18; TEMP 96.3; O2SAT 94
[2016-11-25] MEDS: METOCLOPRAMIDE 10mg/2ml INJECTION IV SCH ×4 (03:48→21:31)
[2016-11-25 05:12] LABS: HCT - HEMATOCRIT 38.7 % (36-46); HGB - HEMOGLOBIN 12.5 GM/DL (12-16); MEAN CORPUSCULAR HGB 28.7 UUG (26-34); MEAN CORPUSCULAR HGB CONC(MCHC 32.3 GM/DL (31-37); MEAN PLATELET VOLUME 10.9 UM3 (9.4-12.4); RED BLOOD COUNT 4.35 M/MM3 (4.00-5.20); WBC - WHITE BLOOD COUNT 7.9 T/MM3 (4.5-11.0)
[2016-11-25 05:22] LABS: INR 2.93 (0.76-1.04); PROTHROMBIN TIME 31.9 SEC (9.31-12.49)
[2016-11-25 05:28] LABS: ALBUMIN 3.2 G/DL (3.5-5.0); ALBUMIN/GLOBULIN RATIO 1.1 RATIO (1.1-2.2); ALKALINE PHOSPHATASE 121 U/L (38-126); ALT (SGPT) 411 U/L (9-52); ANION GAP 10 MEQ/L (5-15); AST (SGOT) 497 U/L (14-36); BUN/CREATININE RATIO 23 RATIO (6-26); CALCIUM 7.2 MG/DL (8.4-10.2); CHLORIDE 104 MEQ/L (98-107); CO2 - CARBON DIOXIDE 24 MEQ/L (22-30); GLOMERULAR FILTRATION RATE 56; GLUCOSE 90 MG/DL (65-110); MAGNESIUM 2.7 MG/DL (1.6-2.3); POTASSIUM 3.9 MEQ/L (3.6-5); SODIUM 138 MEQ/L (134-144); TOTAL PROTEIN 6.1 G/DL (6.3-8.2)
[2016-11-25] MEDS: LEVOTHYROXINE 150 MCG TABLET PO SCH (05:33)
[2016-11-25 06:44] LABS: ANISOCYTOSIS 1+; EOSINOPHILS # (MANUAL) 0.4 T/MM3 (0-0.5); MONOCYTES # (MANUAL) 0.8 T/MM3 (0-0.8); NEUTROPHILS #(MANUAL)-ABSOLUTE 4.7 T/MM3 (1.8-7.7); NUCLEATED RED BLOOD CELLS 1; TOTAL CELLS COUNTED 100 %
--- NOTE | 2016-11-25 07:25 | NUR ---
SUMMARY PT SLEPT WELL AFTER MIDNIGHT. PT IS ALERT AND ORIENTED. ABLE TO VOICE NEEDS TO THE STAFFS. ON 1LNC ALL NIGHT. PT WAS HELPED SEVERAL TIMES TO THE COMMODE. STRAIGHT CATHED ONE TIME FOR URINARY RETENTION. PT ON CONTINUOS IV FLUIDS. WAS EDUCATED ABOUT THE USE OF CALL LIGHT AND PT SAFETY WHICH SHE IS COMPLIANT WITH.
[2016-11-25 07:57] VITALS: BP 126/71; PULSE 60; RESP 18; TEMP 97.2; O2SAT 97
[2016-11-25 08:08] VITALS: PULSE 60; RESP 18
[2016-11-25] MEDS: PANTOPRAZOLE 40mg INJECTION IV SCH (08:26)
--- NOTE | 2016-11-25 09:16 | DI ---
Indication: ITS.REASON: abdominal pain, elevated liver enzymes PROCEDURE: CT ABD/PELVIS W/O CONTRAST: Encounter: Initial Comparison: November 20, 2016 Technique: Axial CT images were performed through the abdomen and pelvis without intravenous contrast. Coronal and sagittal two-dimensional reformats. Automated Exposure Control and Iterative Reconstruction dose reducing techniques were utilized. Findings: Enlarged cardiac silhouette. Small pleural effusions with lower lobe atelectasis. The unenhanced contours of the liver are grossly unremarkable. Gallbladder is surgically absent. Spleen, pancreas, adrenal glands and kidneys are stable from the very recent comparison study. Two enlarged left proximal thigh lymph nodes measuring up to 1.5 cm in short axis on axial image #94 with some surrounding soft tissue induration. There is also prominent right inguinal lymph node as seen on the comparison. Trace free fluid. Bladder is normal. Uterus is absent. No evidence of a bowel obstruction. There is some inflammation along the descending colon which is nonfocal. Bone windows are stable. Impression: 1. Increasing small pleural effusions. 2. Questionable early or mild diverticulitis or colitis involving the descending colon. 3. Trace ascites without acute inflammatory process seen in the abdomen or pelvis. 4. Inguinal and proximal thigh adenopathy could be reactive or neoplastic. There is a preliminary report by [facility]. .
--- NOTE | 2016-11-25 09:41 | NUR ---
STATUS PATIENT WEANED TO RA THIS MORNING, O2 SATURATION REMAINING 96-97%. PATIENT STILL APPEARS SOA WITH ACTIVITY BUT IS ALWAYS UPPER 90%S. PATIENT DENIES ALL PAIN AND NAUSEA THIS AM. AT FIRST REPORTED JUST BEING TOO TIRED TO EAT BREAKFAST BUT IS CURRENTLY SIPPING ON BROTH. GOOD URINE VOID THIS AM AND SMALL AMOUNT OF SOFT/LOOSE STOOL.
--- NOTE | 2016-11-25 09:50 | NUR ---
PAIN PATIENT REPORTING RETURNING EPIGASTRIC PAIN. PERCOCET GIVEN.
--- NOTE | 2016-11-25 09:54 | NUR ---
WARFARIN CONSULT: S: 66 y/o F on warfarin for afib. Hx of Prothetic Mitral Valve (Tissue). Warfarin home dose is 5 mg PO daily. Goal INR 2-3. O: Date INR Warfarin Dose 11/21 2.88 4 mg 11/22 2.82 4 mg 11/23 4.34 held 11/24 3.64 held 11/25 2.93 plan: 2 mg dose A/P: Will give 2 mg dose today. No significant drug-drug interactions noted. Will continue to monitor & make adjustments accordingly. Thank you for the consult, [place] Rosario RPh
[2016-11-25 11:06] VITALS: O2SAT 96
[2016-11-25] MEDS ORDERED: WARFARIN 2 MG TABLET PO SCH (12:00)
[2016-11-25] MEDS: HYDROMORPHONE 2mg/ml INJECTION IV PRN (12:05)
--- NOTE | 2016-11-25 12:07 | NUR ---
PAIN UNCONTROLLED PERCOCET TOOK PAIN LEVEL FROM 8 TO 7 FOR A SHORT TIME BUT PATIENT IS AGAIN RATING EPIGASTRIC PAIN 8/10. PRN IV DILAUDID GIVEN.
[2016-11-25] MEDS: POTASSIUM CHLORIDE 40 MEQ in 1/2 NS 1,000 ML IV SCH (14:06)
--- NOTE | 2016-11-25 14:49 | NUR ---
CM CM IN TO VISIT WITH PT. CM EXPLAINED ROLE, PROVIDED CONTACT INFORMATION AND UPDATED THE WHITEBOARD. PT DENIES HOME NEEDS UPON DISMISSAL. PT AWARE TO CONTACT CM SHOULD NEEDS ARISE.
[2016-11-25 14:58] VITALS: BP 132/83; PULSE 60; RESP 18; TEMP 96.2; O2SAT 94
--- NOTE | 2016-11-25 17:53 | NUR ---
PERCOCET PATIENT REPORTING 8/10 ABDOMINAL PAIN. PERCOCET GIVEN.
--- NOTE | 2016-11-25 17:55 | NUR ---
SHIFT SUMMARY VSS. RA. PATIENT CONTINUES TO REPORT ABDOMINAL PAIN, SEE EMAR FOR PERCOCET AND DILAUDID GIVEN. PATIENT REPORTED SLIGHT NAUSEA THROUGHOUT THE DAY BUT DID NOT WANT ANYTHING BESIDES SCHEDULED REGLAN. UP TO CHAIR FOR LUNCH AND EATING SUPPER ON EDGE OF BED. ADVANCED DIET TO FULL LIQUIDS WITH TOAST AND CRACKERS. FAMILY PRESENT MOST OF DAY. 1/2NS WITH 40MEQ KCL INFUSING AT 75CC/HR. ADEQUATE URINE OUTPUT TODAY. BED AND CHAIR ALARMS IN USE. USES CALL LIGHT APPROPRIATELY.
--- NOTE | 2016-11-25 19:58 | PNPDOC ---
Subjective Date DATE: 11/25/16 TIME: 19:50 Subjective The patient was seen in her room this morning. No family was present. She stated she was still having some abdominal discomfort and pointed to the epigastrium. She is less nauseated. At first she stated she still felt bad, but at the end of the visit she sat up and said she was feeling better and wanted to try full liquid diet. She denies any shortness of breath. She denies any chest pain. She has had no fevers that continues to have some sweats at times. She's had some small bowel movements. She is urinating okay. She's getting up to the bedside commode with assistance. Objective Vital Signs Vital signs Vital Signs Date Time Temp Pulse Resp B/P Pulse Ox O2 Delivery O2 Flow Rate FiO2 11/25/16 14:58 96.2 60 18 132/83 94 Room Air 11/25/16 00:11 1.00 GEN-alert, not is drowsy, no acute distress HEENT-sclera mildly icteric, pupils are equal, oropharynx is mildly dry NECK-supple CV-regular rate and rhythm CHEST-clear to auscultation bilaterally ABD-soft, obese, minimally tender in the epigastrium but nowhere else, normal bowel sounds -no [place] EXT-no edema NEURO-no focal deficits SKIN-warm and mildly diaphoretic Height (Feet): 5 Height (Inches): 6.00 Weight (Kilograms): 116.600 Laboratory Laboratory Item Value Date Time Total Bilirubin 2.00 MG/DL H 11/25/16 0456 Aspartate Amino Transf (AST/SGOT) 497 U/L H 11/25/166 Alanine Aminotransferase (ALT/SGPT) 411 U/L H 11/25/16 0456 Alkaline Phosphatase 121 U/L 11/25/166 Phosphorus Level 2.4 MG/DL L 11/25/164 Magnesium Level 2.7 MG/DL H 11/25/166 Calcium Level 7.2 MG/DL L 11/25/16 0456 Laboratory Tests 11/24/16 05:11 11/25/16 04:56 Laboratory Tests 11/24/16 05:11 11/25/16 04:56 Microbiology Microbiology Microbiology Date/Time Source Procedure Growth Status 11/23/16 08:38 Peripheral/Iv Start Blood Culture - Preliminary NO GROWTH AFTER 48 HOURS Resulted 11/23/16 08:34 Peripheral/Iv Start Blood Culture - Preliminary NO GROWTH AFTER 48 HOURS Resulted 11/23/16 08:34 Blood Cytomegalovirus DNA (PCR) (YNES) - Final Complete Radiology CT abdomen and pelvis from 11/24/2016 Impression: 1. Increasing small pleural effusions. 2. Questionable early or mild diverticulitis or colitis involving the descending colon. 3. Trace ascites without acute inflammatory process seen in the abdomen or pelvis. 4. Inguinal and proximal thigh adenopathy could be reactive or neoplastic. Assessment & Plan Problems: (1) Epigastric abdominal pain Status: Acute (2) Nausea & vomiting Status: Acute Qualifiers: Vomiting Intractability: unspecified (3) Hypoxia Status: Acute (4) Chronic combined systolic and diastolic heart failure Status: Chronic (5) Presence of prosthetic heart valve Status: Chronic Assessment & Plan: Mitral valve (6) Atherosclerotic heart disease of [place] coronary artery without angina pectoris Status: Chronic (7) Type 2 diabetes mellitus without complications Status: Chronic (8) Nonrheumatic mitral valve insufficiency Status: Chronic (9) Essential (primary) hypertension Status: Chronic (10) Ischemic cardiomyopathy Status: Chronic (11) Atrial fibrillation Status: Chronic Qualifiers: Atrial fibrillation type: paroxysmal Qualified Codes: I48.0 - Paroxysmal atrial fibrillation (12) Mixed hyperlipidemia Status: Chronic (13) Cardiac pacemaker Status: Chronic (14) correction (current) use of anticoagulants Status: Chronic (15) GERD (gastroesophageal reflux disease) (16) Hx of ulcer disease Status: Chronic (17) OA (osteoarthritis) Status: Chronic (18) Obesity Status: Chronic Qualifiers: Obesity type: due to excess calories Obesity severity: morbid Qualified Codes: E66.01 - Morbid (severe) obesity due to excess calories (19) Encephalopathy Assessment 11/24/2016 Impression/plan Acutely Elevated transaminases and bilirubin-improved, etiology still unknown. Liver sonogram showed fatty liver and enlargement of the liver, but no other abnormalities. hepatitis panel, EBV, are all pending. GI panel is negative. CMV is negative. Liver enzymes are trending down for the past 2 days. Elevated ammonia with mild hepatic encephalopathy -improved post lactulose enemas. Monitor at this time. No further lactulose for now as it may be contributing to abdominal discomfort. Clinically encephalopathy is markedly improved. Abdominal pain -CT abdomen yesterday showed questionable descending diverticulitis. On exam today the patient has no discomfort other than mildly in the epigastrium. No fever. No elevated white count. We'll monitor at this time off of antibiotics. Hypoxia -mild pleural effusion seen on CT abdomen and pelvis. She is drinking better today. We'll DC IV fluids. Recent nausea, vomiting-improving. Appetite improved today. Possible diabetic gastroparesis-continue Reglan 10 mg IV scheduled 4 times a day Diabetes-continue to monitor Zqkg-Gjqdz-ebr-dose sliding scale insulin Leukocytosis -without fever-resolved. Blood cultures negative to date. Urinalysis negative. GI panel negative. The patient is not on antibiotics. Diaphoresis without signs of infection-improved Consider concussion as cause of nausea and vomiting since she hit her head 2 weeks ago Prosthetic mitral valve on chronic anticoagulation. Coumadin monitored by pharmacy. Coronary artery disease-asymptomatic Ischemic cardiomyopathy -stable paroxysmal atrial fibrillation-sinus rhythm GERD with history of ulcer-restart Protonix, the patient states she had been taking this chronically. It is doubtful that it contributed to elevated liver enzymes. Overall, the patient appears to be doing a little better every day. We are advancing diet today. DC IV fluids this evening since she is taking in oral fluids better. May need to resume diuretics tomorrow. Greater than 35 minutes of time spent seeing and evaluating the patient and determining care plan today. Discussed with case management and the patient's nurse. DVT Prophylaxis: Coumadin Code Status Full Code Hospital Course Summary Disclaimer The hospital course summary below is not to be considered part of the above Progress Note. Hospital Course Summary 11/21/16 Admit patient to outpatient observation under care of Dr. Taylor for nausea, vomiting and epigastric pain. Will obtain the following laboratory studies on admission, CBC, CMP, magnesium, hemoglobin A1c, lipase, CRP Will obtain a urinalysis on admission Will also obtain GI panel. If patient has any loose stools. Check INR given chronic anticoagulation. Will consult pharmacy for Coumadin dosing management Place patient on cardiac telemetry to monitor for dysrhythmias. Given significant cardiac history. KUB with upright as well as two-view chest x-ray. Given mild hypoxia on admission. Will continue with oxygen to maintain adequate saturations. Zofran and Phenergan as needed for nausea. Given significant epigastric tenderness. Will place patient on scheduled Protonix 40 milligrams IV twice a day She may have clear liquid only if her nausea is controlled Will monitor Accuchecks with meals and at bedtime SCDs to bilateral lower ext for DVT prophylaxis Recheck CBC and BMP tomorrow morning to follow blood counts, renal function and electrolytes Once home medications are reconciled will order appropriate medications Will discuss further plan of care with attending, Dr Taylor At time of discharge medical care is to return to PCP Dr Neff 11/22/16 Obtain an ABG and ammonia level to rule out further etiology for significant drowsiness Will discontinue the Dilaudid and Phenergan for possible contribution to drowsiness. In light of continued Epigastric pain and nausea will continue Protonix 40mg IV twice daily, Zofaran as needed and will also add Reglan 5mg IV every 6 hours scheduled. If no improvement, we will consider consulting general surgery. She is still on 1L nasal cannula to maintain her oxygen saturations. Suspicion that drowsiness could be related to IV medications. We will try to wean off of oxygen as she is able. Continue Coumadin for her cardiac co-morbidities, her INR is within range at 2.82, dosing management by pharmacy. Continue to monitor blood sugars, fasting BGM 141. Continue with sliding scale insulin. Continue to monitor routine labs. Creatinine did slightly increase to 1.3 today. This could be secondary to administration of Toradol. Will recheck CBC and BMP tomorrow morning to follow blood counts, renal function and electrolytes Continue SCDs for additional DVT prophylaxis. 11/23/2016 Impression/plan Elevated transaminases and bilirubin, new since admission. Etiology unknown. - Check gallbladder liver sonogram, hepatitis panel, CMV, EBV, HIV, GI panel Elevated ammonia with mild hepatic encephalopathy -start lactulose enema. Recent nausea, vomiting, diarrhea -check GI panel Hold Protonix as it can sometimes cause elevated liver enzymes Possible diabetic gastroparesis-continue Reglan 10 mg IV scheduled 4 times a day Diabetes-continue to monitor Zwmn-Dytxk-gpf-dose sliding scale insulin Leukocytosis -without fever-check blood cultures, urinalysis, chest x-ray, GI panel, lactate Diaphoresis without signs of infection Consider concussion as cause of nausea and vomiting since she hit her head 2 weeks ago Prosthetic mitral valve on chronic anticoagulation Elevated INR in the patient on Coumadin-supratherapeutic INR likely related to acute liver enzyme elevation-discussed with pharmacy and we'll hold Coumadin and continue daily INR Coronary artery disease Ischemic cardiomyopathy paroxysmal atrial fibrillation Greater than 45 minutes of time was spent seeing and evaluating the patient today. 11/24/2016 Impression/plan Acutely Elevated transaminases and bilirubin-improved, etiology still unknown. Liver sonogram showed fatty liver and enlargement of the liver, but no other abnormalities. hepatitis panel, CMV, EBV, are all pending. GI panel is negative. Elevated ammonia with mild hepatic encephalopathy -improved post lactulose enemas. Monitor at this time. No further lactulose for now as it may be contributing to abdominal discomfort Abdominal pain -CT abdomen prior to admission showed no significant abnormalities other than an enlarged right inguinal node. Check KUB today. Hypoxia -check chest x-ray today, chest x-ray yesterday showed cardiomegaly and official report is pending Recent nausea, vomiting-improving Possible diabetic gastroparesis-continue Reglan 10 mg IV scheduled 4 times a day Diabetes-continue to monitor Srql-Ecckv-ffy-dose sliding scale insulin Leukocytosis -without fever-improved today. Blood cultures negative to date. Urinalysis negative. GI panel negative. The patient is not on antibiotics. Diaphoresis without signs of infection-improved Consider concussion as cause of nausea and vomiting since she hit her head 2 weeks ago Prosthetic mitral valve on chronic anticoagulation Elevated INR in the patient on Coumadin-supratherapeutic INR yesterday, likely related to acute liver enzyme elevation-discussed with pharmacy yesterday and Coumadin held. INR has improved today. Coronary artery disease Ischemic cardiomyopathy paroxysmal atrial fibrillation GERD with history of ulcer-restart Protonix, the patient states she had been taking this chronically. It is doubtful that it contributed to elevated liver enzymes. Greater than 45 minutes of time was spent seeing and evaluating the patient today. MIKA WHITTAKER MD Nov 25, 2016 19:53
[2016-11-25] MEDS: SERTRALINE 50 MG TABLET PO SCH (21:31)
[2016-11-26 00:15] VITALS: BP 123/80; PULSE 60; RESP 12; TEMP 95.2; O2SAT 94
[2016-11-26 00:51] VITALS: RESP 24
[2016-11-26 02:47] LABS: HEPATITIS B SURFACE AG - BATCH NEGATIVE (NEGATIVE)
[2016-11-26 02:52] LABS: HEPATITIS A ANTIBODY IGM-BATCH NEGATIVE (NEGATIVE)
[2016-11-26 03:04] LABS: HEPATITIS C VIRUS AB-BATCH NEGATIVE (NEGATIVE)
[2016-11-26] MEDS: METOCLOPRAMIDE 10mg/2ml INJECTION IV SCH ×4 (03:04→20:51)
--- NOTE | 2016-11-26 03:17 | NUR ---
PRN Med Pt complaining of 8/10 abdominal pain. Gave percoset. Will continue to monitor.
--- NOTE | 2016-11-26 04:42 | NUR ---
Status Pt A/Ox3 during shift. Pleasant to converse with. Complained of "feeling sick to the stomach." Gave PRN Zofran which helped some. Pt requested a snack of sheyla crackers and milk, but the first sips triggered too much nausea to eat much. Pt had adequate UO. Light su cloudy urine with foul smell. Pt reported some dizziness with ambulation to after first trip. Also had some SOA with both trips to . Pt appeared to rest well. Bed alarm on and call light within reach. Will continue to monitor.
[2016-11-26] MEDS: PANTOPRAZOLE 40 MG TABLET PO SCH (04:53)
[2016-11-26] MEDS: LEVOTHYROXINE 150 MCG TABLET PO SCH (04:53)
[2016-11-26 05:40] LABS: INR 2.88 (0.76-1.04); PROTHROMBIN TIME 31.4 SEC (9.31-12.49)
[2016-11-26] MEDS: HYDROMORPHONE 2mg/ml INJECTION IV PRN (05:41)
[2016-11-26 08:00] VITALS: PULSE 59; RESP 16
--- NOTE | 2016-11-26 08:00 | NUR ---
RECEIVED REPORT PATIENT IS ALERT AND ORIENTED. DENIES ABD PAIN THIS MORNING. RT HAD SL. RA. VSS. NO CONCERNS NOTED.
[2016-11-26 08:30] LABS: BASOPHILS % (AUTO) 0.2 % (0-2); EOSINOPHILS # (AUTO) 0.2 T/MM3 (0-0.5); EOSINOPHILS % (AUTO) 2.3 % (0-4); HCT - HEMATOCRIT 42.6 % (36-46); HGB - HEMOGLOBIN 13.4 GM/DL (12-16); IMMATURE GRANULOCYTE # (AUTO) 0.01 T/MM3 (0.00-0.03); IMMATURE GRANULOCYTE % (AUTO) 0.1 % (0.0-0.5); LYMPHOCYTES # (AUTO) 1.2 T/MM3 (1-4.8); LYMPHOCYTES % (AUTO) 13.5 % (23-45); MEAN CORPUSCULAR HGB 28.3 UUG (26-34); MEAN CORPUSCULAR HGB CONC(MCHC 31.5 GM/DL (31-37); MEAN CORPUSCULAR VOLUME 90.1 UM3 (80-100); MEAN PLATELET VOLUME 11.5 UM3 (9.4-12.4); MONOCYTES # (AUTO) 1.2 T/MM3 (0-0.8); MONOCYTES % (AUTO) 13.4 % (0-9.0); NEUTROPHILS #(AUTO)-ABSOLUTE 6.3 T/MM3 (1.8-7.7); NEUTROPHILS % (AUTO) 70.5 % (33-66); RED BLOOD COUNT 4.73 M/MM3 (4.00-5.20); WBC - WHITE BLOOD COUNT 8.9 T/MM3 (4.5-11.0)
[2016-11-26 08:36] LABS: ALBUMIN 3.6 G/DL (3.5-5.0); ALKALINE PHOSPHATASE 198 U/L (38-126); ALT (SGPT) 542 U/L (9-52); ANION GAP 14 MEQ/L (5-15); AST (SGOT) 702 U/L (14-36); BUN/CREATININE RATIO 23 RATIO (6-26); CALCIUM 7.7 MG/DL (8.4-10.2); CHLORIDE 104 MEQ/L (98-107); CO2 - CARBON DIOXIDE 21 MEQ/L (22-30); GLOMERULAR FILTRATION RATE 56; GLUCOSE 120 MG/DL (65-110); POTASSIUM 4.6 MEQ/L (3.6-5); SODIUM 139 MEQ/L (134-144); TOTAL PROTEIN 7.1 G/DL (6.3-8.2)
[2016-11-26 09:12] VITALS: BP 140/85; PULSE 59; RESP 16; TEMP 95.2; O2SAT 95
--- NOTE | 2016-11-26 10:36 | NUR ---
COUMADIN CONSULT (Recurring): Today's INR = 2.88. Will give Warfarin 2mg today. Will continue to monitor & make adjustments accordingly. Thank you.
[2016-11-26] MEDS ORDERED: WARFARIN 2 MG TABLET PO SCH (12:00)
[2016-11-26 13:16] LABS: AMMONIA 46 UMOL/L (9-33)
[2016-11-26 14:23] LABS: LIPASE 154 U/L (23-300)
[2016-11-26] MEDS: LACTULOSE 20 GM/30 ML UD PO SCH (15:50)
[2016-11-26 16:00] VITALS: BP 136/92; PULSE 60; RESP 18; TEMP 97; O2SAT 95
--- NOTE | 2016-11-26 16:39 | NUR ---
Dietary Consult R/T poor po intake Diet Order: full liquid diet with toast and crackers. RD offered pt mighty shake. Pt willing to try for supper along with cr of chicken soup and iced tea. Pt not interested in ordering breakfast at this time. RD will f/u on acceptance of mighty shakes. RD available at ext [phone]
--- NOTE | 2016-11-26 18:00 | NUR ---
EOS PATIENT HAS NOT COMPLAINED OF ANY GASTRIC DISCOMFORT. NOTABLE POOR APPETITE. MOLECULAR BIOLOGIST IN ROOM TRIES TO ASSIST PATIENT WITH FOOD CHOICES BUT PATIENT IS UNMOTIVATED TO EAT. PATIENT REPORTS GAS WITHOUT STOOL TODAY. NO CONCERNS REPORTED TODAY.
[2016-11-26] MEDS: INSULIN ASPART 100 UNIT/ML SQ PRN (20:51)
[2016-11-26] MEDS: SERTRALINE 50 MG TABLET PO SCH (20:52)
--- NOTE | 2016-11-26 20:59 | PNPDOC ---
Subjective Date DATE: 11/26/16 TIME: 20:51 Subjective The patient was seen earlier this morning accompanied by her younger sister. The patient stated she was eating a little bit better. She still had some nausea but it was improved. She had some occasional epigastric pain that it was better at this time. She is breathing okay. She is urinating without difficulties. She has been more alert the past few days. Objective Vital Signs Vital signs Vital Signs Date Time Temp Pulse Resp B/P Pulse Ox O2 Delivery O2 Flow Rate FiO2 11/26/16 16:00 97.0 60 18 136/92 95 Room Air 11/25/16 00:11 1.00 GEN-more alert, oriented 3, no acute distress HEENT-sclera mildly icteric, oropharynx is moist NECK-supple CV-regular rate and rhythm CHEST-clear to auscultation bilaterally ABD-soft, mild epigastric tenderness, no rebound or guarding, normal bowel sounds -no Almanza EXT-no edema NEURO-no focal deficits SKIN-mild diaphoresis Height (Feet): 5 Height (Inches): 6.00 Weight (Kilograms): 116.500 Laboratory Laboratory Item Value Date Time Cytomegalovirus IgG Antibody Negative 11/23/16833 Cytomegalovirus IgM Antibody Negative 11/23/16833 Landon-Guerra Virus Capsid Ag IgG Ab Positive A 11/23/16833 Landon-Guerra Capsid Ag IgG Ab Index 7.84 OD Ratio H 11/23/16833 Landon-Guerra Virus Capsid Ag IgM Ab Negative 11/23/16833 E-B Virus Capsid Ag IgM Ab Index 0.14 OD Ratio 11/23/16833 Landon-Guerra Early Antigen IgG Ab Negative 11/23/16833 Landon-Guerra Early Ag IgG Ab Interp 0.05 OD Ratio 11/23/1634 Landon-Guerra Virus Nuclear Ag Ab Positive A 11/23/16833 Hepatitis A IgM Antibody Negative 11/23/16833 Hepatitis B Surface Antigen Negative 11/23/16833 Hepatitis B Core IgM Antibody Negative 11/23/16833 Hepatitis C Antibody Negative 11/23/16833 HIV (1&2) Antibody Rapid Negative 11/23/16 0528 Item Value Date Time Total Bilirubin 2.80 MG/DL H 11/26/16 0452 Aspartate Amino Transf (AST/SGOT) 702 U/L H 11/26/16 0452 Alanine Aminotransferase (ALT/SGPT) 542 U/L H 11/26/16 0452 Alkaline Phosphatase 198 U/L H # 11/26/16 0452 Ammonia 46 UMOL/L H 11/26/16 1245 Lipase 154 U/L # 11/26/16 1245 Total Protein 7.1 G/DL 11/26/16 0452 Albumin 3.6 G/DL 11/26/16 0452 Globulin 3.5 G/DL 11/26/16 0452 Albumin/Globulin Ratio 1.0 RATIO L 11/26/16 0452 Laboratory Tests 11/25/16 04:56 11/26/16 04:52 Laboratory Tests 11/25/16 04:56 11/26/16 04:52 Microbiology Microbiology CMV CARDIOLOGY TECHNOLOGIST DNA is negative Cultures negative 3 days Assessment & Plan Problems: (1) Epigastric abdominal pain Status: Acute (2) Nausea & vomiting Status: Acute Qualifiers: Vomiting Intractability: unspecified (3) Hypoxia Status: Acute (4) Chronic combined systolic and diastolic heart failure Status: Chronic (5) Presence of prosthetic heart valve Status: Chronic Assessment & Plan: Mitral valve (6) Atherosclerotic heart disease of kaibab coronary artery without angina pectoris Status: Chronic (7) Type 2 diabetes mellitus without complications Status: Chronic (8) Nonrheumatic mitral valve insufficiency Status: Chronic (9) Essential (primary) hypertension Status: Chronic (10) Ischemic cardiomyopathy Status: Chronic (11) Atrial fibrillation Status: Chronic Qualifiers: Atrial fibrillation type: paroxysmal Qualified Codes: I48.0 - Paroxysmal atrial fibrillation (12) Mixed hyperlipidemia Status: Chronic (13) Cardiac pacemaker Status: Chronic (14) 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 Liver sonogram showed fatty liver and enlargement of the liver, but no other abnormalities. Hepatitis a, B and C testing are negative. EBV shows past infection but not current infection. CMV is negative. GI panel is negative. Liver enzymes are up again today. Elevated ammonia with mild hepatic encephalopathy -will try oral lactulose today 1 dose. Abdominal pain -CT abdomen yesterday showed questionable descending diverticulitis, but abdominal pain is epigastric and there is no fever or elevated white count. We'll continue to monitor. Hypoxia -mild pleural effusion seen on CT abdomen and pelvis. Oral intake is improving. IV fluids were discontinued yesterday. Recent nausea, vomiting-improving. Appetite improving Possible diabetic gastroparesis-continue Reglan 10 mg IV scheduled 4 times a day Diabetes-continue to monitor Bzgc-Wvlre-jlp-dose sliding scale insulin Leukocytosis -without fever-resolved. Blood cultures negative to date. Urinalysis negative. GI panel negative. The patient is not on antibiotics. Diaphoresis without signs of infection-improved Consider concussion as cause of nausea and vomiting since she hit her head 2 weeks ago Prosthetic mitral valve on chronic anticoagulation. Coumadin monitored by pharmacy. INR is therapeutic Coronary artery disease-asymptomatic Ischemic cardiomyopathy -stable paroxysmal atrial fibrillation-sinus rhythm GERD with history of ulcer-restart Protonix, the patient states she had been taking this chronically. It is doubtful that it contributed to elevated liver enzymes. Continue to advance diet as tolerated. Repeat lab work tomorrow. Scopolamine patch was discontinued in case this is contributing somewhat to drowsiness. Over 35 minutes of time was spent seeing and evaluating the patient in determining care plan today. DVT Prophylaxis: Coumadin Code Status Full Code Hospital Course Summary Disclaimer The hospital course summary below is not to be considered part of the above Progress Note. Hospital Course Summary 11/21/16 Admit patient to outpatient observation under care of Dr. Taylor for nausea, vomiting and epigastric pain. Will obtain the following laboratory studies on admission, CBC, CMP, magnesium, hemoglobin A1c, lipase, CRP Will obtain a urinalysis on admission Will also obtain GI panel. If patient has any loose stools. Check INR given chronic anticoagulation. Will consult pharmacy for Coumadin dosing management Place patient on cardiac telemetry to monitor for dysrhythmias. Given significant cardiac history. KUB with upright as well as two-view chest x-ray. Given mild hypoxia on admission. Will continue with oxygen to maintain adequate saturations. Zofran and Phenergan as needed for nausea. Given significant epigastric tenderness. Will place patient on scheduled Protonix 40 milligrams IV twice a day She may have clear liquid only if her nausea is controlled Will monitor Accuchecks with meals and at bedtime SCDs to bilateral lower ext for DVT prophylaxis Recheck CBC and BMP tomorrow morning to follow blood counts, renal function and electrolytes Once home medications are reconciled will order appropriate medications Will discuss further plan of care with attending, Dr Taylor At time of discharge medical care is to return to PCP Dr Neff 11/22/16 Obtain an ABG and ammonia level to rule out further etiology for significant drowsiness Will discontinue the Dilaudid and Phenergan for possible contribution to drowsiness. In light of continued Epigastric pain and nausea will continue Protonix 40mg IV twice daily, Zofaran as needed and will also add Reglan 5mg IV every 6 hours scheduled. If no improvement, we will consider consulting general surgery. She is still on 1L nasal cannula to maintain her oxygen saturations. Suspicion that drowsiness could be related to IV medications. We will try to wean off of oxygen as she is able. Continue Coumadin for her cardiac co-morbidities, her INR is within range at 2.82, dosing management by pharmacy. Continue to monitor blood sugars, fasting BGM 141. Continue with sliding scale insulin. Continue to monitor routine labs. Creatinine did slightly increase to 1.3 today. This could be secondary to administration of Toradol. Will recheck CBC and BMP tomorrow morning to follow blood counts, renal function and electrolytes Continue SCDs for additional DVT prophylaxis. 11/23/2016 Impression/plan Elevated transaminases and bilirubin, new since admission. Etiology unknown. - Check gallbladder liver sonogram, hepatitis panel, CMV, EBV, HIV, GI panel Elevated ammonia with mild hepatic encephalopathy -start lactulose enema. Recent nausea, vomiting, diarrhea -check GI panel Hold Protonix as it can sometimes cause elevated liver enzymes Possible diabetic gastroparesis-continue Reglan 10 mg IV scheduled 4 times a day Diabetes-continue to monitor Mkzy-Xedhj-zde-dose sliding scale insulin Leukocytosis -without fever-check blood cultures, urinalysis, chest x-ray, GI panel, lactate Diaphoresis without signs of infection Consider concussion as cause of nausea and vomiting since she hit her head 2 weeks ago Prosthetic mitral valve on chronic anticoagulation Elevated INR in the patient on Coumadin-supratherapeutic INR likely related to acute liver enzyme elevation-discussed with pharmacy and we'll hold Coumadin and continue daily INR Coronary artery disease Ischemic cardiomyopathy paroxysmal atrial fibrillation Greater than 45 minutes of time was spent seeing and evaluating the patient today. 11/24/2016 Impression/plan Acutely Elevated transaminases and bilirubin-improved, etiology still unknown. Liver sonogram showed fatty liver and enlargement of the liver, but no other abnormalities. hepatitis panel, CMV, EBV, are all pending. GI panel is negative. Elevated ammonia with mild hepatic encephalopathy -improved post lactulose enemas. Monitor at this time. No further lactulose for now as it may be contributing to abdominal discomfort Abdominal pain -CT abdomen prior to admission showed no significant abnormalities other than an enlarged right inguinal node. Check KUB today. Hypoxia -check chest x-ray today, chest x-ray yesterday showed cardiomegaly and official report is pending Recent nausea, vomiting-improving Possible diabetic gastroparesis-continue Reglan 10 mg IV scheduled 4 times a day Diabetes-continue to monitor Lrfi-Vwisu-dpd-dose sliding scale insulin Leukocytosis -without fever-improved today. Blood cultures negative to date. Urinalysis negative. GI panel negative. The patient is not on antibiotics. Diaphoresis without signs of infection-improved Consider concussion as cause of nausea and vomiting since she hit her head 2 weeks ago Prosthetic mitral valve on chronic anticoagulation Elevated INR in the patient on Coumadin-supratherapeutic INR yesterday, likely related to acute liver enzyme elevation-discussed with pharmacy yesterday and Coumadin held. INR has improved today. Coronary artery disease Ischemic cardiomyopathy paroxysmal atrial fibrillation GERD with history of ulcer-restart Protonix, the patient states she had been taking this chronically. It is doubtful that it contributed to elevated liver enzymes. Greater than 45 minutes of time was spent seeing and evaluating the patient today. 11/25/2016 Impression/plan Acutely Elevated transaminases and bilirubin-improved, etiology still unknown. Liver sonogram showed fatty liver and enlargement of the liver, but no other abnormalities. hepatitis panel, EBV, are all pending. GI panel is negative. CMV is negative. Liver enzymes are trending down for the past 2 days. Elevated ammonia with mild hepatic encephalopathy -improved post lactulose enemas. Monitor at this time. No further lactulose for now as it may be contributing to abdominal discomfort. Clinically encephalopathy is markedly improved. Abdominal pain -CT abdomen yesterday showed questionable descending diverticulitis. On exam today the patient has no discomfort other than mildly in the epigastrium. No fever. No elevated white count. We'll monitor at this time off of antibiotics. Hypoxia -mild pleural effusion seen on CT abdomen and pelvis. She is drinking better today. We'll DC IV fluids. Recent nausea, vomiting-improving. Appetite improved today. Possible diabetic gastroparesis-continue Reglan 10 mg IV scheduled 4 times a day Diabetes-continue to monitor Uvwb-Ayeol-bsy-dose sliding scale insulin Leukocytosis -without fever-resolved. Blood cultures negative to date. Urinalysis negative. GI panel negative. The patient is not on antibiotics. Diaphoresis without signs of infection-improved Consider concussion as cause of nausea and vomiting since she hit her head 2 weeks ago Prosthetic mitral valve on chronic anticoagulation. Coumadin monitored by pharmacy. Coronary artery disease-asymptomatic Ischemic cardiomyopathy -stable paroxysmal atrial fibrillation-sinus rhythm GERD with history of ulcer-restart Protonix, the patient states she had been taking this chronically. It is doubtful that it contributed to elevated liver enzymes. Overall, the patient appears to be doing a little better every day. We are advancing diet today. DC IV fluids this evening since she is taking in oral fluids better. May need to resume diuretics tomorrow. Greater than 35 minutes of time spent seeing and evaluating the patient and determining care plan today. Discussed with case management and the patient's nurse. MIKA WHITTAKER MD Nov 26, 2016 20:54
[2016-11-27 00:25] VITALS: BP 126/75; PULSE 59; RESP 18; TEMP 96.5; O2SAT 95
[2016-11-27] MEDS: METOCLOPRAMIDE 10mg/2ml INJECTION IV SCH ×3 (02:58→15:18)
--- NOTE | 2016-11-27 05:19 | NUR ---
Status Pt complained of sudden onset mid epigastric pain rated at 8/10 twice during shift. Percocet given twice with good results. Pt had ate snack of ice cream in middle of night. She stated the pain started before she started eating the ice cream. Pt fatigued during shift. Stated she had many visitors during the day. Up with 1 and GB. Bed alarm on. Will continue to monitor.
[2016-11-27 05:20] LABS: INR 2.71 (0.76-1.04); PROTHROMBIN TIME 29.5 SEC (9.31-12.49)
[2016-11-27] MEDS: PANTOPRAZOLE 40 MG TABLET PO SCH (06:16)
[2016-11-27] MEDS: LEVOTHYROXINE 150 MCG TABLET PO SCH (06:16)
[2016-11-27 07:46] VITALS: BP 125/80; PULSE 60; RESP 16; TEMP 95.7; O2SAT 95
--- NOTE | 2016-11-27 08:34 | NUR ---
Status Patient alert and oriented, delayed. Patient is fatigued, more then normal she reports. Breathing comfortably on RA. Denies pain at this time. Wishes to have lights turned off at this time to sleep.
[2016-11-27] MEDS: LACTULOSE 20 GM/30 ML UD PO SCH ×3 (08:49→21:08)
--- NOTE | 2016-11-27 09:55 | NUR ---
COUMADIN CONSULT (Recurring): Today's INR = 2.71. Will give Warfarin 2mg today. Will continue to monitor & make adjustments accordingly. Thank you.
[2016-11-27 09:56] LABS: BASOPHILS % (AUTO) 0.4 % (0-2); EOSINOPHILS # (AUTO) 0.4 T/MM3 (0-0.5); EOSINOPHILS % (AUTO) 4.7 % (0-4); HCT - HEMATOCRIT 41.3 % (36-46); HGB - HEMOGLOBIN 13.1 GM/DL (12-16); IMMATURE GRANULOCYTE # (AUTO) 0.02 T/MM3 (0.00-0.03); IMMATURE GRANULOCYTE % (AUTO) 0.3 % (0.0-0.5); LYMPHOCYTES # (AUTO) 1.6 T/MM3 (1-4.8); LYMPHOCYTES % (AUTO) 21.5 % (23-45); MEAN CORPUSCULAR HGB 28.4 UUG (26-34); MEAN CORPUSCULAR HGB CONC(MCHC 31.7 GM/DL (31-37); MEAN CORPUSCULAR VOLUME 89.6 UM3 (80-100); MEAN PLATELET VOLUME 10.6 UM3 (9.4-12.4); MONOCYTES # (AUTO) 1.2 T/MM3 (0-0.8); MONOCYTES % (AUTO) 15.8 % (0-9.0); NEUTROPHILS #(AUTO)-ABSOLUTE 4.3 T/MM3 (1.8-7.7); NEUTROPHILS % (AUTO) 57.3 % (33-66); RED BLOOD COUNT 4.61 M/MM3 (4.00-5.20); WBC - WHITE BLOOD COUNT 7.5 T/MM3 (4.5-11.0)
[2016-11-27 10:05] LABS: ALBUMIN 3.6 G/DL (3.5-5.0); ALBUMIN/GLOBULIN RATIO 1.1 RATIO (1.1-2.2); ALKALINE PHOSPHATASE 221 U/L (38-126); ALT (SGPT) 484 U/L (9-52); ANION GAP 13 MEQ/L (5-15); AST (SGOT) 518 U/L (14-36); BUN/CREATININE RATIO 22 RATIO (6-26); CALCIUM 8.4 MG/DL (8.4-10.2); CHLORIDE 105 MEQ/L (98-107); CO2 - CARBON DIOXIDE 23 MEQ/L (22-30); CREATININE 0.9 MG/DL (0.7-1.2); GLOMERULAR FILTRATION RATE 63; GLUCOSE 127 MG/DL (65-110); POTASSIUM 4.1 MEQ/L (3.6-5); SODIUM 141 MEQ/L (134-144); TOTAL PROTEIN 6.8 G/DL (6.3-8.2)
[2016-11-27 10:07] LABS: AMMONIA 59 UMOL/L (9-33)
--- NOTE | 2016-11-27 10:17 | NUR ---
Dietary Consult F/U Pt states she enjoyed the chocolate mighty shake and would like to receive them with each meal. Pt reports having eaten about 50% of cream of wheat and 1/2 piece of toast at breakfast today. Pt states she did not want the cream soups, but would like to try mashed potatoes and applesauce at lunch. Pt expressed interest in trying magic cup at 2 pm snack. FANS notified to send mighty shake with each meal and magic cup at [address] available at ext [phone]
--- NOTE | 2016-11-27 10:38 | NUR ---
CM CM IN TO VISIT PT. PT SISTER AT BEDSIDE. PT DENIES HOME NEEDS. PT AWARE TO CALL CM SHOULD NEEDS ARISE.
--- NOTE | 2016-11-27 11:28 | NUR ---
Activity Patient ambulated to right outside her patient room and then wished to turn around due to fatigue.
[2016-11-27] MEDS ORDERED: WARFARIN 2 MG TABLET PO SCH (12:00)
[2016-11-27] MEDS: INSULIN ASPART 100 UNIT/ML SQ PRN (14:48)
--- NOTE | 2016-11-27 15:04 | NUR ---
Dietary Consult F/U Pt states she likes the magic cup and would like them at 10, 2 and HS snacks. FANS notified to add magic cup for snacks. RD available at ext [phone]
[2016-11-27 15:33] VITALS: BP 141/85; PULSE 62; RESP 14; TEMP 96.3; O2SAT 94
--- NOTE | 2016-11-27 17:12 | PNPDOC ---
Subjective Date DATE: 11/27/16 TIME: 16:41 Subjective The patient is seen today accompanied by her sister. The patient states she's feeling better today. She's been able to eat a full liquid diet without nausea or abdominal pain. She asks if she can go home today. She still appears a little drowsy and ammonia level was up still this morning. She has been able to tolerate the oral lactulose. She denies any nausea. She has been having bowel movements. She is up walking without difficulties. Objective Vital Signs Vital signs Vital Signs Date Time Temp Pulse Resp B/P Pulse Ox O2 Delivery O2 Flow Rate FiO2 11/27/16 15:33 96.3 62 14 141/85 94 Room Air 11/25/16 00:11 1.00 GEN-mildly drowsy, sitting up on the side of the bed, no acute distress HEENT-sclera mildly icteric, oropharynx is moist NECK-supple CV-regular rate and rhythm CHEST-clear to auscultation bilaterally ABD-soft, nontender, nondistended with positive bowel sounds -no Almanza catheter EXT-no edema NEURO-no focal deficits, mildly drowsy but sitting up and talking. Oriented 3. SKIN-warm and dry and without rashes Height (Feet): 5 Height (Inches): 6.00 Weight (Kilograms): 115.800 Laboratory Laboratory Item Value Date Time Total Bilirubin 2.50 MG/DL H 11/27/16 0947 Aspartate Amino Transf (AST/SGOT) 518 U/L H 11/27/16 0947 Alanine Aminotransferase (ALT/SGPT) 484 U/L H 11/27/16 0947 Alkaline Phosphatase 221 U/L H 11/27/16 0947 Ammonia 59 UMOL/L H 11/27/16 0947 Conjugated Bilirubin 0.00 MG/DL 11/27/16 0947 Unconjugated Bilirubin 0.90 MG/DL 11/27/16 0947 Total Protein 6.8 G/DL 11/27/16 0947 Albumin 3.6 G/DL 11/27/16 0947 Globulin 3.2 G/DL 11/27/16 0947 Albumin/Globulin Ratio 1.1 RATIO 11/27/16 0947 Landon-Guerra Virus Capsid Ag IgG Ab Positive A 11/23/1634 Landon-Guerra Capsid Ag IgG Ab Index 7.84 OD Ratio H 4/8/17 0834 Landon-Guerra Virus Capsid Ag IgM Ab Negative 11/23/16833 E-B Virus Capsid Ag IgM Ab Index 0.14 OD Ratio 11/23/16833 Landon-Guerra Early Antigen IgG Ab Negative 11/23/16833 Landon-Guerra Early Ag IgG Ab Interp 0.05 OD Ratio 11/23/16833 Landon-Guerra Virus Nuclear Ag Ab Positive A 11/23/1634 Laboratory Tests 11/26/16 04:52 11/27/16 09:47 Laboratory Tests 11/26/16 04:52 11/27/16 09:47 Microbiology Microbiology Blood cultures negative 4 days CMV negative Assessment & Plan Problems: (1) Epigastric abdominal pain Status: Acute (2) Nausea & vomiting Status: Acute Qualifiers: Vomiting Intractability: unspecified (3) Hypoxia Status: Acute (4) Chronic combined systolic and diastolic heart failure Status: Chronic (5) Presence of prosthetic heart valve Status: Chronic Assessment & Plan: Mitral valve (6) Atherosclerotic heart disease of [place] coronary artery without angina pectoris Status: Chronic (7) Type 2 diabetes mellitus without complications Status: Chronic (8) Nonrheumatic mitral valve insufficiency Status: Chronic (9) Essential (primary) hypertension Status: Chronic (10) Ischemic cardiomyopathy Status: Chronic (11) Atrial fibrillation Status: Chronic Qualifiers: Atrial fibrillation type: paroxysmal Qualified Codes: I48.0 - Paroxysmal atrial fibrillation (12) Mixed hyperlipidemia Status: Chronic (13) Cardiac pacemaker Status: Chronic (14) MCFP (current) use of anticoagulants Status: Chronic (15) GERD (gastroesophageal reflux disease) (16) Hx of ulcer disease Status: Chronic (17) OA (osteoarthritis) Status: Chronic (18) Obesity Status: Chronic Qualifiers: Obesity type: due to excess calories Obesity severity: morbid Qualified Codes: E66.01 - Morbid (severe) obesity due to excess calories (19) Encephalopathy Assessment 11/27/2016 Impression/plan Acutely Elevated transaminases and bilirubin-improved, etiology still unknown. Liver sonogram showed fatty liver and enlargement of the liver, but no other abnormalities. Hepatitis a, B and C testing are negative. EBV shows past infection but not current infection. CMV is negative. GI panel is negative. Liver enzymes have been up and down and are down a little bit today. Elevated ammonia with mild hepatic encephalopathy -she is tolerating oral lactulose and is much more awake. Abdominal pain -CT abdomen 11/25/2016 showed questionable descending diverticulitis, but abdominal pain is epigastric and there is no fever or elevated white count. We'll continue to monitor. I doubt she has diverticulitis. Abdominal pain is completely resolved. Hypoxia -resolved Recent nausea, vomiting-resolved. Possible diabetic gastroparesis-change to oral Reglan Diabetes-advance to regular diabetic diet Leukocytosis -without fever-resolved. Blood cultures negative to date. Urinalysis negative. GI panel negative. The patient is not on antibiotics. Diaphoresis without signs of infection-improved Consider concussion as cause of nausea and vomiting since she hit her head 2 weeks ago Prosthetic mitral valve on chronic anticoagulation. Coumadin monitored by pharmacy. INR is therapeutic Coronary artery disease-asymptomatic Ischemic cardiomyopathy -stable paroxysmal atrial fibrillation-sinus rhythm GERD with history of ulcer-restart Protonix, the patient states she had been taking this chronically. It is doubtful that it contributed to elevated liver enzymes. Advance to regular diabetic diet. Change Reglan to oral. I did talk with cordage sales representative, Dr. Jesus Rae at phone number . I discussed with him the patient's onset of nausea vomiting and diarrhea on 11/18/2016. She also had epigastric pain at that time. She had normal liver enzymes initially. She had continued vomiting. She had a CT abdomen on 2016 that showed an enlarged liver but no other abnormalities. She was admitted on 11/21/2016 with inability to keep down oral medication. The following day she was found to have elevated ammonia level and liver enzymes were rechecked and AST was 944, ALT 520, bilirubin 2.4. Liver enzymes have been up and down since that time but are trending down. She underwent liver sonogram which showed gallbladder to be removed and she had hepatic steatosis and borderline hepatomegaly but no other abnormalities. Repeat CT of the abdomen without contrast on 11/24/2016 showed questionable early mild diverticulitis or colitis of the descending colon. This did not correspond with her area of pain and she was not having fevers or elevated white count. She also had a inguinal lymphadenopathy. She underwent a GI panel that was negative. HIV negative. CMV testing negative. Hepatitis A, B and C were negative. Landon-Guerra virus shows an old infection. She had a normal lipase. Dr. Rae stated that causes for acute elevation of liver enzymes would be viral hepatitis which was ruled out, toxic ingestion (but she is not on any new medications), possible clot to the portal vein and hepatic vein or IVC. This would be unlikely with her being anticoagulated on Coumadin. Other possibilities would be poor perfusion but she has not had hypotension. He recommended considering an echocardiogram as elevated right heart pressure and pulmonary hypertension could cause similar problems. We'll check an echocardiogram and proBNP. He was open to any further calls with questions and was open to transfer to [facility] if needed for further evaluation. Repeat liver enzymes tomorrow. Check Doppler of the portal vein, hepatic veins and IVC. Check echocardiogram. Possible dismissal in the next few days if improving. Greater than 45 minutes of time was spent seeing and evaluating the patient today and talking with campaign consultant. DVT Prophylaxis: Coumadin Code Status Full Code Hospital Course Summary Disclaimer The hospital course summary below is not to be considered part of the above Progress Note. Hospital Course Summary 11/21/16 Admit patient to outpatient observation under care of Dr. Taylor for nausea, vomiting and epigastric pain. Will obtain the following laboratory studies on admission, CBC, CMP, magnesium, hemoglobin A1c, lipase, CRP Will obtain a urinalysis on admission Will also obtain GI panel. If patient has any loose stools. Check INR given chronic anticoagulation. Will consult pharmacy for Coumadin dosing management Place patient on cardiac telemetry to monitor for dysrhythmias. Given significant cardiac history. KUB with upright as well as two-view chest x-ray. Given mild hypoxia on admission. Will continue with oxygen to maintain adequate saturations. Zofran and Phenergan as needed for nausea. Given significant epigastric tenderness. Will place patient on scheduled Protonix 40 milligrams IV twice a day She may have clear liquid only if her nausea is controlled Will monitor Accuchecks with meals and at bedtime SCDs to bilateral lower ext for DVT prophylaxis Recheck CBC and BMP tomorrow morning to follow blood counts, renal function and electrolytes Once home medications are reconciled will order appropriate medications Will discuss further plan of care with attending, Dr Taylor At time of discharge medical care is to return to PCP Dr Neff 11/22/16 Obtain an ABG and ammonia level to rule out further etiology for significant drowsiness Will discontinue the Dilaudid and Phenergan for possible contribution to drowsiness. In light of continued Epigastric pain and nausea will continue Protonix 40mg IV twice daily, Zofaran as needed and will also add Reglan 5mg IV every 6 hours scheduled. If no improvement, we will consider consulting general surgery. She is still on 1L nasal cannula to maintain her oxygen saturations. Suspicion that drowsiness could be related to IV medications. We will try to wean off of oxygen as she is able. Continue Coumadin for her cardiac co-morbidities, her INR is within range at 2.82, dosing management by pharmacy. Continue to monitor blood sugars, fasting BGM 141. Continue with sliding scale insulin. Continue to monitor routine labs. Creatinine did slightly increase to 1.3 today. This could be secondary to administration of Toradol. Will recheck CBC and BMP tomorrow morning to follow blood counts, renal function and electrolytes Continue SCDs for additional DVT prophylaxis. 11/23/2016 Impression/plan Elevated transaminases and bilirubin, new since admission. Etiology unknown. - Check gallbladder liver sonogram, hepatitis panel, CMV, EBV, HIV, GI panel Elevated ammonia with mild hepatic encephalopathy -start lactulose enema. Recent nausea, vomiting, diarrhea -check GI panel Hold Protonix as it can sometimes cause elevated liver enzymes Possible diabetic gastroparesis-continue Reglan 10 mg IV scheduled 4 times a day Diabetes-continue to monitor Utdz-Ubnjf-gmi-dose sliding scale insulin Leukocytosis -without fever-check blood cultures, urinalysis, chest x-ray, GI panel, lactate Diaphoresis without signs of infection Consider concussion as cause of nausea and vomiting since she hit her head 2 weeks ago Prosthetic mitral valve on chronic anticoagulation Elevated INR in the patient on Coumadin-supratherapeutic INR likely related to acute liver enzyme elevation-discussed with pharmacy and we'll hold Coumadin and continue daily INR Coronary artery disease Ischemic cardiomyopathy paroxysmal atrial fibrillation Greater than 45 minutes of time was spent seeing and evaluating the patient today. 11/24/2016 Impression/plan Acutely Elevated transaminases and bilirubin-improved, etiology still unknown. Liver sonogram showed fatty liver and enlargement of the liver, but no other abnormalities. hepatitis panel, CMV, EBV, are all pending. GI panel is negative. Elevated ammonia with mild hepatic encephalopathy -improved post lactulose enemas. Monitor at this time. No further lactulose for now as it may be contributing to abdominal discomfort Abdominal pain -CT abdomen prior to admission showed no significant abnormalities other than an enlarged right inguinal node. Check KUB today. Hypoxia -check chest x-ray today, chest x-ray yesterday showed cardiomegaly and official report is pending Recent nausea, vomiting-improving Possible diabetic gastroparesis-continue Reglan 10 mg IV scheduled 4 times a day Diabetes-continue to monitor Saby-Vsdky-zha-dose sliding scale insulin Leukocytosis -without fever-improved today. Blood cultures negative to date. Urinalysis negative. GI panel negative. The patient is not on antibiotics. Diaphoresis without signs of infection-improved Consider concussion as cause of nausea and vomiting since she hit her head 2 weeks ago Prosthetic mitral valve on chronic anticoagulation Elevated INR in the patient on Coumadin-supratherapeutic INR yesterday, likely related to acute liver enzyme elevation-discussed with pharmacy yesterday and Coumadin held. INR has improved today. Coronary artery disease Ischemic cardiomyopathy paroxysmal atrial fibrillation GERD with history of ulcer-restart Protonix, the patient states she had been taking this chronically. It is doubtful that it contributed to elevated liver enzymes. Greater than 45 minutes of time was spent seeing and evaluating the patient today. 11/25/2016 Impression/plan Acutely Elevated transaminases and bilirubin-improved, etiology still unknown. Liver sonogram showed fatty liver and enlargement of the liver, but no other abnormalities. hepatitis panel, EBV, are all pending. GI panel is negative. CMV is negative. Liver enzymes are trending down for the past 2 days. Elevated ammonia with mild hepatic encephalopathy -improved post lactulose enemas. Monitor at this time. No further lactulose for now as it may be contributing to abdominal discomfort. Clinically encephalopathy is markedly improved. Abdominal pain -CT abdomen yesterday showed questionable descending diverticulitis. On exam today the patient has no discomfort other than mildly in the epigastrium. No fever. No elevated white count. We'll monitor at this time off of antibiotics. Hypoxia -mild pleural effusion seen on CT abdomen and pelvis. She is drinking better today. We'll DC IV fluids. Recent nausea, vomiting-improving. Appetite improved today. Possible diabetic gastroparesis-continue Reglan 10 mg IV scheduled 4 times a day Diabetes-continue to monitor Gnkz-Kjoxs-olz-dose sliding scale insulin Leukocytosis -without fever-resolved. Blood cultures negative to date. Urinalysis negative. GI panel negative. The patient is not on antibiotics. Diaphoresis without signs of infection-improved Consider concussion as cause of nausea and vomiting since she hit her head 2 weeks ago Prosthetic mitral valve on chronic anticoagulation. Coumadin monitored by pharmacy. Coronary artery disease-asymptomatic Ischemic cardiomyopathy -stable paroxysmal atrial fibrillation-sinus rhythm GERD with history of ulcer-restart Protonix, the patient states she had been taking this chronically. It is doubtful that it contributed to elevated liver enzymes. Overall, the patient appears to be doing a little better every day. We are advancing diet today. DC IV fluids this evening since she is taking in oral fluids better. May need to resume diuretics tomorrow. Greater than 35 minutes of time spent seeing and evaluating the patient and determining care plan today. Discussed with case management and the patient's nurse. 11/26/2016 Impression/plan Acutely Elevated transaminases and bilirubin-improved, etiology still unknown. Liver sonogram showed fatty liver and enlargement of the liver, but no other abnormalities. Hepatitis a, B and C testing are negative. EBV shows past infection but not current infection. CMV is negative. GI panel is negative. Liver enzymes are up again today. Elevated ammonia with mild hepatic encephalopathy -will try oral lactulose today 1 dose. Abdominal pain -CT abdomen yesterday showed questionable descending diverticulitis, but abdominal pain is epigastric and there is no fever or elevated white count. We'll continue to monitor. Hypoxia -mild pleural effusion seen on CT abdomen and pelvis. Oral intake is improving. IV fluids were discontinued yesterday. Recent nausea, vomiting-improving. Appetite improving Possible diabetic gastroparesis-continue Reglan 10 mg IV scheduled 4 times a day Diabetes-continue to monitor Llyn-Sgjdj-hqh-dose sliding scale insulin Leukocytosis -without fever-resolved. Blood cultures negative to date. Urinalysis negative. GI panel negative. The patient is not on antibiotics. Diaphoresis without signs of infection-improved Consider concussion as cause of nausea and vomiting since she hit her head 2 weeks ago Prosthetic mitral valve on chronic anticoagulation. Coumadin monitored by pharmacy. INR is therapeutic Coronary artery disease-asymptomatic Ischemic cardiomyopathy -stable paroxysmal atrial fibrillation-sinus rhythm GERD with history of ulcer-restart Protonix, the patient states she had been taking this chronically. It is doubtful that it contributed to elevated liver enzymes. Continue to advance diet as tolerated. Repeat lab work tomorrow. Scopolamine patch was discontinued in case this is contributing somewhat to drowsiness. Over 35 minutes of time was spent seeing and evaluating the patient in determining care plan today. MIKA WHITTAKER MD Nov 27, 2016 16:44
--- NOTE | 2016-11-27 17:43 | NUR ---
Status Patient continues to be weak and fatigued. Up with assist of 1. Loose stools. No changes this shift.
[2016-11-27] MEDS: SERTRALINE 50 MG TABLET PO SCH (21:53)
[2016-11-28] VITALS: BP 136/83; PULSE 61; RESP 20; TEMP 96.5; O2SAT 95
--- NOTE | 2016-11-28 02:58 | NUR ---
BLADDER SCAN: PT HAS HAD LITTLE URINE OUTPUT. BLADDER SCANNED PT, 386 MLS. BLADDER SCANNED PT LATER AFTER A NUMBER OF VOIDS, ONLY 41 MLS OF URINE RETENTION.
--- NOTE | 2016-11-28 04:52 | NUR ---
SHIFT SUMMARY: PT IS A&OX2-3, IS DELAYED IN ANSWERING QUESTIONS, COOPERATIVE AND FRIENDLY. PT WAS UP HOURLY AT THE BEGINNING OF MY SHIFT WITH SMALL URINE OUTPUT; BLADDER SCANNED PT (SEE PREVIOUS NURSE NOTES). PT LIKES LIGHTS OUT WHEN GOING TO SLEEP. PT IS ON RA, IV LOCKED, AND DENIES PAIN. CALL LIGHT WITHIN REACH, BED ALARM ON.
[2016-11-28 05:30] LABS: HCT - HEMATOCRIT 39.1 % (36-46); HGB - HEMOGLOBIN 12.3 GM/DL (12-16); MEAN CORPUSCULAR HGB 28.4 UUG (26-34); MEAN CORPUSCULAR HGB CONC(MCHC 31.5 GM/DL (31-37); MEAN CORPUSCULAR VOLUME 90.3 UM3 (80-100); MEAN PLATELET VOLUME 10.8 UM3 (9.4-12.4); RED BLOOD COUNT 4.33 M/MM3 (4.00-5.20); WBC - WHITE BLOOD COUNT 7.1 T/MM3 (4.5-11.0)
[2016-11-28 05:34] LABS: INR 2.53 (0.76-1.04); PROTHROMBIN TIME 27.6 SEC (9.31-12.49)
[2016-11-28 05:37] LABS: AMMONIA < 9 UMOL/L (9-33)
[2016-11-28 05:41] LABS: ALBUMIN 3.4 G/DL (3.5-5.0); ALBUMIN/GLOBULIN RATIO 1.1 RATIO (1.1-2.2); ALKALINE PHOSPHATASE 217 U/L (38-126); ALT (SGPT) 374 U/L (9-52); ANION GAP 12 MEQ/L (5-15); AST (SGOT) 312 U/L (14-36); BUN/CREATININE RATIO 20 RATIO (6-26); CALCIUM 8.6 MG/DL (8.4-10.2); CHLORIDE 104 MEQ/L (98-107); CO2 - CARBON DIOXIDE 25 MEQ/L (22-30); CREATININE 0.9 MG/DL (0.7-1.2); GLOMERULAR FILTRATION RATE 63; GLUCOSE 94 MG/DL (65-110); POTASSIUM 4.2 MEQ/L (3.6-5); SODIUM 141 MEQ/L (134-144); TOTAL PROTEIN 6.5 G/DL (6.3-8.2)
[2016-11-28] MEDS: PANTOPRAZOLE 40 MG TABLET PO SCH (05:46)
[2016-11-28 05:47] LABS: PROBNP 1370 PG/ML (0-175)
[2016-11-28] MEDS: LEVOTHYROXINE 150 MCG TABLET PO SCH (05:51)
[2016-11-28 06:31] LABS: BAND NEUTROPHILS # 0.1 T/MM3; BASOPHILS # (MANUAL) 0.1 T/MM3 (0-0.2); EOSINOPHILS # (MANUAL) 0.2 T/MM3 (0-0.5); LYMPHOCYTES # (MANUAL) 1.8 T/MM3 (1-4.8); MONOCYTES # (MANUAL) 0.6 T/MM3 (0-0.8); NEUTROPHILS #(MANUAL)-ABSOLUTE 4.3 T/MM3 (1.8-7.7); TOTAL CELLS COUNTED 100 %
[2016-11-28 06:32] LABS: ANISOCYTOSIS 1+; POIKILOCYTOSIS 1+
[2016-11-28 07:39] VITALS: BP 122/73; PULSE 60; RESP 16; TEMP 96.3; O2SAT 94
[2016-11-28] MEDS: LACTULOSE 20 GM/30 ML UD PO SCH ×2 (08:16→15:01)
--- NOTE | 2016-11-28 09:24 | DI ---
Indication: ITS.REASON: elevated liver enzymes PROCEDURE: US ABD/PELVIC DOPPER COMPLETE: Encounter: Initial Comparison: Abdominal ultrasound dated July 20, [address] abdomen/pelvis dated November 24, 2016 Technique: Grayscale and color Doppler sonographic imaging of the abdomen was performed with attention to the portal vein Findings: To and fro flow within the main portal vein with increased flow velocities up to 60 cm/s. Normal flow pattern and direction within the hepatic veins. Hepatic artery is patent. Splenic artery and vein are patent. Portal vein diameter is 1 cm. Impression: Elevated flow velocities with periodic reversal of flow within the main portal vein consistent with significant portal hypertension. There is a preliminary report by [employer]. .
--- NOTE | 2016-11-28 09:59 | NUR ---
WARFARIN CONSULT S: 66 y/o F on warfarin for afib. Home dose is 5 mg PO daily. Goal INR 2-3. O: Date INR Warfarin Dose 11/21 2.88 4 mg 11/22 2.82 4 mg 11/23 4.34 HELD 11/24 3.64 HELD 11/25 2.93 2 mg 11/26 2.88 2 mg 11/27 2.71 2 mg 11/28 2.53 PLAN: 2.5 mg A/P: INR therapeutic. Will order warfarin 2.5 mg PO x 1 today. No significant drug-drug interactions. Will continue to monitor & make adjustments accordingly. Thank you for the consult. Stephanie Lizarraga, PharmD, BCPS
[2016-11-28] MEDS: INSULIN ASPART 100 UNIT/ML SQ PRN (10:28)
[2016-11-28] MEDS ORDERED: WARFARIN 2.5 MG TABLET PO ONE (12:00)
--- NOTE | 2016-11-28 13:20 | NUR ---
Dietary Consult F/U Diet Order: 1800 calories consistent carb diet Pt reports having eaten 100% of her breakfast and was looking forward to her lunch. Pt states her appetite is greatly improved. Pt states she no longer needs the supplements of mighty shakes or magic cups FANS notified to discontinue supplements. RD available at ext [phone]
[2016-11-28] MEDS ORDERED: LACT10SO9 PO (15:29)
[2016-11-28] MEDS ORDERED: WARF2TAB58 PO (15:32)
--- NOTE | 2016-11-28 15:35 | DSPDOC ---
General Date Date DATE: 11/28/16 TIME: 15:13 Attending Physician Caitlyn Mcguire MD Admitting Physician Caitlyn Mcguire MD Consulting Physician Admitting Diagnosis Nausea and vomiting Discharge Diagnosis Elevated liver enzymes, epigastric/abd pain,nausea , vomiting, encephalopathy Laboratory Laboratory Tests Test 11/27/16 04:46 11/27/16 05:57 11/27/16 09:47 11/27/16 10:03 Prothromb Time International Ratio 2.71 (0.76-1.04) Glucometer 92mg/dL (65-110) 132mg/dL (65-110) White Blood Count 7.5T/MM3 (4.5-11.0) Red Blood Count 4.61M/MM3 (4.00-5.20) Hemoglobin 13.1GM/DL (12-16) Hematocrit 41.3% (36-46) Mean Corpuscular Volume 89.6UM3 (80-100) Mean Corpuscular Hemoglobin 28.4UUG (26-34) Mean Corpuscular Hemoglobin Concent 31.7GM/DL (31-37) RDW Standard Deviation 60.5FL (36.9-50.2) Platelet Count 269T/MM3 (130-400) Mean Platelet Volume 10.6UM3 (9.4-12.4) Immature Granulocyte % (Auto) 0.3% (0.0-0.5) Neutrophils (%) (Auto) 57.3% (33-66) Lymphocytes (%) (Auto) 21.5% (23-45) Monocytes (%) (Auto) 15.8% (0-9.0) Eosinophils (%) (Auto) 4.7% (0-4) Basophils (%) (Auto) 0.4% (0-2) Absolute Immature Granulocyte (auto 0.02T/MM3 (0.00-0.03) Absolute Neutrophils (auto) 4.3T/MM3 (1.8-7.7) Absolute Lymphocytes (auto) 1.6T/MM3 (1-4.8) Absolute Monocytes (auto) 1.2T/MM3 (0-0.8) Absolute Eosinophils (auto) 0.4T/MM3 (0-0.5) Absolute Basophils (auto) 0.0T/MM3 (0-0.2) Turbidity < 20 (0-20) Sodium Level 141MEQ/L (134-144) Potassium Level 4.1MEQ/L (3.6-5) Chloride Level 105MEQ/L (98-107) Carbon Dioxide Level 23MEQ/L (22-30) Anion Gap 13MEQ/L (5-15) Blood Urea Nitrogen 20.0MG/DL (7-17) Creatinine 0.9MG/DL (0.7-1.2) Glomerular Filtration Rate Calc 63 BUN/Creatinine Ratio 22RATIO (6-26) Glucose Level 127MG/DL (65-110) Calculated Osmolality 276MOSM/KG (261-280) Calcium Level 8.4MG/DL (8.4-10.2) Total Bilirubin 2.50MG/DL (0.20-1.30) Conjugated Bilirubin 0.00MG/DL (0.00-0.30) Unconjugated Bilirubin 0.90MG/DL (0.00-1.10) Icterus Index < 2 (0-7) Aspartate Amino Transf (AST/SGOT) 518U/L (14-36) Alanine Aminotransferase (ALT/SGPT) 484U/L (9-52) Alkaline Phosphatase 221U/L (38-126) Ammonia 59UMOL/L (9-33) Total Protein 6.8G/DL (6.3-8.2) Albumin 3.6G/DL (3.5-5.0) Globulin 3.2G/DL (2.4-3.6) Albumin/Globulin Ratio 1.1RATIO (1.1-2.2) Chemistry Specimen Hemolysis < 15 (0-25) Test 11/27/16 14:19 11/27/16 20:16 11/28/16 05:06 11/28/16 05:07 Glucometer 220mg/dL (65-110) 120mg/dL (65-110) White Blood Count 7.1T/MM3 (4.5-11.0) Red Blood Count 4.33M/MM3 (4.00-5.20) Hemoglobin 12.3GM/DL (12-16) Hematocrit 39.1% (36-46) Mean Corpuscular Volume 90.3UM3 (80-100) Mean Corpuscular Hemoglobin 28.4UUG (26-34) Mean Corpuscular Hemoglobin Concent 31.5GM/DL (31-37) RDW Standard Deviation 60.6FL (36.9-50.2) Platelet Count 245T/MM3 (130-400) Mean Platelet Volume 10.8UM3 (9.4-12.4) Neutrophils % (Manual) 61.0% (33-66) Band Neutrophils % 1.0% (0-6) Lymphocytes % (Manual) 25.0% (23-45) Monocytes % (Manual) 9.0% (0-9.0) Eosinophils % (Manual) 3.0% (0-4) Basophils % (Manual) 1.0% (0-2) Absolute Neutrophils (Manual) 4.3T/MM3 (1.8-7.7) Band Neutrophils # 0.1T/MM3 Lymphocytes # (Manual) 1.8T/MM3 (1-4.8) Monocytes # (Manual) 0.6T/MM3 (0-0.8) Eosinophils # (Manual) 0.2T/MM3 (0-0.5) Basophils # (Manual) 0.1T/MM3 (0-0.2) Poikilocytosis 1+ Anisocytosis 1+ Red Cell Morphology Comment Abnormal Turbidity < 20 (0-20) Sodium Level 141MEQ/L (134-144) Potassium Level 4.2MEQ/L (3.6-5) Chloride Level 104MEQ/L (98-107) Carbon Dioxide Level 25MEQ/L (22-30) Anion Gap 12MEQ/L (5-15) Blood Urea Nitrogen 18.0MG/DL (7-17) Creatinine 0.9MG/DL (0.7-1.2) Glomerular Filtration Rate Calc 63 BUN/Creatinine Ratio 20RATIO (6-26) Glucose Level 94MG/DL (65-110) Calculated Osmolality 273MOSM/KG (261-280) Calcium Level 8.6MG/DL (8.4-10.2) Total Bilirubin 2.10MG/DL (0.20-1.30) Icterus Index < 2 (0-7) Aspartate Amino Transf (AST/SGOT) 312U/L (14-36) Alanine Aminotransferase (ALT/SGPT) 374U/L (9-52) Alkaline Phosphatase 217U/L (38-126) Ammonia < 9UMOL/L (9-33) VB-Iys-K-Type Natriuretic Peptide 1370PG/ML (0-175) Total Protein 6.5G/DL (6.3-8.2) Albumin 3.4G/DL (3.5-5.0) Globulin 3.1G/DL (2.4-3.6) Albumin/Globulin Ratio 1.1RATIO (1.1-2.2) Chemistry Specimen Hemolysis < 15 (0-25) Prothromb Time International Ratio 2.53 (0.76-1.04) Test 11/28/16 06:18 11/28/16 10:24 Glucometer 90mg/dL (65-110) 160mg/dL (65-110) History of Present Illness Lincoln is a 66-year-old female who currently sees Dr. Kenneth Cancino for her primary care. Patient has not been feeling well since Friday11/18/16 in which she woke up having diarrhea, nausea and vomiting. He presented to the emergency room on 11/18 for acute evaluation. At that time she was having some palpitations and was concerned she was in atrial fibrillation. She had a complete evaluation and was discharged home to follow-up with Dr. Khan at his office. On Friday , 11/[address] Khan at his office, however, was not found to be in atrial fibrillation. She was discharged at that time. She then presented to the emergency room again last evening 11/20/16 with continued abdominal discomfort and nausea. Laboratory studies and CT scan were obtained. WBC count was found to be normal at 9.2, hemoglobin 14.6, hematocrit 46.4, platelet count 279. Sodium is normal at 142, potassium 3.6, chloride 96, BUN 17, creatinine 1.0, glucose 174. Lipase was normal at 147. A urinalysis was obtained showing a trace protein, 1+ blood, 3-5 WBCs, otherwise unremarkable. Given her continued pain. A CT scan of the abdomen and pelvis was obtained showing no acute process. She was given IV fluids for hydration, Zofran for nausea, GI cocktail for epigastric pain and Percocet for pain control. She was then discharged home and instructed to follow with primary care today. She did see Dr. Helms the today with continued symptoms. Due to the ongoing nausea and vomiting. The hospitalist services were contacted and accepted patient directly for an outpatient admission for further evaluation and treatment. Lincoln is seen today on initially examination she is alert and orientated. She was found to be borderline hypoxic on arrival with room air saturations 88- 90% and was placed on 1 liter of oxygen. She continues to complain of nausea and epigastric discomfort. Reports she is unable to taken any food or liquids due to the nausea. She does not appear to be in any acute distress. Her abdomen is soft, tender at the epigastric area. Reports diarrhea has subsided. Admission vital signs reviewed. Temperature 97.2, pulse 99, respiratory 24, blood pressure 112/67, room air saturations 88%. Did discuss advanced directives and she does wish to be a full code. Hospital Course 11/21/16 Admit patient to outpatient observation under care of Dr. Taylor for nausea, vomiting and epigastric pain. Will obtain the following laboratory studies on admission, CBC, CMP, magnesium, hemoglobin A1c, lipase, CRP Will obtain a urinalysis on admission Will also obtain GI panel. If patient has any loose stools. Check INR given chronic anticoagulation. Will consult pharmacy for Coumadin dosing management Place patient on cardiac telemetry to monitor for dysrhythmias. Given significant cardiac history. KUB with upright as well as two-view chest x-ray. Given mild hypoxia on admission. Will continue with oxygen to maintain adequate saturations. Zofran and Phenergan as needed for nausea. Given significant epigastric tenderness. Will place patient on scheduled Protonix 40 milligrams IV twice a day She may have clear liquid only if her nausea is controlled Will monitor Accuchecks with meals and at bedtime SCDs to bilateral lower ext for DVT prophylaxis Recheck CBC and BMP tomorrow morning to follow blood counts, renal function and electrolytes Once home medications are reconciled will order appropriate medications Will discuss further plan of care with attending, Dr Taylor At time of discharge medical care is to return to PCP Dr Helms 11/22/16 Obtain an ABG and ammonia level to rule out further etiology for significant drowsiness Will discontinue the Dilaudid and Phenergan for possible contribution to drowsiness. In light of continued Epigastric pain and nausea will continue Protonix 40mg IV twice daily, Zofaran as needed and will also add Reglan 5mg IV every 6 hours scheduled. If no improvement, we will consider consulting general surgery. She is still on 1L nasal cannula to maintain her oxygen saturations. Suspicion that drowsiness could be related to IV medications. We will try to wean off of oxygen as she is able. Continue Coumadin for her cardiac co-morbidities, her INR is within range at 2.82, dosing management by pharmacy. Continue to monitor blood sugars, fasting BGM 141. Continue with sliding scale insulin. Continue to monitor routine labs. Creatinine did slightly increase to 1.3 today. This could be secondary to administration of Toradol. Will recheck CBC and BMP tomorrow morning to follow blood counts, renal function and electrolytes Continue SCDs for additional DVT prophylaxis. 11/23/2016 Impression/plan Elevated transaminases and bilirubin, new since admission. Etiology unknown. - Check gallbladder liver sonogram, hepatitis panel, CMV, EBV, HIV, GI panel Elevated ammonia with mild hepatic encephalopathy -start lactulose enema. Recent nausea, vomiting, diarrhea -check GI panel Hold Protonix as it can sometimes cause elevated liver enzymes Possible diabetic gastroparesis-continue Reglan 10 mg IV scheduled 4 times a day Diabetes-continue to monitor Crel-Usrpr-wwh-dose sliding scale insulin Leukocytosis -without fever-check blood cultures, urinalysis, chest x-ray, GI panel, lactate Diaphoresis without signs of infection Consider concussion as cause of nausea and vomiting since she hit her head 2 weeks ago Prosthetic mitral valve on chronic anticoagulation Elevated INR in the patient on Coumadin-supratherapeutic INR likely related to acute liver enzyme elevation-discussed with pharmacy and we'll hold Coumadin and continue daily INR Coronary artery disease Ischemic cardiomyopathy paroxysmal atrial fibrillation Greater than 45 minutes of time was spent seeing and evaluating the patient today. 11/24/2016 Impression/plan Acutely Elevated transaminases and bilirubin-improved, etiology still unknown. Liver sonogram showed fatty liver and enlargement of the liver, but no other abnormalities. hepatitis panel, CMV, EBV, are all pending. GI panel is negative. Elevated ammonia with mild hepatic encephalopathy -improved post lactulose enemas. Monitor at this time. No further lactulose for now as it may be contributing to abdominal discomfort Abdominal pain -CT abdomen prior to admission showed no significant abnormalities other than an enlarged right inguinal node. Check KUB today. Hypoxia -check chest x-ray today, chest x-ray yesterday showed cardiomegaly and official report is pending Recent nausea, vomiting-improving Possible diabetic gastroparesis-continue Reglan 10 mg IV scheduled 4 times a day Diabetes-continue to monitor Gurn-Zsudr-tnp-dose sliding scale insulin Leukocytosis -without fever-improved today. Blood cultures negative to date. Urinalysis negative. GI panel negative. The patient is not on antibiotics. Diaphoresis without signs of infection-improved Consider concussion as cause of nausea and vomiting since she hit her head 2 weeks ago Prosthetic mitral valve on chronic anticoagulation Elevated INR in the patient on Coumadin-supratherapeutic INR yesterday, likely related to acute liver enzyme elevation-discussed with pharmacy yesterday and Coumadin held. INR has improved today. Coronary artery disease Ischemic cardiomyopathy paroxysmal atrial fibrillation GERD with history of ulcer-restart Protonix, the patient states she had been taking this chronically. It is doubtful that it contributed to elevated liver enzymes. Greater than 45 minutes of time was spent seeing and evaluating the patient today. 11/25/2016 Impression/plan Acutely Elevated transaminases and bilirubin-improved, etiology still unknown. Liver sonogram showed fatty liver and enlargement of the liver, but no other abnormalities. hepatitis panel, EBV, are all pending. GI panel is negative. CMV is negative. Liver enzymes are trending down for the past 2 days. Elevated ammonia with mild hepatic encephalopathy -improved post lactulose enemas. Monitor at this time. No further lactulose for now as it may be contributing to abdominal discomfort. Clinically encephalopathy is markedly improved. Abdominal pain -CT abdomen yesterday showed questionable descending diverticulitis. On exam today the patient has no discomfort other than mildly in the epigastrium. No fever. No elevated white count. We'll monitor at this time off of antibiotics. Hypoxia -mild pleural effusion seen on CT abdomen and pelvis. She is drinking better today. We'll DC IV fluids. Recent nausea, vomiting-improving. Appetite improved today. Possible diabetic gastroparesis-continue Reglan 10 mg IV scheduled 4 times a day Diabetes-continue to monitor Faok-Nqajh-mox-dose sliding scale insulin Leukocytosis -without fever-resolved. Blood cultures negative to date. Urinalysis negative. GI panel negative. The patient is not on antibiotics. Diaphoresis without signs of infection-improved Consider concussion as cause of nausea and vomiting since she hit her head 2 weeks ago Prosthetic mitral valve on chronic anticoagulation. Coumadin monitored by pharmacy. Coronary artery disease-asymptomatic Ischemic cardiomyopathy -stable paroxysmal atrial fibrillation-sinus rhythm GERD with history of ulcer-restart Protonix, the patient states she had been taking this chronically. It is doubtful that it contributed to elevated liver enzymes. Overall, the patient appears to be doing a little better every day. We are advancing diet today. DC IV fluids this evening since she is taking in oral fluids better. May need to resume diuretics tomorrow. Greater than 35 minutes of time spent seeing and evaluating the patient and determining care plan today. Discussed with case management and the patient's nurse. 11/26/2016 Impression/plan Acutely Elevated transaminases and bilirubin-improved, etiology still unknown. Liver sonogram showed fatty liver and enlargement of the liver, but no other abnormalities. Hepatitis a, B and C testing are negative. EBV shows past infection but not current infection. CMV is negative. GI panel is negative. Liver enzymes are up again today. Elevated ammonia with mild hepatic encephalopathy -will try oral lactulose today 1 dose. Abdominal pain -CT abdomen yesterday showed questionable descending diverticulitis, but abdominal pain is epigastric and there is no fever or elevated white count. We'll continue to monitor. Hypoxia -mild pleural effusion seen on CT abdomen and pelvis. Oral intake is improving. IV fluids were discontinued yesterday. Recent nausea, vomiting-improving. Appetite improving Possible diabetic gastroparesis-continue Reglan 10 mg IV scheduled 4 times a day Diabetes-continue to monitor Jeyu-Hugzn-rmb-dose sliding scale insulin Leukocytosis -without fever-resolved. Blood cultures negative to date. Urinalysis negative. GI panel negative. The patient is not on antibiotics. Diaphoresis without signs of infection-improved Consider concussion as cause of nausea and vomiting since she hit her head 2 weeks ago Prosthetic mitral valve on chronic anticoagulation. Coumadin monitored by pharmacy. INR is therapeutic Coronary artery disease-asymptomatic Ischemic cardiomyopathy -stable paroxysmal atrial fibrillation-sinus rhythm GERD with history of ulcer-restart Protonix, the patient states she had been taking this chronically. It is doubtful that it contributed to elevated liver enzymes. Continue to advance diet as tolerated. Repeat lab work tomorrow. Scopolamine patch was discontinued in case this is contributing somewhat to drowsiness. Over 35 minutes of time was spent seeing and evaluating the patient in determining care plan today. 11/28/16 DISCHARGE Patient seen and evaluated today. She states her pain has improved, in fact is resolved at this point. She has no nausea or vomiting. Tolerated meals. She has homecare set up with her and also with her sister who is in town for the next 2-3 weeks. Liver enzymes are trending downward, bilirubin also trending downward. CT abdomen and pelvis and ultrasound Doppler of liver obtained. Significant variance is hepatic vein which has reversing flow with what appears to be dysfunction of right-sided heart. Cardiac ultrasound is pending at this time, not having been read yet today. Patient is very eager to leave and would like to follow up on her own in regards to outstanding cardiac ultrasound. She normally sees Dr. Helms and I have encouraged her to set up an appointment for Friday to see Dr. Helms make sure that both her symptoms and her lab results are continuing to improve. She is sent with an order for CBC CMP, NH3 to be drawn Friday before she sees her physician. Coumadin dose is been decreased due to liver dysfunction, we will also check an INR. Sd Brooks MD Problems: (1) Epigastric abdominal pain Status: Acute (2) Nausea & vomiting Status: Acute (3) Hypoxia Status: Acute (4) Chronic combined systolic and diastolic heart failure Status: Chronic (5) Presence of prosthetic heart valve Status: Chronic Assessment & Plan: Mitral valve (6) Atherosclerotic heart disease of koi coronary artery without angina pectoris Status: Chronic (7) Type 2 diabetes mellitus without complications Status: Chronic (8) Nonrheumatic mitral valve insufficiency Status: Chronic (9) Essential (primary) hypertension Status: Chronic (10) Ischemic cardiomyopathy Status: Chronic (11) Atrial fibrillation Status: Chronic (12) Mixed hyperlipidemia Status: Chronic (13) Cardiac pacemaker Status: Chronic (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 MUST REMAIN UPRIGHT-SEATED OR STANDING. 11/21/16 Liraglutide (Victoza 2-Marc) 18 Mg/Syringe Inj, 1.2 MG SQ 1500 09/02/16 Metoprolol Tartrate (Metoprolol Tartrate) 25 Mg Tablet, 50 MG PO BID 09/02/16 Glimepiride (Glimepiride) 4 Mg Tablet, 4 MG PO DAILY 09/02/16 Sertraline (Zoloft) 50 Mg Tablet, 50 MG PO HS 04/24/16 Losartan Potassium (Losartan Potassium) 25 Mg Tablet, 25 MG PO DAILY 04/24/16 Cholecalciferol (Vitamin D3) (Vitamin D3) 2,000 Unit Capsule, 2000 UNIT PO DAILY 04/23/16 Pantoprazole Sodium (Pantoprazole Sodium) 40 Mg Tablet.dr, 40 MG PO ACB 04/23/16 Simvastatin (Simvastatin) 20 Mg Tablet, 20 MG PO WS 04/23/16 Clonazepam (Clonazepam) 0.5 Mg Tablet, 0.5 MG PO HS Y for PRN ORDERS 05/12/13 Levothyroxine Sodium (Levothyroxine Sodium) 150 Mcg Tablet, 150 MCG PO ACB 05/11/13 Oxycodone Hcl/Acetaminophen (Percocet 7.5/325 Mg Tablet) 1 Tab Tablet, 1 TAB PO Q4-6H Y for PAIN 06/16/12 Potassium Chloride (Potassium Chloride) 20 Meq Tab.prt.sr, 20 MEQ PO DAILY 06/16/12 Bumetanide (Bumex) 2 Mg Tablet, 2 MG PO BID 06/16/12 Spironolactone (Spironolactone) 50 Mg Tablet, 50 MG PO DAILY 03/07/10 Warfarin Sodium (Coumadin) 5 Mg Tablet, 5 MG PO DAILY 03/07/10 Face to Face Encounter I met with patient on the day of dismissal and discussed follow up appointments , medications, and safety plan. Discharge Disposition To home with . Copies To 1: KENNETH HELMS CHARLES E MD Nov 28, 2016 15:16
--- NOTE | 2016-11-28 15:37 | NUR ---
CM CM IN TO VISIT PT AND SISTER. PT WILL DC HOME TODAY. PT/FAMILY HAVE DENIED NEEDS. PT/FAMILY AWARE TO CALL CM SHOULD NEEDS ARISE.
--- NOTE | 2016-11-28 18:14 | NUR ---
status/ DC Pt A/O x3, V/S stable on RA. Pt ambulating well standby assist, becomes a little SOA with long distances. Urine output good for shift, multiple BM this shift. Pt denies much pain and refused any PRN pain meds. Pt diet AAT and no N/V noted, ate well during the day. DC to home at 1700, IV site taken out, cath tip intact. Pt dressed and all belongings gathered. DC instructions given to pt and family, meds called in to Rx. No new questions at this time. Pt taken to front door at 1715 via WC.
--- NOTE | 2016-11-29 11:00 | ECHOF ---
ECHOCARDIOGRAM REPORT DATE OF PROCEDURE November 27, [address] Caitlyn Mcguire This is a two-dimensional echo with spectral Doppler, color-flow and M-mode. It was obtained in a patient with pulmonary hypertension, heart failure and mitral valve repair. Left atrium is dilated. Left ventricle end-diastolic dimension is normal. Left ventricular wall thickness is normal. LV systolic function is reduced with global hypokinesia with ejection fraction of about 30%. Right atrium is dilated. Right ventricle is dilated and hypokinetic. Aortic root dimension is normal. Mitral valve appears to show mitral valve repair with normal mitral valve leaflets with mild mitral regurgitation. Aortic valve is a trileaflet structure with no stenosis or insufficiency. Tricuspid valve shows severe tricuspid regurgitation with estimated pulmonary artery systolic pressure of 23. Pulmonary valve shows mild pulmonary insufficiency. There is no pericardial effusion. Pacemaker is seen in the right heart. IMPRESSION 1. Global hypokinesia with ejection fraction of 30%. 2. Biatrial dilation. 3. Right ventricular dilation with hypokinesia. 4. History of mitral valve repair with mild mitral regurgitation. 5. Biatrial dilation. 6. Severe tricuspid regurgitation with estimated pulmonary artery systolic pressure of 23. 7. Mild pulmonary insufficiency. MTDD
== END 2016-11-28 17:15 | disposition home or self-care (01) | DRG 391 ==
LOC: MED 11:59 → OBSVTOIN 11-22 14:55 → MED 11-22 20:41
PROVIDERS: ADMIT Hospitalist; ATTEND Internal Medicine
DX: R10.13 Epigastric pain (principal); G93.40 Encephalopathy, unspecified; I50.42 Chronic combined systolic (congestive) and diastolic (congestive) heart failure; Z68.41 Body mass index [BMI] 40.0-44.9, adult; R11.2 Nausea with vomiting, unspecified; R09.02 Hypoxemia; I11.0 Hypertensive heart disease with heart failure; E11.9 Type 2 diabetes mellitus without complications; I48.91 Unspecified atrial fibrillation; I25.5 Ischemic cardiomyopathy; I25.10 Atherosclerotic heart disease of native coronary artery without angina pectoris; E66.01 Morbid (severe) obesity due to excess calories; E78.2 Mixed hyperlipidemia; E03.9 Hypothyroidism, unspecified; K21.9 Gastro-esophageal reflux disease without esophagitis; Z95.1 Presence of aortocoronary bypass graft; Z95.810 Presence of automatic (implantable) cardiac defibrillator; Z95.2 Presence of prosthetic heart valve; Z79.01 Long term (current) use of anticoagulants
CPT/HCPCS: 36415; 36600; 80048; 80053; 80074; 81001; 81003; 82140; 82248; 82550; 82803; 82948; 83036; 83605; 83690; 83735; 83880; 84100; 84439; 84443; 84484; 85007; 85025; 85027; 85610; 86140; 86644; 86645; 86663; 86664; 86665; 86666; 86703; 87040; 87497; 87507; 87529; 93306; 96361; 96372; 96374; 96375; 96376; 99218

== ENCOUNTER → 2016-12-13 | Outpatient (CLI) | payer BC ==
[~2016-12-13] MED LIST changes: +ALEN70TA48 PO; +LACT10SO9 PO; -SIMV20TA6 PO; +WARF2TAB58 PO; -WARF5TAB67 PO
[2016-12-13 15:00] LABS: ANION GAP 14 MEQ/L (5-15); BUN/CREATININE RATIO 17 RATIO (6-26); CALCIUM 9.5 MG/DL (8.4-10.2); CHLORIDE 98 MEQ/L (98-107); CO2 - CARBON DIOXIDE 30 MEQ/L (22-30); CREATININE 1.2 MG/DL (0.7-1.2); GLOMERULAR FILTRATION RATE 45; GLUCOSE 181 MG/DL (65-110); PHOSPHORUS 4.6 MG/DL (2.5-4.5); POTASSIUM 4.1 MEQ/L (3.6-5); SODIUM 142 MEQ/L (134-144)
[2016-12-13 15:05] LABS: CREATININE, URINE RANDOM 185.6 MG/DL
== END ==
LOC: LAB 14:19
PROVIDERS: ATTEND Internal Medicine Nephrology
DX: N18.3 Chronic kidney disease, stage 3 (moderate) (principal)
CPT/HCPCS: 36415; 80069; 82570; 83970; 84156

== ENCOUNTER 2016-12-17 13:57 | Emergency (ER) | payer BC ==
[~2016-12-17] VITALS: Ht 167.6 cm; Wt 106.4 kg
--- OUTSIDE RECORDS SUMMARY | 2016-12-17 14:02 | XMS REPORT | Continuity of Care Document ---
Author Author [facility] Organization [facility] Address Unknown Phone Unavailable Allergies Active Description [...] k/cumm 150-450 METABOLIC PANEL, [facility] - 10/16/16 06:05 POTASSIUM 3.6 mmol/L 3.5-5.3 [...] 10/16/16 09:42 ACT PLUS (POC) 166 sec [place] <160 ACT PLUS (POC) - 10/16/16 10:27 ACT PLUS (POC) 263 sec [place] <160 ACT PLUS (POC) - 10/16/16 10:52 ACT PLUS (POC) 272 sec [place] <160 ACT PLUS (POC) - 10/16/16 11:15 ACT PLUS (POC) 403 sec [place] <160 ACT PLUS (POC) - 10/16/16 11:42 ACT PLUS (POC) 347 sec [place] <160 ACT PLUS (POC) - 10/16/16 12:07 ACT PLUS (POC) 395 sec [place] <160 ACT PLUS (POC) - 10/16/16 12:36 ACT PLUS (POC) 401 sec [place] <160 GLUCOSE (POC) - 10/16/16 13:17 GLUCOSE (POC) 193 mg/dL 70-99 ACT PLUS (POC) - 10/16/16 13:19 ACT PLUS (POC) 366 sec [place] <160 GLUCOSE (POC) - 10/16/16 20:31 GLUCOSE [...] Status Pt. Type Provider Facility Loc./Unit Complaint [id number] 10/25/2013 08:28:00 10/25/2013 23 :59:59 CLS Outpatient [id number] 07/19/2013 13:40:00 07/19/2013 23 :59:59 CLS Outpatient
--- OUTSIDE RECORDS SUMMARY | 2016-12-17 14:03 | XMS REPORT | Continuity of Care Document ---
Author Author [facility] Organization [facility] Address Unknown Phone Unavailable Support Name Relationship Address Phone MARY TAYLOR MD Caregiver [address] [place] [phone] Unavailable CAITLYN MCGUIRE MD Caregiver [address] [place] [address] [place] [address] Unavailable KENNETH NEFF DO Caregiver [address] [place] [address] Unavailable RUDY ALEMAN Next Of Kin [address] [place] [address] Insurance Providers Guarantor Marilyn Aleman Address [address] [place] [address] Email DENIED 16 Payer [facility] Policy Number [id number] Subscriber's Name Marilyn Aleman Relationship 18 Self Group Number [id number] Advance Directives Directive Response Recorded Date/Time Ordered Resuscitation Status Full Code 11/21/16 2:56pm Resuscitation Documents on File No 11/21/16 12:22pm DPOA for Healthcare Only No 11/21/16 1:39pm Living Will No 11/21/16 12:22pm Problems Active Problems Medical Problem Onset Date Status Atherosclerotic heart disease of [place] coronary artery without angina pectoris Unknown Chronic Atrial fibrillation Unknown Chronic Atrial fibrillation with rapid ventricular response Unknown Acute CAD (coronary artery disease) Unknown Chronic Cardiac pacemaker Unknown Chronic Cellulitis of leg, left Unknown Acute Chest pain Unknown Acute Chronic combined systolic and diastolic heart failure Unknown Chronic Congestive heart failure (CHF) Unknown Chronic Diabetes type 2, controlled Unknown Acute Drowsiness Unknown Acute Dyslipidemia Unknown Acute Encephalopathy Unknown Epigastric abdominal pain Unknown Acute Essential (primary) hypertension Unknown Chronic GERD (gastroesophageal reflux disease) Unknown Gastroenteritis due to norovirus Unknown Acute Hx of ulcer disease Unknown Chronic Hx pulmonary embolism Unknown Hypertension Unknown Chronic Hypothyroidism Unknown Chronic Hypoxia Unknown Acute Ischemic cardiomyopathy Unknown Chronic long term care phlebotomist (current) use of anticoagulants Unknown Chronic Mixed hyperlipidemia Unknown Chronic Nausea & vomiting Unknown Acute Nonrheumatic mitral valve insufficiency Unknown Chronic OA (osteoarthritis) Unknown Chronic Obesity Unknown Chronic Pain and swelling of left lower leg Unknown Acute Presence of automatic implantable cardioverter-defibrillator Unknown Chronic Presence of prosthetic heart valve Unknown Chronic Respiratory failure with hypoxia Unknown Acute Type 2 diabetes mellitus without complications Unknown Chronic Vomiting Unknown Acute Surgical Problem Onset Date Status H/O mitral valve replacement Unknown Past Problems Medical Problem Onset Date Dyspnea Unknown Gastroenteritis Unknown Hypotension Unknown Mild dehydration Unknown Tachycardia Unknown Tachycardia Unknown Viral gastroenteritis Unknown Medications Current Home Medications Medication Dose Units Route Directions Days Qty Instructions Start Date Alendronate Sodium 70 Mg Tablet 70 Mg Oral Every 7 Days TAKE ON EMPTY STOMACH AND TAKE NOTHING ELSE FOR 30 MINUTES. MUST REMAIN UPRIGHT-SEATED OR STANDING. 11/21/16 Bumetanide (Bumex) 2 Mg Tablet 2 Mg Oral Twice A Day 06/16/12 Cholecalciferol (Vitamin D3) (Vitamin D3) 2,000 Unit Capsule 2,000 Unit Oral Daily 04/23/16 Clonazepam 0.5 Mg Tablet 0.5 Mg Oral Bedtime as needed for Prn Orders 05/12/13 Glimepiride 4 Mg Tablet 4 Mg Oral Daily 09/02/16 Lactulose 20 Gm/30 Ml Solution 20 Gm Oral Three Times A Day 10 Days 11/28/16 Levothyroxine Sodium 150 Mcg Tablet 150 Mcg Oral Before Breakfast 05/11/13 Liraglutide (Victoza 2-Marc) 18 Mg/Syringe Inj 1.2 Mg Sub-Q 1500 09/02/16 Losartan Potassium 25 Mg Tablet 25 Mg Oral Daily 04/24/16 Metoprolol Tartrate 25 Mg Tablet 50 Mg Oral Twice A Day 09/02/16 Oxycodone Hcl/Acetaminophen (Percocet 7.5/325 Mg Tablet) 1 Tab Tablet 1 Tab Oral Every 4-6 Hours as needed for Pain 06/16/12 Pantoprazole Sodium 40 Mg Tablet.dr 40 Mg Oral Before Breakfast 04/23/16 Potassium Chloride 20 Meq Tab.prt.sr 20 Meq Oral Daily 06/16/12 Sertraline Hcl (Zoloft) 50 Mg Tablet 50 Mg Oral Bedtime 04/24/16 Spironolactone 50 Mg Tablet 50 Mg Oral Daily 03/07/10 Warfarin Sodium (Coumadin) 2 Mg Tablet 1 Tab Oral Daily 30 Tablet 11/28/16 Past Home Medications Medication Directions Ordered Status Amiodarone Hcl 200 Mg Tablet, 200 Mg Oral Give With Supper 09/02/16 Discontinued Amiodarone Hcl (Pacerone) 200 Mg Tablet, 400 Mg Oral Daily 01/28/09 Discontinued Aspirin (Aspir 81) 81 Mg Tablet., 81 Mg Oral Daily 05/20/13 Discontinued Aspirin (Enteric Aspirin) 81 Mg Tablet., 81 Mg Oral Daily 07/20/08 Discontinued Atorvastatin [...] 20 Mg Oral Daily 06/16/12 Discontinued Simvastatin 20 Mg Tablet, 20 Mg Oral Give With Supper 04/23/16 Discontinued Simvastatin , 10/09/15 Discontinued Simvastatin (Zocor) 20 Mg Tablet, 20 Mg Oral Daily 03/07/10 Discontinued Triamterene/Hydrochlorothiazid (Maxzide 75/50 Tablet) 1 Tab Tablet, 0.5 Mg Oral Three Times A Day 12/18/09 Discontinued Warfarin Sodium (Coumadin) 5 Mg Tablet, 5 Mg Oral Daily 03/07/10 Discontinued Warfarin Sodium (Coumadin) 5 Mg Tablet, 2.5 Mg Oral Every Friday05/12/13 Discontinued Warfarin Sodium (Coumadin) 7.5 Mg Tablet, 7.5 Mg Oral Q Day Except Mon Discontinued Warfarin Sodium 5 Mg Tablet, Mon,Fri09/26/09 Discontinued Warfarin Sodium 5 Mg Tablet, 5 Mg Oral Daily 10/08/08 Discontinued Social History Social History Problem Response Recorded Date/Time Onset Date Status Reason for Hospitalization Abdominal pain, Elevated LFTs 11/28/2016 3:56pm Not Applicable Not Applicable Chewing Tobacco Status No 05/12/2013 1:02pm Not Applicable Not Applicable Hx Substance Use No 11/20/2016 7:10pm Not Applicable Not Applicable Hx Alcohol Use No 11/20/2016 7:10pm Not Applicable Not Applicable Has the pt used tobacco in the last 12 months No 11/21/2016 12:25pm Not Applicable Not Applicable Query Response Start Date Stop Date Smoking Status Former smoker Hospital Discharge Instructions Instructions: Care Instructions: Reason for Hospitalization: Abdominal pain, Elevated LFTs I was in the hospital because (patient own words): I have a virus. Discharge Diet: ADA Discharge Activity: Activity as tolerated Follow Up Appointments: Please schedule follow-up appointment with Dr. Khan for Saturday 12/02 FOLLOW UP APPOINTMENT WITH DR. NEFF ON 12/02/2016 AT 4:15 PM- OFFICE NUMBER [phone] Pending Lab / Results: No Pending Lab Patient Instructions: You have been requiring a lower dose of Coumadin. Take 2 mg daily until follow-up with Dr. Neff on Friday. Wound/Incision Care: N/A Pain Management/Treatment: Tylenol as needed for pain control Expected Signs/Symptoms: Improvement in symptoms Notify Physician If: Fever, chills, severe abdominal pain, nausea During Business Hours:: Please call the physician's office After Business Hours:: Please call [phone] and have the laundry machine operator page the physician. Condition at time of discharge: Good Plan of Care Discharge Date 11/28/16 5:15pm Disposition 01 DISCHARGED HOME, SELF-CARE Instructions/Education Provided Portal Hypertension (DC) Prescriptions See Medication Section Care Plan and Goals See Discharge Instructions Section Functional Status Query Response Date Recorded Mobility Status Ambulatory November 28, 2016 3:56pm Assistive Devices None November 28, 2016 3:56pm Activity Limitations Weakness November 28, 2016 3:56pm Feeding Ability Independent November 28, 2016 3:56pm Toileting Ability Independent November 28, 2016 3:56pm Grooming Ability Independent November 28, 2016 3:56pm Dressing Ability Independent November 28, 2016 3:56pm Driving Ability Independent November 28, 2016 3:56pm Housework Ability Independent November 28, 2016 3:56pm Meal Preparation Ability Independent November 28, 2016 3:56pm Stair Climbing Ability Independent November 28, 2016 3:56pm Ability to complete ADL's impeded by No change November 28, 2016 3:56pm Cognitive/Perceptual Impairments Impaired vision November 28, 2016 3:56pm Visual Assistive Devices Glasses With patient November 27, 2016 12:48pm Preferred Method of Learning Reading November 27, 2016 12:48pm Allergies, Adverse Reactions, Alerts Allergen Type Severity Reaction Status Last Updated Iodinated Contrast Media - Oral and Allergy Unknown Active 11/21/16 Penicillin Allergy Intermediate HIVES Active 11/20/16 Morphine [...] File Recorded Date/Time Hx Influenza Vaccination Y may 2016 11/21/16 12:25pm Hx Pneumococcal Vaccination No 11/21/16 12:25pm Hx Influenza Vaccination Y may 2016 11/21/16 12:25pm DTaP Vaccine History 201511/20/16 7:10pm Influenza Vaccine Hx 05/201611/22/16 12:00pm Vital Signs Acute Vital Signs Vital Response Date/Time Temperature (Fahrenheit) 96.3 deg F (96.8 - 99.1) 11/28/2016 7:39am Temperature (Calculated Celsius) 35.01609 degrees C (36.0 - 37.3) 11/28/2016 7:39am Pulse Rate (adult) 60 bpm (60 - 100) 11/28/2016 7:39am Respiratory Rate 16 breaths/min (10 - 20) 11/28/2016 7:39am O2 Sat by Pulse Oximetry 94 % (90 - 100) 11/28/2016 7:39am Oxygen Delivery Method Nasal Cannula 11/24/2016 10:46pm Oxygen Delivery Method Room Air 11/28/2016 7:39am Oxygen Flow Rate 1.00 L/min 11/25/2016 12:11am Blood Pressure 122/73 mm Hg 11/28/2016 7:39am Blood Pressure Source Automatic Cuff 11/28/2016 7:39am Height (Feet) 5 feet 11/27/2016 5:11pm Height (Inches) 6.00 inches 11/27/2016 5:11pm Weight (Kilograms) 117.400 kg 11/28/2016 7:49am Body Mass Index (BMI) 40.1 11/21/2016 12:19pm Results Laboratory Results Test Name Result Units Flags Reference Collection Date/Time Result Date/ Time Comments Thyroid Stimulating Hormone (TSH) 4.45 MIU/L 0.47-4.68 [...] (PCR) NEGATIVE NEGATIVE 09/02/2016 5:13pm 09/02 6:47pm Procalcitonin < 0.05 NG/ML 10/14/2016 7:15pm 10/14/2016 7:45pm PCT < /=0.5 ng/mL - sepsis not likely; PCT >0.5 and </=2 ng/mL - sepsis possible; PCT >2 ng/mL - sepsis likely; PCT >/=10 ng/mL - systemic inflammatory response - sepsis or septic shock highly indicated. Digoxin Level 0.5 NG/ML L 0.8-2.0 10/14/2016 3:55pm 10/14/2016 4:31pm D-Dimer < 150 NG/ML 0-230 11/18/2016 6:00pm 11/18/2016 7:18pm <230 NG/ ML D-DU=PRESUMPTIVE NEGATIVE FOR PE OR DVT >230 NG/ML D-DU=ADDITIONAL EVAL FOR PE OR DVT RECOMMENDED Urine Amorphous Urates MODERATE 11/20/2016 7:40pm 11/20/2016 8: 26pm Urine Fine Granular Casts 3-5 /LPF 11/20/2016 7:40pm 11/20/2016 8: 26pm White Blood Count 7.1 T/MM3 4.5-11.0 11/28/2016 5:06am 11/28/2016 5: 30am Red Blood Count 4.33 M/MM3 4.00-5.20 11/28/2016 5:06am 11/28/2016 5: 30am Hemoglobin 12.3 GM/DL 12-16 11/28/2016 5:06am 11/28/2016 5:30am Hematocrit 39.1 % 36-46 11/28/2016 5:06am 11/28/2016 5:30am Mean Corpuscular Volume 90.3 UM3 80-100 11/28/2016 5:06am 11/28/2016 5: 30am Mean Corpuscular Hemoglobin 28.4 UUG 26-34 11/28/2016 5:062016 5:30am Mean Corpuscular Hemoglobin Concent 31.5 GM/DL 31-37 11/28/2016 5:0611/28/2016 5:30am RDW Standard Deviation 60.6 FL H 36.9-50.2 11/28/2016 5:0611/28/2016 5:30am Platelet Count 245 T/MM3 130-400 11/28/2016 5:0611/28/2016 5:30am Mean Platelet Volume 10.8 UM3 9.4-12.4 11/28/2016 5:0611/28/2016 5: 30am Neutrophils (%) (Auto) 57.3 % 33-66 11/27/2016 9:47am 11/27/2016 9: 56am Lymphocytes (%) (Auto) 21.5 % L 23-45 11/27/2016 9:47am 11/27/2016 9: 56am Monocytes (%) (Auto) 15.8 % H 0-9.0 11/27/2016 9:47am 11/27/2016 9:56am Eosinophils (%) (Auto) 4.7 % H 0-4 11/27/2016 9:47am 11/27/2016 9:56am Basophils (%) (Auto) 0.4 % 0-2 11/27/2016 9:47am 11/27/2016 9:56am Immature Granulocyte % (Auto) 0.3 % 0.0-0.5 11/27/2016 9:47am 2016 9:56am Absolute Neutrophils (auto) 4.3 T/MM3 1.8-7.7 11/27/2016 9:47am 2016 9:56am Absolute Lymphocytes (auto) 1.6 T/MM3 1-4.8 11/27/2016 9:47am 2016 9:56am Absolute Monocytes (auto) 1.2 T/MM3 H 0-0.8 11/27/2016 9:47am 2016 9:56am Absolute Eosinophils (auto) 0.4 T/MM3 0-0.5 11/27/2016 9:47am 2016 9:56am Absolute Basophils (auto) 0.0 T/MM3 0-0.2 11/27/2016 9:47am 11/27/2016 9:56am Absolute Immature Granulocyte (auto 0.02 T/MM3 0.00-0.03 11/27/2016 9: 47am 11/27/2016 9:56am Neutrophils % (Manual) 61.0 % 33-66 11/28/2016 5:06am 11/28/2016 6: 32am Band Neutrophils % 1.0 % 0-6 11/28/2016 5:06am 11/28/2016 6:32am Lymphocytes % (Manual) 25.0 % 23-45 11/28/2016 5:06am 11/28/2016 6: 32am Monocytes % (Manual) 9.0 % 0-9.0 11/28/2016 5:06am 11/28/2016 6:32am Eosinophils % (Manual) 3.0 % 0-4 11/28/2016 5:06am 11/28/2016 6:32am Basophils % (Manual) 1.0 % 0-2 11/28/2016 5:06am 11/28/2016 6:32am Band Neutrophils # 0.1 T/MM3 11/28/2016 5:06am 11/28/2016 6:32am Absolute Neutrophils (Manual) 4.3 T/MM3 1.8-7.7 11/28/2016 5:06am 11/28 6:32am Lymphocytes # (Manual) 1.8 T/MM3 1-4.8 11/28/2016 5:06am 11/28/2016 6: 32am Monocytes # (Manual) 0.6 T/MM3 0-0.8 11/28/2016 5:06am 11/28/2016 6: 32am Eosinophils # (Manual) 0.2 T/MM3 0-0.5 11/28/2016 5:06am 11/28/2016 6: 32am Basophils # (Manual) 0.1 T/MM3 0-0.2 11/28/2016 5:06am 11/28/2016 6: 32am Nucleated Red Blood Cells 1 11/25/2016 4:56am 11/25/2016 6:44am Red Cell Morphology Comment ABNORMAL 11/28/2016 5:06am 11/28/2016 6 :32am Anisocytosis 1+ 11/28/2016 5:11/28/2016 6:32am Poikilocytosis 1+ 11/28/2016 5:11/28/2016 6:32am Prothromb Time International Ratio 2.53 H 0.76-1.04 11/28/2016 5:11/28/2016 5:34am THERAPUTIC RANGE=2.00-3.00 FOR ANTI-THROMBOSIS THERAPUTIC RANGE=2.50-3.50 FOR IMPLANTED VALVE Icterus Index < 2 0-7 11/28/2016 5:11/28/2016 5:41am Chemistry Specimen Hemolysis < 15 0-25 11/28/2016 5:11/28/2016 5 :41am 0-25: Specimen Exhibited No Hemolysis. Turbidity < 20 0-20 11/28/2016 5:11/28/2016 5:41am Sodium Level 141 MEQ/L 134-144 11/28/2016 5:11/28/2016 5:41am Potassium Level 4.2 MEQ/L 3.6-5 11/28/2016 5:11/28/2016 5:41am Chloride Level 104 MEQ/L 98-107 11/28/2016 5:11/28/2016 5:41am Carbon Dioxide Level 25 MEQ/L 22-30 11/28/2016 5:11/28/2016 5: 41am Anion Gap 12 MEQ/L 5-15 11/28/2016 5:11/28/2016 5:41am Blood Urea Nitrogen 18.0 MG/DL H 7-17 11/28/2016 5:11/28/2016 5: 41am Creatinine 0.9 MG/DL 0.7-1.2 11/28/2016 5:11/28/2016 5:41am BUN/Creatinine Ratio 20 RATIO 6-26 11/28/2016 5:11/28/2016 5:41am Glomerular Filtration Rate Calc 63 11/28/2016 5:11/28/2016 5: 41am Glucose Level 94 MG/DL 65-110 11/28/2016 5:0611/28/2016 5:41am Calculated Osmolality 273 MOSM/KG 261-280 11/28/2016 5:11/28/2016 5:41am Calcium Level 8.6 MG/DL 8.4-10.2 11/28/2016 5:06am 11/28/2016 5:41am Phosphorus Level 2.4 MG/DL L 2.5-4.5 11/25/2016 4:54am 11/25/2016 8: 14am Total Bilirubin 2.10 MG/DL H 0.20-1.30 11/28/2016 5:0611/28/2016 5: 41am Unconjugated Bilirubin 0.90 MG/DL 0.00-1.10 11/27/2016 9:47am 2016 10:32am Conjugated Bilirubin 0.00 MG/DL 0.00-0.30 11/27/2016 9:47am 11/27/2016 10:32am Alkaline Phosphatase 217 U/L H 38-126 11/28/2016 5:0611/28/2016 5: 41am Total Protein 6.5 G/DL 6.3-8.2 11/28/2016 5:0611/28/2016 5:41am Albumin 3.4 G/DL L 3.5-5.0 11/28/2016 5:0611/28/2016 5:41am Globulin 3.1 G/DL 2.4-3.6 11/28/2016 5:06am 11/28/2016 5:41am Albumin/Globulin Ratio 1.1 RATIO 1.1-2.2 11/28/2016 5:06am 11/28/2016 5 :41am Aspartate Amino Transf (AST/SGOT) 312 U/L H 14-36 11/28/2016 5:06 5:41am Alanine Aminotransferase (ALT/SGPT) 374 U/L H 9-52 11/28/2016 5:06am 5:41am Total Creatine Kinase 57 U/L 30-135 11/20/2016 7:32pm 11/22/2016 8: 49pm Troponin I < 0.012 ng/ml 0-0.12 11/22/2016 4:33am 11/22/2016 5:49am Troponin values with a difference of 55% increase from orginal troponin value represent a true biological DELTA value. (%increase Calc=Orginal Troponin value, divided by subsequent Troponin value, multiplied by 100) C-Reactive Protein 25.7 MG/L H 0-9 11/21/2016 12:54pm 11/21/2016 1:20pm FD-Lrs-J-Type Natriuretic Peptide 1370 PG/ML H 0-175 11/28/2016 5:06am 11/28/2016 5:47am Rule in cut points: <50 years old=450; 50-75 years old=900; >75 years old=1800; When utilizing ProBNP rule-in cut points, adjustment for impaired renal function is typically not required. Lipase 154 U/L D 23-300 11/26/2016 12:45pm 11/26/2016 2:31pm Magnesium Level 2.7 MG/DL H 1.6-2.3 11/25/2016 4:56am 11/25/2016 5:28am Ammonia < 9 UMOL/L L 9-33 11/28/2016 5:06am 11/28/2016 5:37am Plasma Lactate 1.6 MMOL/L 0.6-2.2 11/23/2016 8:34am 11/23/2016 9:02am Free Thyroxine 1.81 NG/DL 0.78-2.19 11/22/2016 9:28pm 11/25/2016 5: 50am Thyroid Stimulating Hormone (TSH) 15.20 MIU/L H 0.47-4.68 11/20/2016 7: 32pm 11/22/2016 9:28pm Hepatitis A IgM Antibody NEGATIVE NEGATIVE 11/23/2016 8:34am 2016 2:52am Hepatitis B Surface Antigen NEGATIVE NEGATIVE 11/23/2016 8:34am 11/26 2:47am Hepatitis B Core IgM Antibody NEGATIVE NEGATIVE 11/23/2016 8:34am 06/2017 2:52am Hepatitis C Antibody NEGATIVE NEGATIVE 11/23/2016 8:34am 11/26/2016 3 :04am Hemoglobin A1c 8.5 % H 6.1-7.9 11/21/2016 12:54pm 11/21/2016 1:34pm < 6.0 NON-DIABETIC RANGE 6.1-7.9 [facility] TARGET RANGE >8.0 ACTION SUGGESTED Arterial Blood pH 7.434 7.350-7.450 11/22/2016 3:52pm 11/22/2016 4: 08pm Arterial Blood Partial Pressure CO2 33 MMHG L 34-45 11/22/2016 3:52pm 4:08pm Arterial Blood pO2 at Patient Temp 85 MMHG 80-100 11/22/2016 3:52pm 02/2017 4:08pm Arterial Blood HCO3 22 MEQ/L 22-26 11/22/2016 3:52pm 11/22/2016 4:08pm Arterial Blood Total CO2 23 MEQ/L 23-27 11/22/2016 3:52pm 11/22/2016 4: 08pm Arterial Blood Base Excess -2.0 MMOL/L -2.0-2.0 11/22/2016 3:52pm 11/22 4:08pm Arterial Blood Oxygen Saturation 97.0 % 95.0-98.0 11/22/2016 3:52pm 02/2017 4:08pm Blood Gas Oxygen Liter Flow 1 11/22/2016 3:52pm 11/22/2016 4:08pm Oxygen Delivery Method (LAB) NASAL CANNULA,LITERS 11/22/2016 3:52pm 11/22/2016 4:08pm SPECIMEN HAD A CLOT IN IT WAS RAN ON ISTAT LB Reason Tests Not Done STOOL, NOT DIARRHEIC 11/22/2016 10:59pm 11/22 11:01pm Tests Not Done GIP 11/22/2016 10:59pm 11/22/2016 11:01pm Specimen Comment ([facility] [place]BMIT NEW SPECIMEN 11/22/2016 10:59pm 02/2017 11:01pm Stool Campylobacter PCR NEGATIVE NEGATIVE 11/23/2016 6:38pm 2016 8:32pm Stool C. difficile Toxin (PCR) NEGATIVE NEGATIVE 11/23/2016 6:38pm 8:32pm Stool Plesiomonas shigelloides PCR NEGATIVE NEGATIVE 11/23/2016 6: 38pm 11/23/2016 8:32pm Stool Salmonella PCR NEGATIVE NEGATIVE 11/23/2016 6:38pm 11/23/2016 8 :32pm Stool Vibrio (PCR) NEGATIVE NEGATIVE 11/23/2016 6:38pm 11/23/2016 8: 32pm Stool Vibrio cholera (PCR) NEGATIVE NEGATIVE 11/23/2016 6:38pm 2016 8:32pm Stool Yersinia enterocolitica (PCR) NEGATIVE NEGATIVE 11/23/2016 6: 38pm 11/23/2016 8:32pm Stool Enteroaggregative E. coli PCR NEGATIVE NEGATIVE 11/23/2016 6: 38pm 11/23/2016 8:32pm Stool Enteropathogenic E. coli (PCR N/A NEGATIVE 11/23/2016 6:38pm 8:32pm Stool Enterotoxigenic Ecoli PCR NEGATIVE NEGATIVE 11/23/2016 6:38pm 11/23/2016 8:32pm Stool E. coli Shiga Toxins NEGATIVE NEGATIVE 11/23/2016 6:38pm 2016 8:32pm Stool E coli O157 PCR N/A NA/NEG 11/23/2016 6:38pm 11/23/2016 8:32pm Stool Shigella/EIEC (PCR) NEGATIVE NEGATIVE 11/23/2016 6:38pm 2016 8:32pm Stool Cryptosporidium PCR NEGATIVE NEGATIVE 11/23/2016 6:38pm 2016 8:32pm Stool Cyclospora species Detection NEGATIVE NEGATIVE 11/23/2016 6: 38pm 11/23/2016 8:32pm Stool Entamoeba (PCR) NEGATIVE NEGATIVE 11/23/2016 6:38pm 11/23/2016 8:32pm Stool Giardia Lamblia PCR NEGATIVE NEGATIVE 11/23/2016 6:38pm 2016 8:32pm Stool Adenovirus (PCR) NEGATIVE NEGATIVE 11/23/2016 6:38pm 2016 8:32pm Stool Astrovirus (PCR) NEGATIVE NEGATIVE 11/23/2016 6:38pm 2016 8:32pm Stool Norovirus GI/GII PCR NEGATIVE NEGATIVE 11/23/2016 6:38pm 2016 8:32pm Stool Rotavirus A PCR NEGATIVE NEGATIVE 11/23/2016 6:38pm 11/23/2016 8:32pm Stool Sapovirus (PCR) NEGATIVE NEGATIVE 11/23/2016 6:38pm 11/23/2016 8:32pm Urine Collection Type CLEANCATCH-MIDSTREAM 11/23/2016 6:07pm 2016 6:20pm Urine Color YELLOW YELLOW 11/23/2016 6:07pm 11/23/2016 6:20pm Urine Turbidity CLEAR CLEAR 11/23/2016 6:07pm 11/23/2016 6:20pm Urine Specific [place] 1.025 1.015-1.025 11/23/2016 6:07pm 2016 6:20pm Urine pH 5.0 5.0-8.0 11/23/2016 6:07pm 11/23/2016 6:20pm Urine Leukocyte Esterase NEGATIVE NEGATIVE 11/23/2016 6:07pm 2016 6:20pm Urine Nitrite NEGATIVE NEGATIVE 11/23/2016 6:07pm 11/23/2016 6:20pm Urine Protein TRACE A NEGATIVE 11/23/2016 6:07pm 11/23/2016 6:20pm Urine Glucose (UA) NEGATIVE NEGATIVE 11/23/2016 6:07pm 11/23/2016 6: 20pm Urine Ketones NEGATIVE NEGATIVE 11/23/2016 6:07pm 11/23/2016 6:20pm Urine Urobilinogen 4.0 EU/DL A NORMAL 11/23/2016 6:07pm 11/23/2016 6: 20pm Urine Bilirubin NEGATIVE NEGATIVE 11/23/2016 6:07pm 11/23/2016 6: 22pm --- 11/23/16 1822 --- UBILI previously reported as: 1+ A Urine Blood NEGATIVE NEGATIVE 11/23/2016 6:07pm 11/23/2016 6:20pm Urine WBC NONE SEEN /HPF 0-5 11/21/2016 1:41pm 11/21/2016 2:18pm Urine RBC 0-1 /HPF 0-3 11/21/2016 1:41pm 11/21/2016 2:18pm Urine Squamous Epithelial Cells 0-5 11/21/2016 1:41pm 11/21/2016 2: 18pm Urine Bacteria 3+ H NEGATIVE 11/21/2016 1:41pm 11/21/2016 2:18pm Urine Mucus PRESENT 11/21/2016 1:41pm 11/21/2016 2:18pm Urine Hyaline Casts 5-10 /LPF 11/21/2016 1:41pm 11/21/2016 2:18pm Urine Culture Indicated CULT NOT INDICATED 11/21/2016 1:41pm 2016 2:18pm Urinalysis Comment MICROSCOPIC NOT IND. 11/23/2016 6:07pm 2016 6:20pm Cytomegalovirus IgG Antibody Negative Negative 11/23/2016 8:34am 06/2017 1:02pm Test Performed by: [address] [address] Cytomegalovirus IgG, Serum performed at [facility], [address] [place] [address] Consumer Services Consultant Xiang Knowles MD Cytomegalovirus IgM Antibody Negative Negative 11/23/2016 8:34am 06/2017 1:02pm Test Performed by: [facility]– [place][Note 2] [address] [place] [address] Cytomegalovirus Ab, IgM performed at [facility], [address] [place] [address] Consumer Services Consultant Xiang Knowles MD Landon-Guerra Virus Capsid Ag IgG Ab Positive A 11/23/2016 8:34am 06/2017 3:01pm Landon-Guerra Capsid Ag IgG Ab Index 4.30 OD Ratio H <0.91 11/23/2016 8: 34am 11/26/2016 3:01pm Landon-Guerra Virus Capsid Ag IgM Ab Negative 11/23/2016 8:34am 06/2017 3:01pm E-B Virus Capsid Ag IgM Ab Index 0.14 OD Ratio <0.91 11/23/2016 8:34am 11/26/2016 3:01pm Landon-Guerra Early Antigen IgG Ab Negative 11/23/2016 8:34am 2016 3:01pm Landon-Guerra Early Ag IgG Ab Interp 0.05 OD Ratio <0.91 11/23/2016 8: 34am 11/26/2016 3:01pm L[place]-Guerra Virus Nuclear Ag Ab Positive A 11/23/2016 8:34am 2016 3:01pm Landon-Guerra Capsid Ag IgG Ab Index 7.84 OD Ratio H <0.91 11/23/2016 8: 34am 11/26/2016 3:01pm Landon-Guerra Virus Interpretation - 11/23/2016 8:34am 11/23/2016 2: 38pm . <0.91=Negative . 0.91 - 1.09=Equivocal . >1.09=Positive Landon-Guerra Virus Serology performed at [facility], [address] [place] [address] Consumer Services Consultant Ana Staples DO Glucometer 156 mg/dL H 65-110 11/28/2016 3:00pm 11/28/2016 3:39pm Microbiology Results Procedure Source Organism/Result Collection Date/Time Result Date/Time Result Status Blood Culture Peripheral/Iv Start NO GROWTH AFTER 5 DAYS 11/23/2016 8:38am 11/28/2016 8:49am Final Name: MARILYN ALEMAN Unit #: [id number] : 1950 Sex: F DISCHARGE SUMMARY Admit Date: 11/22/16 Report #: [id number] [facility] General Date Date DATE: 11/28/16 TIME: 15:13 Attending Physician Caitlyn Mcguire MD Admitting Physician Caitlyn Mcguire MD Consulting Physician Admitting Diagnosis Nausea and vomiting Discharge Diagnosis Elevated liver enzymes, epigastric/abd pain,nausea , vomiting, encephalopathy Laboratory Laboratory Tests Test 11/27/16 04:46 11/27/16 05:57 11/27/16 09:47 11/27/16 10:03 Prothromb Time International Ratio 2.71 (0.76-1.04) Glucometer 92mg/dL (65-110) 132mg/dL (65-110) White Blood Count 7.5T/MM3 (4.5-11.0) Red Blood Count 4.61M/MM3 (4.00-5.20) Hemoglobin 13.1GM/DL (12-16) Hematocrit 41.3% (36-46) Mean Corpuscular Volume 89.6UM3 (80-100) Mean Corpuscular Hemoglobin 28.4UUG (26-34) Mean Corpuscular Hemoglobin Concent 31.7GM/DL (31-37) RDW Standard Deviation 60.5FL (36.9-50.2) Platelet Count 269T/MM3 (130-400) Mean Platelet Volume 10.6UM3 (9.4-12.4) Immature Granulocyte % (Auto) 0.3% (0.0-0.5) Neutrophils (%) (Auto) 57.3% (33-66) Lymphocytes (%) (Auto) 21.5% (23-45) Monocytes (%) (Auto) 15.8% (0-9.0) Eosinophils (%) (Auto) 4.7% (0-4) Basophils (%) (Auto) 0.4% (0-2) Absolute Immature Granulocyte (auto 0.02T/MM3 (0.00-0.03) Absolute Neutrophils (auto) 4.3T/MM3 (1.8-7.7) Absolute Lymphocytes (auto) 1.6T/MM3 (1-4.8) Absolute Monocytes (auto) 1.2T/MM3 (0-0.8) Absolute Eosinophils (auto) 0.4T/MM3 (0-0.5) Absolute Basophils (auto) 0.0T/MM3 (0-0.2) Turbidity < 20 (0-20) Sodium Level 141MEQ/L (134-144) Potassium Level 4.1MEQ/L (3.6-5) Chloride Level 105MEQ/L (98-107) Carbon Dioxide Level 23MEQ/L (22-30) Anion Gap 13MEQ/L (5-15) Blood Urea Nitrogen 20.0MG/DL (7-17) Creatinine 0.9MG/DL (0.7-1.2) Glomerular Filtration Rate Calc 63 BUN/Creatinine Ratio 22RATIO (6-26) Glucose Level 127MG/DL (65-110) Calculated Osmolality 276MOSM/KG (261-280) Calcium Level 8.4MG/DL (8.4-10.2) Total Bilirubin 2.50MG/DL (0.20-1.30) Conjugated Bilirubin 0.00MG/DL (0.00-0.30) Unconjugated Bilirubin 0.90MG/DL (0.00-1.10) Icterus Index < 2 (0-7) Aspartate Amino Transf (AST/SGOT) 518U/L (14-36) Alanine Aminotransferase (ALT/SGPT) 484U/L (9-52) Alkaline Phosphatase 221U/L (38-126) Ammonia 59UMOL/L (9-33) Total Protein 6.8G/DL (6.3-8.2) Albumin 3.6G/DL (3.5-5.0) Globulin 3.2G/DL (2.4-3.6) Albumin/Globulin Ratio 1.1RATIO (1.1-2.2) Chemistry Specimen Hemolysis < 15 (0-25) Test 4/12/17 14:19 11/27/16 20:16 11/28/16 05:06 11/28/16 05:07 Glucometer 220mg/dL (65-110) 120mg/dL (65-110) White Blood Count 7.1T/MM3 (4.5-11.0) Red Blood Count 4.33M/MM3 (4.00-5.20) Hemoglobin 12.3GM/DL (12-16) Hematocrit 39.1% (36-46) Mean Corpuscular Volume 90.3UM3 (80-100) Mean Corpuscular Hemoglobin 28.4UUG (26-34) Mean Corpuscular Hemoglobin Concent 31.5GM/DL (31-37) RDW Standard Deviation 60.6FL (36.9-50.2) Platelet Count 245T/MM3 (130-400) Mean Platelet Volume 10.8UM3 (9.4-12.4) Neutrophils % (Manual) 61.0% (33-66) Band Neutrophils % 1.0% (0-6) Lymphocytes % (Manual) 25.0% (23-45) Monocytes % (Manual) 9.0% (0-9.0) Eosinophils % (Manual) 3.0% (0-4) Basophils % (Manual) 1.0% (0-2) Absolute Neutrophils (Manual) 4.3T/MM3 (1.8-7.7) Band Neutrophils # 0.1T/MM3 Lymphocytes # (Manual) 1.8T/MM3 (1-4.8) Monocytes # (Manual) 0.6T/MM3 (0-0.8) Eosinophils # (Manual) 0.2T/MM3 (0-0.5) Basophils # (Manual) 0.1T/MM3 (0-0.2) Poikilocytosis 1+ Anisocytosis 1+ Red Cell Morphology Comment Abnormal Turbidity < 20 (0-20) Sodium Level 141MEQ/L (134-144) Potassium Level 4.2MEQ/L (3.6-5) Chloride Level 104MEQ/L (98-107) Carbon Dioxide Level 25MEQ/L (22-30) Anion Gap 12MEQ/L (5-15) Blood Urea Nitrogen 18.0MG/DL (7-17) Creatinine 0.9MG/DL (0.7-1.2) Glomerular Filtration Rate Calc 63 BUN/Creatinine Ratio 20RATIO (6-26) Glucose Level 94MG/DL (65-110) Calculated Osmolality 273MOSM/KG (261-280) Calcium Level 8.6MG/DL (8.4-10.2) Total Bilirubin 2.10MG/DL (0.20-1.30) Icterus Index < 2 (0-7) Aspartate Amino Transf (AST/SGOT) 312U/L (14-36) Alanine Aminotransferase (ALT/SGPT) 374U/L (9-52) Alkaline Phosphatase 217U/L (38-126) Ammonia < 9UMOL/L (9-33) WG-Lct-B-Type Natriuretic Peptide 1370PG/ML (0-175) Total Protein 6.5G/DL (6.3-8.2) Albumin 3.4G/DL (3.5-5.0) Globulin 3.1G/DL (2.4-3.6) Albumin/Globulin Ratio 1.1RATIO (1.1-2.2) Chemistry Specimen Hemolysis < 15 (0-25) Prothromb Time International Ratio 2.53 (0.76-1.04) Test 11/28/16 06:18 11/28/16 10:24 Glucometer 90mg/dL (65-110) 160mg/dL (65-110) History of Present Illness Marilyn is a 66-year-old female who currently sees Dr. Kenneth Cancino for her primary care. Patient has not been feeling well since Friday11/18/16 in which she woke up having diarrhea, nausea and vomiting. He presented to the emergency room on 11/18 for acute evaluation. At that time she was having some palpitations and was concerned she was in atrial fibrillation. She had a complete evaluation and was discharged home to follow-up with Dr. Ro at his office. On Friday, 11/[address] Ro at his office, however, was not found to be in atrial fibrillation. She was discharged at that time. She then presented to the emergency room again last evening 11/20/16 with continued abdominal discomfort and nausea. Laboratory studies and CT scan were obtained. WBC count was found to be normal at 9.2, hemoglobin 14.6, hematocrit 46.4, platelet count 279. Sodium is normal at 142, potassium 3.6, chloride 96, BUN 17, creatinine 1.0, glucose 174. Lipase was normal at 147. A urinalysis was obtained showing a trace protein, 1+ blood, 3-5 WBCs, otherwise unremarkable. Given her continued pain. A CT scan of the abdomen and pelvis was obtained showing no acute process. She was given IV fluids for hydration, Zofran for nausea, GI cocktail for epigastric pain and Percocet for pain control. She was then discharged home and instructed to follow with primary care today. She did see Dr. Neff the today with continued symptoms. Due to the ongoing nausea and vomiting. The hospitalist services were contacted and accepted patient directly for an outpatient admission for further evaluation and treatment. Marilyn is seen today on initially examination she is alert and orientated. She was found to be borderline hypoxic on arrival with room air saturations 88-90% and was placed on 1 liter of oxygen. She continues to complain of nausea and epigastric discomfort. Reports she is unable to taken any food or liquids due to the nausea. She does not appear to be in any acute distress. Her abdomen is soft, tender at the epigastric area. Reports diarrhea has subsided. Admission vital signs reviewed. Temperature 97.2, pulse 99, respiratory 24, blood pressure 112/67, room air saturations 88%. Did discuss advanced directives and she does wish to be a full code. Hospital Course 11/21/16 Admit patient to outpatient observation under care of Dr. Taylor for nausea, vomiting and epigastric pain. Will obtain the following laboratory studies on admission, CBC, CMP, magnesium, hemoglobin A1c, lipase, CRP Will obtain a urinalysis on admission Will also obtain GI panel. If patient has any loose stools. Check INR given chronic anticoagulation. Will consult pharmacy for Coumadin dosing management Place patient on cardiac telemetry to monitor for dysrhythmias. Given significant cardiac history. KUB with upright as well as two-view chest x-ray. Given mild hypoxia on admission. Will continue with oxygen to maintain adequate saturations. Zofran and Phenergan as needed for nausea. Given significant epigastric tenderness. Will place patient on scheduled Protonix 40 milligrams IV twice a day She may have clear liquid only if her nausea is controlled Will monitor Accuchecks with meals and at bedtime SCDs to bilateral lower ext for DVT prophylaxis Recheck CBC and BMP tomorrow morning to follow blood counts, renal function and electrolytes Once home medications are reconciled will order appropriate medications Will discuss further plan of care with attending, Dr Taylor At time of discharge medical care is to return to PCP Dr Neff 11/22/16 Obtain an ABG and ammonia level to rule out further etiology for significant drowsiness Will discontinue the Dilaudid and Phenergan for possible contribution to drowsiness. In light of continued Epigastric pain and nausea will continue Protonix 40mg IV twice daily, Zofaran as needed and will also add Reglan 5mg IV every 6 hours scheduled. If no improvement, we will consider consulting general surgery. She is still on 1L nasal cannula to maintain her oxygen saturations. Suspicion that drowsiness could be related to IV medications. We will try to wean off of oxygen as she is able. Continue Coumadin for her cardiac co-morbidities, her INR is within range at 2.82, dosing management by pharmacy. Continue to monitor blood sugars, fasting BGM 141. Continue with sliding scale insulin. Continue to monitor routine labs. Creatinine did slightly increase to 1.3 today. This could be secondary to administration of Toradol. Will recheck CBC and BMP tomorrow morning to follow blood counts, renal function and electrolytes Continue SCDs for additional DVT prophylaxis. 11/23/2016 Impression/plan Elevated transaminases and bilirubin, new since admission. Etiology unknown. - Check gallbladder liver sonogram, hepatitis panel, CMV, EBV, HIV, GI panel Elevated ammonia with mild hepatic encephalopathy -start lactulose enema. Recent nausea, vomiting, diarrhea -check GI panel Hold Protonix as it can sometimes cause elevated liver enzymes Possible diabetic gastroparesis-continue Reglan 10 mg IV scheduled 4 times a day Diabetes-continue to monitor Ohus-Qahup-rto-dose sliding scale insulin Leukocytosis -without fever-check blood cultures, urinalysis, chest x-ray, GI panel, lactate Diaphoresis without signs of infection Consider concussion as cause of nausea and vomiting since she hit her head 2 weeks ago Prosthetic mitral valve on chronic anticoagulation Elevated INR in the patient on Coumadin-supratherapeutic INR likely related to acute liver enzyme elevation-discussed with pharmacy and we'll hold Coumadin and continue daily INR Coronary artery disease Ischemic cardiomyopathy paroxysmal atrial fibrillation Greater than 45 minutes of time was spent seeing and evaluating the patient today. 11/24/2016 Impression/plan Acutely Elevated transaminases and bilirubin-improved, etiology still unknown. Liver sonogram showed fatty liver and enlargement of the liver, but no other abnormalities. hepatitis panel, CMV, EBV, are all pending. GI panel is negative. Elevated ammonia with mild hepatic encephalopathy -improved post lactulose enemas. Monitor at this time. No further lactulose for now as it may be contributing to abdominal discomfort Abdominal pain -CT abdomen prior to admission showed no significant abnormalities other than an enlarged right inguinal node. Check KUB today. Hypoxia -check chest x-ray today, chest x-ray yesterday showed cardiomegaly and official report is pending Recent nausea, vomiting-improving Possible diabetic gastroparesis-continue Reglan 10 mg IV scheduled 4 times a day Diabetes-continue to monitor Ihgj-Yldvh-ams-dose sliding scale insulin Leukocytosis -without fever-improved today. Blood cultures negative to date. Urinalysis negative. GI panel negative. The patient is not on antibiotics. Diaphoresis without signs of infection-improved Consider concussion as cause of nausea and vomiting since she hit her head 2 weeks ago Prosthetic mitral valve on chronic anticoagulation Elevated INR in the patient on Coumadin-supratherapeutic INR yesterday, likely related to acute liver enzyme elevation-discussed with pharmacy yesterday and Coumadin held. INR has improved today. Coronary artery disease Ischemic cardiomyopathy paroxysmal atrial fibrillation GERD with history of ulcer-restart Protonix, the patient states she had been taking this chronically. It is doubtful that it contributed to elevated liver enzymes. Greater than 45 minutes of time was spent seeing and evaluating the patient today. 11/25/2016 Impression/plan Acutely Elevated transaminases and bilirubin-improved, etiology still unknown. Liver sonogram showed fatty liver and enlargement of the liver, but no other abnormalities. hepatitis panel, EBV, are all pending. GI panel is negative. CMV is negative. Liver enzymes are trending down for the past 2 days. Elevated ammonia with mild hepatic encephalopathy -improved post lactulose enemas. Monitor at this time. No further lactulose for now as it may be contributing to abdominal discomfort. Clinically encephalopathy is markedly improved. Abdominal pain -CT abdomen yesterday showed questionable descending diverticulitis. On exam today the patient has no discomfort other than mildly in the epigastrium. No fever. No elevated white count. We'll monitor at this time off of antibiotics. Hypoxia -mild pleural effusion seen on CT abdomen and pelvis. She is drinking better today. We'll DC IV fluids. Recent nausea, vomiting-improving. Appetite improved today. Possible diabetic gastroparesis-continue Reglan 10 mg IV scheduled 4 times a day Diabetes-continue to monitor Vmks-Jqwlz-smz-dose sliding scale insulin Leukocytosis -without fever-resolved. Blood cultures negative to date. Urinalysis negative. GI panel negative. The patient is not on antibiotics. Diaphoresis without signs of infection-improved Consider concussion as cause of nausea and vomiting since she hit her head 2 weeks ago Prosthetic mitral valve on chronic anticoagulation. Coumadin monitored by pharmacy. Coronary artery disease-asymptomatic Ischemic cardiomyopathy -stable paroxysmal atrial fibrillation-sinus rhythm GERD with history of ulcer-restart Protonix, the patient states she had been taking this chronically. It is doubtful that it contributed to elevated liver enzymes. Overall, the patient appears to be doing a little better every day. We are advancing diet today. DC IV fluids this evening since she is taking in oral fluids better. May need to resume diuretics tomorrow. Greater than 35 minutes of time spent seeing and evaluating the patient and determining care plan today. Discussed with case management and the patient's nurse. 11/26/2016 Impression/plan Acutely Elevated transaminases and bilirubin-improved, etiology still unknown. Liver sonogram showed fatty liver and enlargement of the liver, but no other abnormalities. Hepatitis a, B and C testing are negative. EBV shows past infection but not current infection. CMV is negative. GI panel is negative. Liver enzymes are up again today. Elevated ammonia with mild hepatic encephalopathy -will try oral lactulose today 1 dose. Abdominal pain -CT abdomen yesterday showed questionable descending diverticulitis, but abdominal pain is epigastric and there is no fever or elevated white count. We'll continue to monitor. Hypoxia -mild pleural effusion seen on CT abdomen and pelvis. Oral intake is improving. IV fluids were discontinued yesterday. Recent nausea, vomiting-improving. Appetite improving Possible diabetic gastroparesis-continue Reglan 10 mg IV scheduled 4 times a day Diabetes-continue to monitor Gzrh-Ecsqh-xir-dose sliding scale insulin Leukocytosis -without fever-resolved. Blood cultures negative to date. Urinalysis negative. GI panel negative. The patient is not on antibiotics. Diaphoresis without signs of infection-improved Consider concussion as cause of nausea and vomiting since she hit her head 2 weeks ago Prosthetic mitral valve on chronic anticoagulation. Coumadin monitored by pharmacy. INR is therapeutic Coronary artery disease-asymptomatic Ischemic cardiomyopathy -stable paroxysmal atrial fibrillation-sinus rhythm GERD with history of ulcer-restart Protonix, the patient states she had been taking this chronically. It is doubtful that it contributed to elevated liver enzymes. Continue to advance diet as tolerated. Repeat lab work tomorrow. Scopolamine patch was discontinued in case this is contributing somewhat to drowsiness. Over 35 minutes of time was spent seeing and evaluating the patient in determining care plan today. 11/28/16 DISCHARGE Patient seen and evaluated today. She states her pain has improved, in fact is resolved at this point. She has no nausea or vomiting. Tolerated meals. She has homecare set up with her and also with her sister who is in town for the next 2-3 weeks. Liver enzymes are trending downward, bilirubin also trending downward. CT abdomen and pelvis and ultrasound Doppler of liver obtained. Significant variance is hepatic vein which has reversing flow with what appears to be dysfunction of right-sided heart. Cardiac ultrasound is pending at this time, not having been read yet today. Patient is very eager to leave and would like to follow up on her own in regards to outstanding cardiac ultrasound. She normally sees Dr. Neff and I have encouraged her to set up an appointment for Friday to see Dr. Neff make sure that both her symptoms and her lab results are continuing to improve. She is sent with an order for CBC CMP, NH3 to be drawn Friday before she sees her ph ysician. Coumadin dose is been decreased due to liver dysfunction, we will also check an INR. Sd Geller MD Problems: (1) Epigastric abdominal pain Status: Acute (2) Nausea & vomiting Status: Acute (3) Hypoxia Status: Acute (4) Chronic combined systolic and diastolic heart failure Status: Chronic (5) Presence of prosthetic heart valve Status: Chronic Assessment & Plan: Mitral valve (6) Atherosclerotic heart disease of mohe[place] coronary artery without angina pectoris Status: Chronic (7) Type 2 diabetes mellitus without complications Status: Chronic (8) Nonrheumatic mitral valve insufficiency Status: Chronic (9) Essential (primary) hypertension Status: Chronic (10) Ischemic cardiomyopathy Status: Chronic (11) Atrial fibrillation Status: Chronic (12) Mixed hyperlipidemia Status: Chronic (13) Cardiac pacemaker Status: Chronic (14) long term care phlebotomist (current) use of anticoagulants Status: Chronic (15) GERD (gastroesophageal reflux disease) (16) Hx of ulcer disease Status: Chronic (17) OA (osteoarthritis) Status: Chronic (18) Obesity Status: Chronic (19) Encephalopathy DVT Prophylaxis: SCD'S Code Status Full Code Home Meds Reported Medications Alendronate Sodium (Alendronate Sodium) 70 Mg Tablet, 70 MG PO Q7D, TAB TAKE ON EMPTY STOMACH AND TAKE NOTHING ELSE FOR 30 MINUTES. MUST REMAIN UPRIGHT-SEATED OR STANDING. 11/21/16 Liraglutide (Victoza 2-Marc) 18 Mg/Syringe Inj, 1.2 MG SQ 1500 09/02/16 Metoprolol Tartrate (Metoprolol Tartrate) 25 Mg Tablet, 50 MG PO BID 09/02/16 Glimepiride (Glimepiride) 4 Mg Tablet, 4 MG PO DAILY 09/02/16 Sertraline (Zoloft) 50 Mg Tablet, 50 MG PO HS 04/24/16 Losartan Potassium (Losartan Potassium) 25 Mg Tablet, 25 MG PO DAILY 04/24/16 Cholecalciferol (Vitamin D3) (Vitamin D3) 2,000 Unit Capsule, 2000 UNIT PO DAILY 04/23/16 Pantoprazole Sodium (Pantoprazole Sodium) 40 Mg Tablet.dr, 40 MG PO ACB 04/23/16 Simvastatin (Simvastatin) 20 Mg Tablet, 20 MG PO WS 04/23/16 Clonazepam (Clonazepam) 0.5 Mg Tablet, 0.5 MG PO HS Y for PRN ORDERS 05/12/13 Levothyroxine Sodium (Levothyroxine Sodium) 150 Mcg Tablet, 150 MCG PO ACB 05/11/13 Oxycodone Hcl/Acetaminophen (Percocet 7.5/325 Mg Tablet) 1 Tab Tablet, 1 TAB PO Q4-6H Y for PAIN 06/16/12 Potassium Chloride (Potassium Chloride) 20 Meq Tab.prt.sr, 20 MEQ PO DAILY 06/16/12 Bumetanide (Bumex) 2 Mg Tablet, 2 MG PO BID 06/16/12 Spironolactone (Spironolactone) 50 Mg Tablet, 50 MG PO DAILY 03/07/10 Warfarin Sodium (Coumadin) 5 Mg Tablet, 5 MG PO DAILY 03/07/10 Face to Face Encounter I met with patient on the day of dismissal and discussed follow up appointments , medications, and safety plan. Discharge Disposition To home with . Copies To 1: KENNETH NEFF CHARLES E MD Nov 28, 2016 15:16 Procedures Procedure Status Date Provider(s) Routine venipuncture [...] Completed 09/02/16 Emergency dept visit Completed 09/02/16 [id number]"INJECTION, FUROSEMIDE, UP TO 20 MG" Completed 09/02/16 [id number]"INFUSION, NORMAL SALINE SOLUTION , 1000 CC" Completed [...] Completed 10/14/16 Emergency dept visit Completed 10/14/16 [id number]"INJECTION, DIGOXIN, UP TO 0.5 MG" Completed 10/14/16 [id number]"INFUSION, NORMAL SALINE SOLUTION , 1000 CC" Completed 10/14/16 [id number]"INFUSION, NORMAL SALINE SOLUTION , 1000 CC" Completed [...] Completed 11/18/16 Emergency dept visit Completed 11/18/16 [id number]"INJECTION, ONDANSETRON HYDROCHLORIDE, PER 1 MG" Completed 11/18/16 [id number]"INFUSION, NORMAL SALINE SOLUTION , 1000 CC" Completed 11/18/16 Routine venipuncture Completed 11/20/16 X-ray exam of abdomen Completed 11/20/16 Ct abd & pelvis w/o contrast Completed 11/20/16 Comprehen metabolic panel Completed 11/20/16 Urinalysis auto w/scope Completed 11/20/16 Assay of lipase Completed 11/20/16 Complete cbc w/auto diff wbc Completed 11/20/16 Blood culture for bacteria Completed 11/20/16 Blood culture for bacteria Completed 11/20/16 Hydrate iv infusion add-on Completed 11/20/16 Hydrate iv infusion add-on Completed 11/20/16 Ther/proph/diag inj iv push Completed 11/20/16 Emergency dept visit Completed 11/20/16 [id number]"INJECTION, ONDANSETRON HYDROCHLORIDE, PER 1 MG" Completed 11/20/16 [id number]"INFUSION, NORMAL SALINE SOLUTION , 1000 CC" Completed 11/20/16 Compound Drug, Not Otherwise Classified Completed 11/20/16 Encounters Encounter Location Arrival/Admit Date Discharge/Depart Date Attending Provider Discharged Inpatient [facility] 11/22/16 2:55pm 11/28/16 5:15pm CAITLYN MCGUIRE MD Departed Emergency Room [facility] 11/20/16 6:55pm 11/20/16 10: 50pm SD GELLER MD Departed Emergency Room [facility] 11/18/16 5:40pm 11/18/16 7: 55pm NACOH ROBBINS DO Registered Clinic [facility] 11/11/16 1:07pm KENNETH NEFF DO Discharged Inpatient (obs) [facility] 10/14/16 7:50pm 10/15/16 4: 20pm EDMUND RO MD Registered [facility] 10/08/16 12:23pm EDMUND OR MD Discharged Inpatient (obs) [facility] 09/02/16 4:10pm 09/03/16 1: 15pm EDMUND RO MD
--- OUTSIDE RECORDS SUMMARY | 2016-12-17 14:04 | XMS REPORT ---
Author Author Say[facility], [facility] - Organization Unknown Address Unknown [...] the responsibility of the patient or patient account development representative to confirm the list of medications [...] Clean Catch Received : 05/16/13 11:10 Order#: [id number] Urine Culture FINAL 05/17/13 07:11 F Mixed dominic indicative of skin contamination F: Performed at: [facility], [address] [facility], [place] FOR RESULTS: * - NEW RESULT - RESULT WAS MODIFIED AFTER FINAL STATUS SET
[2016-12-17 14:10] VITALS: Ht 167.6 cm; Wt 106.4 kg
--- NOTE | 2016-12-17 14:20 | ERPDOC ---
Departure Disposition Decision Date: December 17, 2016 Disposition Decision Time: 17:12 (DECEMBER,[facility]) Disposition: 01 DISCHARGED HOME, SELF-CARE Impression Impression (CLAUDIA ORNELAS APRN) Impression: Primary Impression: Nausea & vomiting Vomiting type: unspecified Vomiting Intractability: non-intractable Qualified Codes: R11.2 - Nausea with vomiting, unspecified Severity: Moderate (CLAUDIA ORNELAS APRN) Severity: Moderate (DECEMBER,[facility]) Condition: Improved Seen By: Physician and Mid-level (CLAUDIA ORNELAS APRN) Seen By: Phys[facility] and Mid-level [facility] Referrals: KENNETH HELMS DO (Family) 1 Day Patient Instructions: Acute Nausea and Vomiting (ED) Problems/Meds/Labs Reviewed?: Yes Medications reviewed and manag: Yes (DECEMBER,[facility]) Additional Instructions: We did not find a new or concerning cause for your symptoms today. Take your home meds as prescribed and follow up with your doctor tomorrow. Follow up care ordered?: Yes Mental Status: Alert, Oriented (DECEMBER,[facility]) HPI - Abdominal Pain General Chief Complaint: Nausea,Vomiting,Diarrhea Stated Complaint: VOMITING/WEAKNESS Time Seen by Provider: 14:20 Source: patient (CLAUDIA ORNELAS APRN) Time Seen by Provider: 14:15 (DECEMBER,[facility]) HPI - Abdominal Pain Initial Comments 66 YO presents to ED with report of nausea and vomiting that started at 0130 today. Has had several episodes of vomiting since that time. Patient reports epigastric abdominal pain. Patient report early this morning around 0630 she had "a little chest pain" which has resolved. States she has had a cough for one month which is sometimes productive with white sputum. Patient report chronic abdominal pain for over 1 month. Has appointment next month with radiology nurse in [place]. Pain Scale: Now: 9/10 Quality: burning Associated Symptoms: chest pain, nausea/vomiting, DENIES: back pain, diaphoresis, fatigue, fever/chills, headache, heartburn, other, rash, shortness of breath, swelling/mass in abdomen, syncope, weakness (CLAUDIA ORNELAS APRN) Allergies: Coded Allergies: Penicillins (Verified Allergy, Intermediate, HIVES, 11/20/16) REACTION PER H&P DATED 05-05-13 amoxicillin (Verified Allergy, Intermediate, hives, 11/20/16) codeine (Verified Allergy, Intermediate, HIVES, 11/20/16) AND NAUEA metformin (Verified Allergy, Intermediate, NAUSEA & VOMITING, 11/20/16) Iodinated Contrast Media - Oral and (Verified Allergy, Unknown, 11/21/16) meperidine (Verified Allergy, Unknown, HIVES, 11/20/16) PER H&P DATED 05-05-13 morphine (Verified Allergy, Unknown, HEADACHES, 11/20/16) PER H&P DATED 05-05-13 erythromycin base (Verified Adverse Reaction, Intermediate, ABDOMINAL CRAMPS, 11/20/16) hydrocodone (Verified Adverse Reaction, Intermediate, ABDOMINAL CRAMPS, 11/20/16) Uncoded Allergies: ANESTHETICS (Adverse Reaction, Mild, NAUSEA, 04/24/16) Past History Patient Surgical History Pacemaker/defibrillator Cardiac Ablasion- 10/2016 (Dr Bishop) CABG 1 vessel -1991 CABG 3 vessels -2011 Hysterectomy Appendectomy. Cholecystectomy-2007. LAXMI EGD-2008 Right knee arthroscopic 2002 Right meniscal tear repair 2003 (CLAUDIA ORNELAS APRN) Past Medical History Metabolic: diabetes, hypercholesterolemia, hypertension, hypothyroidism Cardiac: A-fib, CAD, CHF, echocardiogram Respiratory: DENIES: COPD, asthma GI: GERD, other (portal hypertension with hepatic steatosis) Female: DENIES: renal insufficiency Neurological: DENIES: seizures Musculoskeletal: DENIES: rheumatoid arthritis Integumentary: rashes Hematologic: DVT Psychological: DENIES: depression (CLAUDIA ORNELAS APRN) Surgical History General: gallbladder Cardiac: cardiac bypass, cardiac cath, cardiac stent, implantable defib, radio ablation, valve replacement Reproductive/: hysterectomy Joint: knee (CLAUDIA ORNELAS APRN) Family History Family PMH: FOUND: CAD, cancer, hypertension (CLAUDIA ORNELAS APRN) Vaccines Hx Influenza Vaccination: Yes (may 2016) Hx Pneumococcal Vaccination: No (CLAUDIA ORNELAS APRN) Social History Does patient use chewing tobac: No Second Hand Exposure: No Substance Use Type: does not use Alcohol Intake: none Marital Status: Sexuality: male partner Housing: house Household Members: spouse Service: No Current Occupational Status: unemployed Occupational Hazard: No Advance Directives: Yes Full Code (CLAUDIA ORNELAS APRN) Review of Systems Constitutional Constitutional: DENIES: chills, dizziness, fever, weakness (ORNELAS,CLAUDIA A ROOM DESIGNER) Eyes General: DENIES: erythema, exudate Lids/Accessories: DENIES: erythema, swelling (ORNELAS,CLAUDIA A ROOM DESIGNER) ENMT Ears: DENIES: pain Sinuses: DENIES: congestion, rhinorrhea Mouth/Throat: DENIES: sore throat (ORNELAS,CLAUDIA A ROOM DESIGNER) Cardiovascular Cardiac: chest pain, see HPI, DENIES: murmur Rhythm/Rate: DENIES: palpitations (ORNELAS,CLAUDIA A ROOM DESIGNER) Pulmonary Respiratory: cough (ORNELAS,CLAUDIA A ROOM DESIGNER) GI Upper Abdomen: nausea, pain, see HPI, vomiting Lower Abdomen: DENIES: diarrhea, pain (ORNELAS,CLAUDIA A ROOM DESIGNER) General: DENIES: dysuria, pain (ORNELAS,CLAUDIA A ROOM DESIGNER) Musculoskeletal General: DENIES: joint pain, pain, tenderness (ORNELAS,CLAUDIA A ROOM DESIGNER) Integumentary Skin: DENIES: color change, itching, rash (ORNELAS,CLAUDIA A ROOM DESIGNER) Neurological General: DENIES: ataxia, change in strength, numbness, paralysis/paresis, weakness (ORNELAS,CLAUDIA A ROOM DESIGNER) Psychiatric Psychiatric: DENIES: anxiety, depression, nervousness (ORNELAS,CLAUDIA A ROOM DESIGNER) Physical Exam General General Nourishment: well nourished, well developed, adult, obese General Body Habitus: disheveled (ORNELAS,CLAUDIA A ROOM DESIGNER) Vitals and Pain (DECEMBER,NACHO M DO) Vitals and Pain Weight: Kilograms: Height (feet): 5 Height (inches): 6.00 Triage Pain Scale: (ORNELAS,CLAUDIA A ROOM DESIGNER) Eyes (brief) Eyes Brief: found: EOMI, PERRL (ORNELAS,CLAUDIA A ROOM DESIGNER) ENMT (brief) ENMT Brief: NOT FOUND: mucosa moist (dry), nasal exudate, nasal swelling ( ORNELAS,CLAUDIA A ROOM DESIGNER) Neck (brief) Neck: FOUND: trachea midline, NOT FOUND: adenopathy, tenderness, thyromegaly ( ORNELAS,CLAUDIA A ROOM DESIGNER) Respiratory (brief) Respiratory: FOUND: clear all [place], equal bilaterally, symmetrical (ORNELAS, CLAUDIA A ROOM DESIGNER) Cardiovascular Auscultation: FOUND: S1, S2, rate (94), regular (CLAUDIA ORNELAS ROOM DESIGNER) Abdomen Palpation: FOUND: involuntary guarding, soft, tender (epigastric), voluntary guarding, NOT FOUND: rebound Auscultation: FOUND: normoactive (x4) (CLAUDIA ORNELAS APRN) Musculoskeletal (brief) Musculoskeletal Brief: NOT FOUND: deformity, loss of motion (CLAUDIA ORNELAS APRN) Integumentary (brief) Integumentary Brief: FOUND: dry, warm (CLAUDIA ORNELAS APRN) Neurologic (brief) Neurological Brief: FOUND: CN w/o gross def to obs, motor-no gross deficits, sensory-no gross deficits (CLAUDIA ORNELAS APRN) Psychiatric (brief) Psychiatric Brief: FOUND: alert, normal affect, oriented (CLAUDIA ORNELAS APRN ) Differential Diagnoses Considering: Dehydration, Diverticulitis, Gastroenteritis, Hypokalemia, Pancreatitis, Pneumonia, UTI, Viral Syndrome Considering: Ileus Considering: Acute Bronchitis, Pulmonary Edema, Pulmonary Embolus (CLAUDIA ORNELAS APRN) Progress Results/Orders Orders Procedure Category Date Status Time Cbc W/Auto LAB 12/17/16 Complete Diff-Reflex Manual 14:31 Cmp - Comprehensive LAB 12/17/16 Complete Metabolic 14:31 Lipase LAB 12/17/16 Complete 14:31 Iv Lock (Ed Only) EDM 12/17/16 Transmitted 14:31 Normal Saline (Normal PHA 12/17/16 Complete Saline Iv) 14:31 Probnp LAB 12/17/16 Complete 14:31 Troponin I W LAB 12/17/16 Complete Hemolysis Index 14:31 INR LAB 12/17/16 Complete 14:31 EKG EKG 12/17/16 Taken 14:31 Chest, Pa & Lateral RAD 12/17/16 Resulted Fentanyl (Fentanyl) PHA 12/17/16 Complete 14:45 Promethazine PHA 12/17/16 Complete (Phenergan) 14:45 UA, LAB 12/17/16 Complete Dip&Micro(Complete) & 15:59 Urine Culture YNES 12/17/16 Complete 16:12 Ammonia LAB 12/17/16 Complete ( M DO) Lab Results Laboratory Tests Test 12/17/16 14:52 12/17/16 15:59 12/17/16 16:32 White Blood Count 6.1T/MM3 Red Blood Count 4.92M/MM3 Hemoglobin 13.6GM/DL Hematocrit 43.0% Mean Corpuscular Volume 87.4UM3 Mean Corpuscular Hemoglobin 27.6UUG Mean Corpuscular Hemoglobin Concent 31.6GM/DL RDW Standard Deviation 53.7FL Platelet Count 307T/MM3 Mean Platelet Volume 10.2UM3 Immature Granulocyte % (Auto) 0.2% Neutrophils (%) (Auto) 62.2% Lymphocytes (%) (Auto) 24.9% Monocytes (%) (Auto) 10.9% Eosinophils (%) (Auto) 1.3% Basophils (%) (Auto) 0.5% Absolute Immature Granulocyte (auto 0.01T/MM3 Absolute Neutrophils (auto) 3.8T/MM3 Absolute Lymphocytes (auto) 1.5T/MM3 Absolute Monocytes (auto) 0.7T/MM3 Absolute Eosinophils (auto) 0.1T/MM3 Absolute Basophils (auto) 0.0T/MM3 Prothromb Time International Ratio 2.83 Turbidity < 20 Sodium Level 145MEQ/L Potassium Level 3.6MEQ/L Chloride Level 100MEQ/L Carbon Dioxide Level 29MEQ/L Anion Gap 16MEQ/L Blood Urea Nitrogen 19.0MG/DL Creatinine 1.1MG/DL Glomerular Filtration Rate Calc 50 BUN/Creatinine Ratio 17RATIO Glucose Level 141MG/DL Calculated Osmolality 283MOSM/KG Calcium Level 8.6MG/DL Total Bilirubin 0.90MG/DL Icterus Index < 2 Aspartate Amino Transf (AST/SGOT) 23U/L Alanine Aminotransferase (ALT/SGPT) 46U/L Alkaline Phosphatase 100U/L Troponin I < 0.012ng/ml FF-Mxf-V-Type Natriuretic Peptide 2190PG/ML Total Protein 7.1G/DL Albumin 3.8G/DL Globulin 3.3G/DL Albumin/Globulin Ratio 1.2RATIO Lipase 189U/L Chemistry Specimen Hemolysis < 15 Urine Collection Type Voided-not cc-midstr Urine Color Yellow Urine Turbidity Cloudy Urine pH 5.5 Urine Specific Froid >=1.030 Urine Protein 2+ Urine Glucose (UA) Negative Urine Ketones Negative Urine Blood 1+ Urine Nitrite Negative Urine Bilirubin Negative Urine Urobilinogen 1.0EU/DL Urine Leukocyte Esterase Negative Urine RBC 1-3/HPF Urine WBC 10-20/HPF Urine WBC Clumps Few Urine Bacteria 3+ Urine Culture Indicated Cult reflexed &setup Ammonia 55UMOL/L () Medications Current ED Medications Sodium Chloride (Normal Saline IV) 1,000 ml @ 125 mls/hr Q8H ONCE IV Last administered on 12/17/16 15:16; Start 12/17/16 at 14:31; Stop 12/17/16 at 17:52; Status DC Fentanyl (Fentanyl) 50 mcg O ONCE IV Last administered on 12/17/16 15:17; Start 12/17/16 at 14:45; Stop 12/17/16 at 14:46; Status DC Promethazine HCl (Phenergan) 25 mg O ONCE IV Last administered on 12/17/16 15: 16; Start 12/17/16 at 14:45; Stop 12/17/16 at 14:46; Status DC () Progress Progress CBC unremarkable NA 145 Anion gap 16 BUN 19 Creatinine 1.1 Glucose 141 Pro BNP 2190 Troponin < 1.012 Bilirubin and LFT normal UA SG 1.030, WBC 5-10, no LE or nitrates I discussed labs, EKG and CXR with patient. Patient had to be awaken to discussed labs. Patient is very sleepy after fentanyl and Phenergan. Says she is not feeling any better. Provider care turned over to Dr. Diallo at 1652. (CLAUDIA ORNELAS APRN) Progress Discussed care with hospitalist. No indications for further eval/urgent treatment at this time. Will d/c to home with f/u with PCM. () EKG EKG : Rate: 60-100 Rhythm: ventricular (paced) Interpreted by: signing physician (Dr. Diallo) (CLAUDIA ORNELAS APRN) Consult/PCP Consult/PCP #1: Physician Contacted: Dr. Helms Time Called: 16:10 Type of discussion: Phone Consult/PCP Discussion Details I discussed patient's HPI, past medical history, vital signs, exam findings, EKG and chest x-ray with Dr. Helms. Dr. Helms expressed concern that patient may need to be admitted even though labs are unremarkable. She would like an ammonia. Dr. Helms says this patient has past hx. of becoming very ill quickly. Consult/PCP #2: Time Called: 16:20 (CLAUDIA ORNELAS APRN) Consult/PCP : Physician Contacted: Dr. Taylor Time Called: 16:58 Time of first response: 17:02 Type of discussion: Admit Discussion/PCP Discussion Details Discussed pt with hospitalist. No indications for admission, further work up, or urgent care. () Xray Xray : Xray: CXR PA/Lat (no pneumonia or overt congestive failure) (CLAUDIA ORNELAS APRN) CLAUDIA ORNELAS APRN December 17, 2016 14:20 DECEMBER,NACHO Handy DO December 17, 2016 16:58 Xray: CXR PA/Lat (no pneumonia or overt congestive failure) (CLAUDIA ORNELAS APRN) CLAUDIA ORNELAS APRN December 17, 2016 14:20 DECEMBER,NACHO Handy DO December 17, 2016 16:58
[2016-12-17] MEDS ORDERED: NORMAL SALINE 1,000 ML IV ONE (14:31)
--- OUTSIDE RECORDS SUMMARY | 2016-12-17 14:34 | XMS REPORT | Continuity of Care Document ---
Author Author [facility] Organization [facility] Address Unknown Phone Unavailable Allergies Active [...] PLATELET COUNT 248 k/cumm 150-450 METABOLIC PANEL, [facility] - 10/16/16 06:05 POTASSIUM 3.6 mmol/L [...] 10/16/16 09:42 ACT PLUS (POC) 166 sec [place] <160 ACT PLUS (POC) - 10/16/16 10:27 ACT PLUS (POC) 263 sec [place] <160 ACT PLUS (POC) - 10/16/16 10:52 ACT PLUS (POC) 272 sec [place] <160 ACT PLUS (POC) - 10/16/16 11:15 ACT PLUS (POC) 403 sec [place] <160 ACT PLUS (POC) - 10/16/16 11:42 ACT PLUS (POC) 347 sec [place] <160 ACT PLUS (POC) - 10/16/16 12:07 ACT PLUS (POC) 395 sec [place] <160 ACT PLUS (POC) - 10/16/16 12:36 ACT PLUS (POC) 401 sec [place] <160 GLUCOSE (POC) - 10/16/16 13:17 GLUCOSE (POC) 193 mg/dL 70-99 ACT PLUS (POC) - 10/16/16 13:19 ACT PLUS (POC) 366 sec [place] <160 GLUCOSE (POC) - 10/16/16 20:31 GLUCOSE [...] Status Pt. Type Provider Facility Loc./Unit Complaint [id number] 10/25/2013 08:28:00 10/25/2013 23 :59:59 CLS Outpatient [id number] 07/19/2013 13:40:00 07/19/2013 23 :59:59 CLS Outpatient
--- OUTSIDE RECORDS SUMMARY | 2016-12-17 14:35 | XMS REPORT ---
Author Author [place], [facility] - Organization Unknown Address Unknown Phone Unavailable [...] the responsibility of the patient or patient food service sales representatives to confirm the list of medications with [...] Clean Catch Received : 05/16/13 11:10 Order#: [id number] Urine Culture FINAL 05/17/13 07:11 F Mixed dominic indicative of skin contamination F: Performed at: [facility], [address] [facility], [place] FOR RESULTS: * - NEW RESULT - RESULT WAS MODIFIED AFTER FINAL STATUS SET
[2016-12-17] MEDS ORDERED: PROMETHAZINE 25 MG INJECTION IV ONE (14:45)
[2016-12-17] MEDS ORDERED: FENTANYL 100mcg/2ml INJECTION IV ONE (14:45)
[2016-12-17 15:05] LABS: BASOPHILS % (AUTO) 0.5 % (0-2); EOSINOPHILS # (AUTO) 0.1 T/MM3 (0-0.5); EOSINOPHILS % (AUTO) 1.3 % (0-4); HGB - HEMOGLOBIN 13.6 GM/DL (12-16); IMMATURE GRANULOCYTE # (AUTO) 0.01 T/MM3 (0.00-0.03); IMMATURE GRANULOCYTE % (AUTO) 0.2 % (0.0-0.5); LYMPHOCYTES # (AUTO) 1.5 T/MM3 (1-4.8); LYMPHOCYTES % (AUTO) 24.9 % (23-45); MEAN CORPUSCULAR HGB 27.6 UUG (26-34); MEAN CORPUSCULAR HGB CONC(MCHC 31.6 GM/DL (31-37); MEAN CORPUSCULAR VOLUME 87.4 UM3 (80-100); MEAN PLATELET VOLUME 10.2 UM3 (9.4-12.4); MONOCYTES # (AUTO) 0.7 T/MM3 (0-0.8); MONOCYTES % (AUTO) 10.9 % (0-9.0); NEUTROPHILS #(AUTO)-ABSOLUTE 3.8 T/MM3 (1.8-7.7); NEUTROPHILS % (AUTO) 62.2 % (33-66); RED BLOOD COUNT 4.92 M/MM3 (4.00-5.20); WBC - WHITE BLOOD COUNT 6.1 T/MM3 (4.5-11.0)
[2016-12-17 15:12] LABS: ALBUMIN 3.8 G/DL (3.5-5.0); ALBUMIN/GLOBULIN RATIO 1.2 RATIO (1.1-2.2); ALKALINE PHOSPHATASE 100 U/L (38-126); ALT (SGPT) 46 U/L (9-52); ANION GAP 16 MEQ/L (5-15); AST (SGOT) 23 U/L (14-36); BUN/CREATININE RATIO 17 RATIO (6-26); CALCIUM 8.6 MG/DL (8.4-10.2); CHLORIDE 100 MEQ/L (98-107); CO2 - CARBON DIOXIDE 29 MEQ/L (22-30); CREATININE 1.1 MG/DL (0.7-1.2); GLOMERULAR FILTRATION RATE 50; GLUCOSE 141 MG/DL (65-110); INR 2.83 (0.76-1.04); LIPASE 189 U/L (23-300); POTASSIUM 3.6 MEQ/L (3.6-5); PROTHROMBIN TIME 30.9 SEC (9.31-12.49); SODIUM 145 MEQ/L (134-144); TOTAL PROTEIN 7.1 G/DL (6.3-8.2)
--- NOTE | 2016-12-17 15:18 | DI ---
INDICATION: ITS.REASON: cough for 1 month PROCEDURE: CHEST 2-VIEWS UPRIGHT (PA \T\ LAT) Encounter: Initial COMPARISON: November 24, 2016 FINDINGS: Lungs are stable in appearance. No consolidative pneumonia, pleural effusion or pneumothorax. Cardiac silhouette remains severely enlarged with prior CABG changes and cardiac valve replacement. Left cardiac pacemaker defibrillator. Pulmonary vascularity is grossly normal. Mediastinal contours are stable. Impression: No pneumonia or overt congestive failure. .
[2016-12-17 15:23] LABS: PROBNP 2190 PG/ML (0-175)
[2016-12-17 16:03] LABS: BLOOD, URINE 1+ (NEGATIVE); COLOR,URINE YELLOW (YELLOW); LEUKOCYTE ESTERASE ,URINE NEGATIVE (NEGATIVE); NITRITE,URINE NEGATIVE (NEGATIVE)
[2016-12-17 16:12] LABS: BACTERIA,URINE 3+ (NEGATIVE); WBC CLUMPS,URINE FEW
[2016-12-17 17:20] VITALS: BP 113/76; PULSE 99; RESP 18; TEMP 97.6; O2SAT 95
--- NOTE | 2016-12-19 17:43 | NUR ---
MICROBIOLOGY URINE CULTURE REVIEWED BY DR GELLER. POSITIVE FOR E COLI. DR. GELLER ORDERED TO START MACROBID [id number] MG PO BID X7 DAYS. THIS NURSE ATTEMPTED TO CALL PATIENT. NO ANSWER. MESSAGE LEFT.
== END 2016-12-17 17:20 | disposition home or self-care (01) ==
LOC: ED 13:57
DX: R11.2 Nausea with vomiting, unspecified (principal); R07.9 Chest pain, unspecified; R05 Cough; I11.0 Hypertensive heart disease with heart failure; I50.9 Heart failure, unspecified; E11.9 Type 2 diabetes mellitus without complications; Z79.01 Long term (current) use of anticoagulants; Z79.899 Other long term (current) drug therapy
CPT/HCPCS: 36415; 51701; 71020; 80053; 81001; 82140; 83690; 83880; 84484; 85025; 85610; 87077; 87086; 87186; 93005; 96374; 96375; 99284; J2550; J3010; J7030; 36000